=== PATIENT | female | born 1955 | race African-American/Black ===

== ENCOUNTER 2017-09-24 08:31 | Inpatient (IN) ==
[2017-09-24 10:11] LABS: Basophils % 0.3 % (0.0-0.8); Eosinophils # 0.2 10*3/uL (0.0-0.87); Eosinophils % 2.4 % (0.00-10.9); Hematocrit 31.1 VOL% (35.7-47.0); Hemoglobin 9.6 GM/DL (12.0-16.0); Immature Granulocytes % 0.3 %; Immature Granulocytes Absolute 0.02 #; Lymphocytes # 1.4 10*3/uL (1.4-4.0); Lymphocytes % 19.6 % (21.3-54.2); Mean Corpuscular HGB Conc 30.9 GM/DL (32-36); Mean Corpuscular Hemoglobin 29 PG (27-34); Mean Corpuscular Volume 93.1 FL (87-102); Mean Platelet Volume 11.9 FL (9.6-12.0); Monocytes # 0.6 10*3/uL (0.11-0.8); Monocytes % 8.2 % (1.7-12.7); Neutrophils % 69.2 % (38.7-73.9); Platelet Count 126 T/CUMM (130-400); Red Blood Count 3.34 MC/CUMM (3.8-5.5); Red Cell Distribution Width 12.7 % (9.3-17.3); White Blood Count 7.2 T/CUMM (4-12)
[2017-09-24 10:31] LABS: INR 0.9; Partial Thromboplastin Time 27.1 SECS (0-40)
[2017-09-24 10:38] LABS: Alanine Aminotransferase 19 U/L (13-56); Albumin 2.9 G/DL (3.4-5.0); Alkaline Phosphatase 63 U/L (45-117); Aspartate Amino Transferase 10 U/L (0-37); Bilirubin,Total < 0.39 MG/DL (0.2-1.0); Blood Urea Nitrogen 32 MG/DL (7-18); Calcium 8.1 MG/DL (8.5-10.1); Glucose 168 MG/DL (74-106); Osmolality,Calculated 300.6 MOS/KG (273-304); Potassium 4.2 MMOL/L (3.5-5.1); Sodium 146 MMOL/L (136-145); Total Protein 6.2 G/DL (6.4-8.3)
[2017-09-24] MEDS ORDERED: ONDANSETRON 4 MG/2 ML VIAL IV PRN (11:48)
[2017-09-24] MEDS ORDERED: KETOROLAC 30 MG/1 ML VIAL IV PRN (11:48)
[2017-09-24] MEDS ORDERED: ACETAMINOPHEN 325 MG TABLET PO PRN (11:48)
[2017-09-24] MEDS ORDERED: FUROSEMIDE 40 MG TABLET PO PRN (11:53)
[2017-09-24] MEDS ORDERED: NON-FORMULARY MEDICATION (Albuterol Inhaler 2 PUFF) INH PRN (11:53)
[2017-09-24] MEDS ORDERED: ENOXAPARIN 30 MG/0.3 ML SYRINGE SUBCUT SCH ×2 (12:00→21:00)
[2017-09-24] MEDS ORDERED: KETOROLAC 30 MG/1 ML VIAL IM PRN (16:11)
[2017-09-24] MEDS ORDERED: INSULIN DETEMIR 100 UNIT/ML SUBCUT SCH ×2 (16:30→17:00)
[2017-09-24] MEDS ORDERED: GLUCAGON 1 MG VIAL IM PRN (16:38)
[2017-09-24] MEDS ORDERED: KETOROLAC 0.4% LEFT EYE SCH (17:00)
[2017-09-24] MEDS: INSULIN LISPRO 100 UNIT/ML SUBCUT SCH (17:50)
[2017-09-24] MEDS ORDERED: ISOSORBIDE MONONITRATE 30 MG TABLET PO SCH (21:00)
[2017-09-24] MEDS ORDERED: PREGABALIN 100 MG CAPSULE PO SCH (21:00)
[2017-09-24] MEDS ORDERED: levETIRAcetam 500 MG TABLET PO SCH (21:00)
[2017-09-24] MEDS ORDERED: INSULIN ASPART 20 UNIT SUBCUT SCH (21:00)
[2017-09-24] MEDS ORDERED: DOCUSATE SODIUM 100 MG CAPSULE PO SCH (21:00)
[2017-09-24] MEDS: levETIRAcetam 250 MG TABLET PO SCH (21:22)
[2017-09-24] MEDS: PREGABALIN 75 MG CAPSULE PO SCH (21:24)
[2017-09-24] MEDS: ISOSORBIDE MONONITRATE 30 MG TABLET PO SCH (21:24)
[2017-09-24] MEDS: INSULIN REGULAR 100 UNIT/ML SUBCUT SCH (21:24)
[2017-09-24] MEDS: ENOXAPARIN 30 MG/0.3 ML SYRINGE SUBCUT SCH (21:25)
[2017-09-24] MEDS: INSULIN GLARGINE 100 UNIT/ML SUBCUT SCH (21:25)
[2017-09-25 07:09] LABS: Basophils % 0.2 % (0.0-0.8); Eosinophils # 0.2 10*3/uL (0.0-0.87); Eosinophils % 3.2 % (0.00-10.9); Hematocrit 29.3 VOL% (35.7-47.0); Hemoglobin 8.8 GM/DL (12.0-16.0); Immature Granulocytes % 0.6 %; Immature Granulocytes Absolute 0.04 #; Lymphocytes # 1.4 10*3/uL (1.4-4.0); Lymphocytes % 22.5 % (21.3-54.2); Mean Corpuscular Hemoglobin 28 PG (27-34); Mean Corpuscular Volume 94.5 FL (87-102); Mean Platelet Volume 12.2 FL (9.6-12.0); Monocytes # 0.6 10*3/uL (0.11-0.8); Monocytes % 9.4 % (1.7-12.7); Neutrophils % 64.1 % (38.7-73.9); Platelet Count 127 T/CUMM (130-400); Red Cell Distribution Width 12.7 % (9.3-17.3); White Blood Count 6.2 T/CUMM (4-12)
[2017-09-25] MEDS ORDERED: INSULIN DETEMIR 100 UNIT/ML SUBCUT SCH (07:30)
[2017-09-25] MEDS ORDERED: GLIMEPIRIDE 2 MG TABLET PO SCH (08:00)
[2017-09-25] MEDS: OLMESARTAN 20 MG TABLET PO SCH (08:28)
[2017-09-25] MEDS: CHOLECALCIFEROL 1,000 UNIT TABLET PO SCH (08:28)
[2017-09-25] MEDS: ISOSORBIDE MONONITRATE 30 MG TABLET PO SCH ×2 (08:28→20:51)
[2017-09-25] MEDS: PREGABALIN 75 MG CAPSULE PO SCH ×2 (08:28→20:51)
[2017-09-25] MEDS: EZETIMIBE 10 MG TABLET PO SCH (08:28)
[2017-09-25] MEDS: INSULIN LISPRO 100 UNIT/ML SUBCUT SCH ×2 (08:29→16:46)
[2017-09-25] MEDS: sitaGLIPtin 100 MG TABLET PO SCH (08:29)
[2017-09-25] MEDS: INSULIN REGULAR 100 UNIT/ML SUBCUT SCH ×4 (08:29→20:50)
[2017-09-25] MEDS: levETIRAcetam 250 MG TABLET PO SCH ×2 (08:29→20:51)
[2017-09-25] MEDS: DOXAZOSIN 1 MG TABLET PO SCH (08:29)
[2017-09-25] MEDS: GLIMEPIRIDE 2 MG TABLET PO SCH (08:29)
[2017-09-25] MEDS: INSULIN GLARGINE 100 UNIT/ML SUBCUT SCH ×2 (08:29→20:51)
[2017-09-25] MEDS ORDERED: DOXAZOSIN 1 MG TABLET PO SCH (09:00)
[2017-09-25] MEDS ORDERED: OLMESARTAN 20 MG TABLET PO SCH (09:00)
[2017-09-25] MEDS ORDERED: NON-FORMULARY MEDICATION (Fluticasone/Vilanterol [Breo Ellipta 100-25 Mcg Inh] 1 PUFF) PO SCH (09:00)
[2017-09-25] MEDS ORDERED: NON-FORMULARY MEDICATION (Cholecalciferol (Vitamin D3) [Vitamin D3] 1,000 UNIT) PO SCH (09:00)
[2017-09-25] MEDS ORDERED: PANTOPRAZOLE 40 MG TABLET PO SCH (09:00)
[2017-09-25] MEDS: cefTRIAXone 1,000 MG in SYRINGE 1 EACH IV SCH (15:51)
[2017-09-25] MEDS: ENOXAPARIN 30 MG/0.3 ML SYRINGE SUBCUT SCH (20:50)
[2017-09-26] MEDS: ISOSORBIDE MONONITRATE 30 MG TABLET PO SCH ×2 (09:14→21:02)
[2017-09-26] MEDS: levETIRAcetam 250 MG TABLET PO SCH ×2 (09:14→21:01)
[2017-09-26] MEDS: CHOLECALCIFEROL 1,000 UNIT TABLET PO SCH (09:14)
[2017-09-26] MEDS: DOXAZOSIN 1 MG TABLET PO SCH (09:14)
[2017-09-26] MEDS: sitaGLIPtin 100 MG TABLET PO SCH (09:14)
[2017-09-26] MEDS: OLMESARTAN 20 MG TABLET PO SCH (09:15)
[2017-09-26] MEDS: INSULIN GLARGINE 100 UNIT/ML SUBCUT SCH ×2 (09:15→21:06)
[2017-09-26] MEDS: INSULIN LISPRO 100 UNIT/ML SUBCUT SCH ×2 (09:15→16:59)
[2017-09-26] MEDS: GLIMEPIRIDE 2 MG TABLET PO SCH (09:15)
[2017-09-26] MEDS: EZETIMIBE 10 MG TABLET PO SCH (09:15)
[2017-09-26] MEDS: INSULIN REGULAR 100 UNIT/ML SUBCUT SCH ×4 (09:16→21:05)
[2017-09-26] MEDS: PREGABALIN 75 MG CAPSULE PO SCH ×2 (09:46→21:01)
[2017-09-26] MEDS: cefTRIAXone 1,000 MG in SYRINGE 1 EACH IV SCH (14:53)
[2017-09-26] MEDS ORDERED: CHLORHEXIDINE 4% SOLN 118 ML BOTTLE TOP ONE (17:25)
[2017-09-26] MEDS: SKIN HEALING OINT (AQUAPHOR) 50 GM TUBE TOP SCH (18:26)
[2017-09-26] MEDS: BACITRACIN OINT 0.9 GM PACK TOP SCH (18:26)
[2017-09-26] MEDS: ENOXAPARIN 30 MG/0.3 ML SYRINGE SUBCUT SCH (21:02)
[2017-09-27 07:20] LABS: Basophils % 0.1 % (0.0-0.8); Eosinophils # 0.1 10*3/uL (0.0-0.87); Immature Granulocytes % 0.4 %; Immature Granulocytes Absolute 0.03 #; Lymphocytes # 0.9 10*3/uL (1.4-4.0); Lymphocytes % 13.7 % (21.3-54.2); Mean Corpuscular Hemoglobin 29 PG (27-34); Mean Corpuscular Volume 92.1 FL (87-102); Mean Platelet Volume 12.4 FL (9.6-12.0); Monocytes # 0.7 10*3/uL (0.11-0.8); Monocytes % 10.2 % (1.7-12.7); Neutrophils # 5.1 10*3/uL (1.4-7.4); Neutrophils % 74.6 % (38.7-73.9); Platelet Count 133 T/CUMM (130-400); Red Blood Count 3.15 MC/CUMM (3.8-5.5); Red Cell Distribution Width 12.6 % (9.3-17.3); White Blood Count 6.9 T/CUMM (4-12)
[2017-09-27 07:43] LABS: Albumin 2.6 G/DL (3.4-5.0); Bilirubin,Total 0.9 MG/DL (0.2-1.0); Calcium 8.3 MG/DL (8.5-10.1); Osmolality,Calculated 291.7 MOS/KG (273-304); Potassium 4.9 MMOL/L (3.5-5.1); Total Protein 5.6 G/DL (6.4-8.3)
[2017-09-27] MEDS: DEXTROSE 50% 25 GM/50 ML VIAL IV PRN (08:05)
[2017-09-27] MEDS: INSULIN REGULAR 100 UNIT/ML SUBCUT SCH ×4 (08:27→20:38)
[2017-09-27] MEDS: GLIMEPIRIDE 2 MG TABLET PO SCH (08:27)
[2017-09-27] MEDS ORDERED: SKIN HEALING OINT (AQUAPHOR) 50 GM TUBE TOP SCH (09:00)
[2017-09-27] MEDS: PREGABALIN 75 MG CAPSULE PO SCH ×2 (09:21→20:08)
[2017-09-27] MEDS: EZETIMIBE 10 MG TABLET PO SCH (09:21)
[2017-09-27] MEDS: levETIRAcetam 250 MG TABLET PO SCH ×2 (09:21→20:07)
[2017-09-27] MEDS: BACITRACIN OINT 0.9 GM PACK TOP SCH (09:22)
[2017-09-27] MEDS: DOXAZOSIN 1 MG TABLET PO SCH (09:22)
[2017-09-27] MEDS: CHOLECALCIFEROL 1,000 UNIT TABLET PO SCH (09:22)
[2017-09-27] MEDS: OLMESARTAN 20 MG TABLET PO SCH (09:22)
[2017-09-27] MEDS: ISOSORBIDE MONONITRATE 30 MG TABLET PO SCH ×2 (09:22→20:08)
[2017-09-27] MEDS: FERROUS SULFATE 325 MG TABLET PO SCH (09:24)
[2017-09-27] MEDS: SKIN HEALING OINT (AQUAPHOR) 50 GM TUBE TOP SCH (09:24)
[2017-09-27] MEDS: sitaGLIPtin 100 MG TABLET PO SCH (10:05)
[2017-09-27] MEDS: INSULIN LISPRO 100 UNIT/ML SUBCUT SCH (10:05)
[2017-09-27] MEDS: ALBUTEROL/IPRATROPIUM 3 ML NEB RESP TX SCH ×4 (11:58→22:03)
[2017-09-27] MEDS: cefTRIAXone 1,000 MG in SYRINGE 1 EACH IV SCH (15:47)
[2017-09-27] MEDS: ENOXAPARIN 30 MG/0.3 ML SYRINGE SUBCUT SCH (20:08)
[2017-09-28] MEDS: ALBUTEROL/IPRATROPIUM 3 ML NEB RESP TX SCH ×6 (01:02→19:16)
[2017-09-28 05:41] LABS: Basophils % 0.2 % (0.0-0.8); Eosinophils # 0.2 10*3/uL (0.0-0.87); Eosinophils % 2.4 % (0.00-10.9); Hematocrit 27.4 VOL% (35.7-47.0); Hemoglobin 8.5 GM/DL (12.0-16.0); Immature Granulocytes % 0.5 %; Immature Granulocytes Absolute 0.03 #; Lymphocytes # 1.1 10*3/uL (1.4-4.0); Lymphocytes % 17.5 % (21.3-54.2); Mean Corpuscular Hemoglobin 29 PG (27-34); Mean Corpuscular Volume 91.9 FL (87-102); Mean Platelet Volume 11.9 FL (9.6-12.0); Monocytes # 0.6 10*3/uL (0.11-0.8); Monocytes % 10.1 % (1.7-12.7); Neutrophils # 4.4 10*3/uL (1.4-7.4); Neutrophils % 69.3 % (38.7-73.9); Platelet Count 124 T/CUMM (130-400); Red Blood Count 2.98 MC/CUMM (3.8-5.5); Red Cell Distribution Width 12.5 % (9.3-17.3); White Blood Count 6.3 T/CUMM (4-12)
[2017-09-28 06:24] LABS: Calcium 8.3 MG/DL (8.5-10.1); Osmolality,Calculated 301.7 MOS/KG (273-304)
[2017-09-28] MEDS: DOXAZOSIN 1 MG TABLET PO SCH (10:00)
[2017-09-28] MEDS: OLMESARTAN 20 MG TABLET PO SCH (10:00)
[2017-09-28] MEDS: sitaGLIPtin 100 MG TABLET PO SCH (10:00)
[2017-09-28] MEDS: SKIN HEALING OINT (AQUAPHOR) 50 GM TUBE TOP SCH (10:00)
[2017-09-28] MEDS: FERROUS SULFATE 325 MG TABLET PO SCH (10:00)
[2017-09-28] MEDS: PREGABALIN 75 MG CAPSULE PO SCH ×2 (10:00→22:05)
[2017-09-28] MEDS: BACITRACIN OINT 0.9 GM PACK TOP SCH (10:00)
[2017-09-28] MEDS: EZETIMIBE 10 MG TABLET PO SCH (10:00)
[2017-09-28] MEDS: levETIRAcetam 250 MG TABLET PO SCH ×2 (10:00→22:06)
[2017-09-28] MEDS: CHOLECALCIFEROL 1,000 UNIT TABLET PO SCH (10:00)
[2017-09-28] MEDS: ISOSORBIDE MONONITRATE 30 MG TABLET PO SCH ×2 (10:00→22:06)
[2017-09-28] MEDS: INSULIN REGULAR 100 UNIT/ML SUBCUT SCH ×4 (10:01→22:12)
[2017-09-28] MEDS: GLIMEPIRIDE 2 MG TABLET PO SCH (10:01)
[2017-09-28] MEDS ORDERED: SODIUM CHLORIDE 0.9% 1,000 ML IV PRN (16:19)
[2017-09-28] MEDS: cefTRIAXone 1,000 MG in SYRINGE 1 EACH IV SCH (17:20)
[2017-09-28] MEDS: predniSONE 20 MG TABLET PO SCH (18:42)
[2017-09-28] MEDS: FUROSEMIDE 40 MG/4 ML VIAL IV SCH (22:08)
[2017-09-28] MEDS: ENOXAPARIN 30 MG/0.3 ML SYRINGE SUBCUT SCH (22:12)
[2017-09-29] MEDS: ALBUTEROL/IPRATROPIUM 3 ML NEB RESP TX SCH ×3 (00:21→08:23)
[2017-09-29] MEDS: hydrALAZINE 25 MG TABLET PO SCH ×3 (01:08→09:52)
[2017-09-29] MEDS: INSULIN GLARGINE 100 UNIT/ML SUBCUT SCH ×3 (01:08→21:39)
[2017-09-29] MEDS: hydrALAZINE 20 MG/1 ML VIAL IV PRN (02:27)
[2017-09-29] MEDS ORDERED: METOPROLOL TARTRATE 5 MG/5 ML VIAL IV ONE (03:15)
[2017-09-29] MEDS ORDERED: FUROSEMIDE 40 MG/4 ML VIAL IV ONE (03:22)
[2017-09-29] MEDS ORDERED: FUROSEMIDE 20 MG/2 ML VIAL ONE (03:24)
[2017-09-29 04:55] LABS: Apearance,Urine CLEAR (Clear); Bilirubin,Urine Negative (Negative); Blood, Urine Negative (Negative); Glucose,Urine (UA) Negative (Negative); Hyaline Casts,Urine 2 /LPF (0-3); Ketones,Urine Negative (Negative); Mucus,Urine Occasional /LPF (Occasional); Nitrite,Urine Negative (Negative); Protein,Urine Negative; RBC,Urine <1 /HPF (0-4); Urine Color Straw (Yellow); Urine Specific Gravity 1.006 (1.001-1.035); Urine Urobilinogen < 2.0 EU/DL (0.2-1.0)
[2017-09-29 06:31] LABS: Basophils % 0.1 % (0.0-0.8); Eosinophils % 0.3 % (0.00-10.9); Hematocrit 30.5 VOL% (35.7-47.0); Hemoglobin 9.5 GM/DL (12.0-16.0); Immature Granulocytes % 0.8 %; Immature Granulocytes Absolute 0.06 #; Lymphocytes # 0.4 10*3/uL (1.4-4.0); Lymphocytes % 5.4 % (21.3-54.2); Mean Corpuscular HGB Conc 31.1 GM/DL (32-36); Mean Corpuscular Hemoglobin 28 PG (27-34); Mean Corpuscular Volume 91.3 FL (87-102); Mean Platelet Volume 12.4 FL (9.6-12.0); Monocytes # 0.2 10*3/uL (0.11-0.8); Neutrophils # 6.7 10*3/uL (1.4-7.4); Neutrophils % 90.4 % (38.7-73.9); Platelet Count 138 T/CUMM (130-400); Red Blood Count 3.34 MC/CUMM (3.8-5.5); Red Cell Distribution Width 12.4 % (9.3-17.3); White Blood Count 7.4 T/CUMM (4-12)
[2017-09-29 06:53] LABS: Albumin 2.8 G/DL (3.4-5.0); Bilirubin,Total 0.5 MG/DL (0.2-1.0); Calcium 8.4 MG/DL (8.5-10.1); Osmolality,Calculated 299.1 MOS/KG (273-304); Potassium 5.4 MMOL/L (3.5-5.1); Total Protein 6.3 G/DL (6.4-8.3)
[2017-09-29] MEDS ORDERED: INSULIN GLARGINE 100 UNIT/ML SUBCUT SCH (09:00)
[2017-09-29] MEDS: FUROSEMIDE 40 MG TABLET PO PRN (09:50)
[2017-09-29] MEDS: FERROUS SULFATE 325 MG TABLET PO SCH (09:50)
[2017-09-29] MEDS: predniSONE 20 MG TABLET PO SCH (09:51)
[2017-09-29] MEDS: ISOSORBIDE MONONITRATE 30 MG TABLET PO SCH ×2 (09:51→21:35)
[2017-09-29] MEDS: sitaGLIPtin 100 MG TABLET PO SCH (09:51)
[2017-09-29] MEDS: PREGABALIN 75 MG CAPSULE PO SCH ×2 (09:51→21:34)
[2017-09-29] MEDS: levETIRAcetam 250 MG TABLET PO SCH ×2 (09:51→21:34)
[2017-09-29] MEDS: EZETIMIBE 10 MG TABLET PO SCH (09:51)
[2017-09-29] MEDS: CHOLECALCIFEROL 1,000 UNIT TABLET PO SCH (09:51)
[2017-09-29] MEDS: OLMESARTAN 20 MG TABLET PO SCH (09:51)
[2017-09-29] MEDS: SKIN HEALING OINT (AQUAPHOR) 50 GM TUBE TOP SCH (09:52)
[2017-09-29] MEDS: BACITRACIN OINT 0.9 GM PACK TOP SCH (09:52)
[2017-09-29] MEDS: GLIMEPIRIDE 2 MG TABLET PO SCH ×3 (09:52→21:34)
[2017-09-29] MEDS: INSULIN REGULAR 100 UNIT/ML SUBCUT SCH ×4 (09:53→21:38)
[2017-09-29] MEDS: DOXAZOSIN 1 MG TABLET PO SCH (10:00)
[2017-09-29] MEDS: FUROSEMIDE 40 MG/4 ML VIAL IV SCH ×3 (10:14→11:20)
[2017-09-29] MEDS ORDERED: SODIUM POLYSTYRENE SULFATE 15 GM/60 ML BOTTLE PO STA (10:22)
[2017-09-29] MEDS: BUDESONIDE 0.25 MG/2 ML NEB RESP TX SCH ×2 (11:43→19:56)
[2017-09-29] MEDS: SODIUM CHLORIDE 0.45% 1,000 ML IV SCH (12:41)
[2017-09-29] MEDS: methylPREDNISolone SOD SUC 40 MG/1 ML VIAL IV SCH ×3 (12:43→17:37)
[2017-09-29] MEDS: cefTRIAXone 1,000 MG in SYRINGE 1 EACH IV SCH (15:31)
[2017-09-29] MEDS: ENOXAPARIN 30 MG/0.3 ML SYRINGE SUBCUT SCH (21:38)
[2017-09-30] MEDS: SODIUM CHLORIDE 0.45% 1,000 ML IV SCH ×2 (02:31→18:10)
[2017-09-30] MEDS: methylPREDNISolone SOD SUC 40 MG/1 ML VIAL IV SCH ×3 (02:32→18:09)
[2017-09-30] MEDS: BUDESONIDE 0.25 MG/2 ML NEB RESP TX SCH ×2 (07:10→19:36)
[2017-09-30 07:21] LABS: Basophils % 0.1 % (0.0-0.8); Hematocrit 30.2 VOL% (35.7-47.0); Hemoglobin 9.4 GM/DL (12.0-16.0); Immature Granulocytes % 0.6 %; Immature Granulocytes Absolute 0.04 #; Lymphocytes # 0.4 10*3/uL (1.4-4.0); Lymphocytes % 5.8 % (21.3-54.2); Mean Corpuscular HGB Conc 31.1 GM/DL (32-36); Mean Corpuscular Hemoglobin 28 PG (27-34); Mean Corpuscular Volume 91.2 FL (87-102); Monocytes # 0.2 10*3/uL (0.11-0.8); Neutrophils # 6.1 10*3/uL (1.4-7.4); Neutrophils % 90.5 % (38.7-73.9); Platelet Count 143 T/CUMM (130-400); Red Blood Count 3.31 MC/CUMM (3.8-5.5); Red Cell Distribution Width 12.3 % (9.3-17.3); White Blood Count 6.7 T/CUMM (4-12)
[2017-09-30 07:58] LABS: Bilirubin,Total 0.4 MG/DL (0.2-1.0); Calcium 8.6 MG/DL (8.5-10.1); Osmolality,Calculated 295.4 MOS/KG (273-304); Potassium 5.1 MMOL/L (3.5-5.1); Total Protein 6.3 G/DL (6.4-8.3)
[2017-09-30] MEDS ORDERED: ETOMIDATE 20 MG/10 ML VIAL IV ONE (10:04)
[2017-09-30] MEDS ORDERED: ROCURONIUM 100 MG/10 ML VIAL IV ONE (10:04)
[2017-09-30] MEDS ORDERED: PROPOFOL 1,000 MG/100 ML BOTTLE IV ONE (10:16)
[2017-09-30] MEDS: GLIMEPIRIDE 2 MG TABLET PO SCH ×2 (10:21→20:20)
[2017-09-30] MEDS: SKIN HEALING OINT (AQUAPHOR) 50 GM TUBE TOP SCH (10:21)
[2017-09-30] MEDS: INSULIN REGULAR 100 UNIT/ML SUBCUT SCH ×4 (10:21→20:54)
[2017-09-30] MEDS: levETIRAcetam 250 MG TABLET PO SCH ×2 (10:22→20:20)
[2017-09-30] MEDS: BACITRACIN OINT 0.9 GM PACK TOP SCH (10:22)
[2017-09-30] MEDS: PREGABALIN 75 MG CAPSULE PO SCH ×2 (10:22→20:20)
[2017-09-30] MEDS: DOXAZOSIN 1 MG TABLET PO SCH (10:22)
[2017-09-30] MEDS: predniSONE 20 MG TABLET PO SCH (10:22)
[2017-09-30] MEDS: FERROUS SULFATE 325 MG TABLET PO SCH (10:22)
[2017-09-30] MEDS: ISOSORBIDE MONONITRATE 30 MG TABLET PO SCH ×2 (10:22→21:14)
[2017-09-30] MEDS: sitaGLIPtin 100 MG TABLET PO SCH (10:22)
[2017-09-30] MEDS: OLMESARTAN 20 MG TABLET PO SCH (10:22)
[2017-09-30] MEDS: FUROSEMIDE 40 MG/4 ML VIAL IV SCH (10:22)
[2017-09-30] MEDS: CHOLECALCIFEROL 1,000 UNIT TABLET PO SCH (10:23)
[2017-09-30] MEDS: EZETIMIBE 10 MG TABLET PO SCH (10:23)
[2017-09-30] MEDS: PROPOFOL 1,000 MG/100 ML BOTTLE IV SCH ×5 (10:30→22:51)
[2017-09-30 12:33] LABS: ABG Base Excess 4.3 MMOL/L (-2.5-2.5); ABG HCO3 32.7 MMOL/L (20-26); ABG PH 7.262 (7.35-7.45); ABG TCO2 34.9 MMOL/L (23-27); Allen Test Positive; Pt O2 Delivery Device Ventilator
[2017-09-30 12:37] LABS: ABG PCO2 74.1 MM HG (35-48)
[2017-09-30] MEDS: cefTRIAXone 1,000 MG in SYRINGE 1 EACH IV SCH (16:11)
[2017-09-30] MEDS: hydrALAZINE 20 MG/1 ML VIAL IV PRN ×2 (18:09→23:09)
[2017-09-30] MEDS: ENOXAPARIN 30 MG/0.3 ML SYRINGE SUBCUT SCH (20:20)
[2017-09-30] MEDS: INSULIN GLARGINE 100 UNIT/ML SUBCUT SCH ×2 (20:54)
[2017-09-30] MEDS ORDERED: FUROSEMIDE 20 MG/2 ML VIAL IV ONE (22:21)
[2017-10-01] MEDS: PROPOFOL 1,000 MG/100 ML BOTTLE IV SCH ×13 (00:59→23:25)
[2017-10-01] MEDS: methylPREDNISolone SOD SUC 40 MG/1 ML VIAL IV SCH ×3 (02:37→18:20)
[2017-10-01] MEDS: SODIUM CHLORIDE 0.45% 1,000 ML IV SCH ×4 (02:40→21:37)
[2017-10-01 03:48] LABS: Basophils % 0.1 % (0.0-0.8); Eosinophils % 0.6 % (0.00-10.9); Hematocrit 29.7 VOL% (35.7-47.0); Hemoglobin 9.3 GM/DL (12.0-16.0); Immature Granulocytes % 0.6 %; Immature Granulocytes Absolute 0.04 #; Lymphocytes % 13.7 % (21.3-54.2); Mean Corpuscular HGB Conc 31.3 GM/DL (32-36); Mean Corpuscular Hemoglobin 28 PG (27-34); Mean Corpuscular Volume 88.9 FL (87-102); Mean Platelet Volume 12.4 FL (9.6-12.0); Monocytes # 0.5 10*3/uL (0.11-0.8); Neutrophils # 5.6 10*3/uL (1.4-7.4); Platelet Count 158 T/CUMM (130-400); Red Blood Count 3.34 MC/CUMM (3.8-5.5); Red Cell Distribution Width 12.2 % (9.3-17.3); White Blood Count 7.2 T/CUMM (4-12)
[2017-10-01 04:13] LABS: ABG Base Excess 7.3 MMOL/L (-2.5-2.5); ABG HCO3 31.2 MMOL/L (20-26); ABG Oxygen Saturation 99.3 % (95-100); ABG PCO2 32.3 MM HG (35-48); ABG PH 7.569 (7.35-7.45); ABG TCO2 26.8 MMOL/L (23-27); Allen Test Positive; Pt O2 Delivery Device Ventilator
[2017-10-01 04:25] LABS: Albumin 2.8 G/DL (3.4-5.0); Bilirubin,Total 0.5 MG/DL (0.2-1.0); Calcium 8.9 MG/DL (8.5-10.1); Osmolality,Calculated 295.3 MOS/KG (273-304); Potassium 4.2 MMOL/L (3.5-5.1); Total Protein 5.7 G/DL (6.4-8.3)
[2017-10-01] MEDS: hydrALAZINE 20 MG/1 ML VIAL IV PRN ×3 (05:34→18:23)
[2017-10-01] MEDS: INSULIN REGULAR 100 UNIT/ML SUBCUT SCH ×4 (08:17→20:10)
[2017-10-01] MEDS: predniSONE 20 MG TABLET PO SCH (08:19)
[2017-10-01] MEDS: DOXAZOSIN 1 MG TABLET PO SCH (08:19)
[2017-10-01] MEDS: FERROUS SULFATE 325 MG TABLET PO SCH (08:19)
[2017-10-01] MEDS: levETIRAcetam 250 MG TABLET PO SCH (08:19)
[2017-10-01] MEDS: CHOLECALCIFEROL 1,000 UNIT TABLET PO SCH (08:19)
[2017-10-01] MEDS: PREGABALIN 75 MG CAPSULE PO SCH ×2 (08:19→20:07)
[2017-10-01] MEDS: OLMESARTAN 20 MG TABLET PO SCH (08:20)
[2017-10-01] MEDS: EZETIMIBE 10 MG TABLET PO SCH (08:21)
[2017-10-01] MEDS: ISOSORBIDE MONONITRATE 30 MG TABLET PO SCH ×2 (08:21→20:08)
[2017-10-01] MEDS: GLIMEPIRIDE 2 MG TABLET PO SCH ×2 (08:21→20:08)
[2017-10-01] MEDS: SKIN HEALING OINT (AQUAPHOR) 50 GM TUBE TOP SCH (08:24)
[2017-10-01] MEDS: FUROSEMIDE 40 MG/4 ML VIAL IV SCH (08:24)
[2017-10-01] MEDS: sitaGLIPtin 100 MG TABLET PO SCH (08:26)
[2017-10-01] MEDS: BACITRACIN OINT 0.9 GM PACK TOP SCH (08:45)
[2017-10-01] MEDS: BUDESONIDE 0.25 MG/2 ML NEB RESP TX SCH ×2 (08:50→19:35)
[2017-10-01] MEDS: cefTRIAXone 500 MG in SYRINGE 1 EACH IV SCH (10:43)
[2017-10-01] MEDS: cefTRIAXone 1,000 MG in SYRINGE 1 EACH IV SCH (14:09)
[2017-10-01] MEDS: ENOXAPARIN 40 MG/0.4 ML SYRINGE SUBCUT SCH (20:07)
[2017-10-01] MEDS: INSULIN GLARGINE 100 UNIT/ML SUBCUT SCH ×2 (20:10)
[2017-10-02] MEDS: PROPOFOL 1,000 MG/100 ML BOTTLE IV SCH ×8 (01:06→16:50)
[2017-10-02] MEDS: methylPREDNISolone SOD SUC 40 MG/1 ML VIAL IV SCH ×3 (02:09→18:35)
[2017-10-02 04:08] LABS: ABG Base Excess 4.5 MMOL/L (-2.5-2.5); ABG HCO3 26.1 MMOL/L (20-26); ABG Oxygen Saturation 98.2 % (95-100); ABG PCO2 28.5 MM HG (35-48); ABG PH 7.579 (7.35-7.45); ABG PO2 164.1 MM HG (80-95); ABG TCO2 26.9 MMOL/L (23-27)
[2017-10-02 06:03] LABS: Basophils % 0.1 % (0.0-0.8); Eosinophils # 0.1 10*3/uL (0.0-0.87); Eosinophils % 0.9 % (0.00-10.9); Hematocrit 30.4 VOL% (35.7-47.0); Hemoglobin 10.2 GM/DL (12.0-16.0); Immature Granulocytes % 0.4 %; Immature Granulocytes Absolute 0.03 #; Lymphocytes # 0.9 10*3/uL (1.4-4.0); Lymphocytes % 13.6 % (21.3-54.2); Mean Corpuscular HGB Conc 33.6 GM/DL (32-36); Mean Corpuscular Hemoglobin 30 PG (27-34); Mean Corpuscular Volume 88.6 FL (87-102); Monocytes # 0.5 10*3/uL (0.11-0.8); Monocytes % 7.8 % (1.7-12.7); Neutrophils # 5.2 10*3/uL (1.4-7.4); Neutrophils % 77.2 % (38.7-73.9); Platelet Count 167 T/CUMM (130-400); Red Blood Count 3.43 MC/CUMM (3.8-5.5); Red Cell Distribution Width 12.6 % (9.3-17.3); White Blood Count 6.8 T/CUMM (4-12)
[2017-10-02] MEDS: BUDESONIDE 0.25 MG/2 ML NEB RESP TX SCH ×2 (07:30→19:27)
[2017-10-02] MEDS: CHOLECALCIFEROL 1,000 UNIT TABLET PO SCH (08:16)
[2017-10-02] MEDS: FERROUS SULFATE 325 MG TABLET PO SCH (08:16)
[2017-10-02] MEDS: DOXAZOSIN 1 MG TABLET PO SCH (08:16)
[2017-10-02] MEDS: EZETIMIBE 10 MG TABLET PO SCH (08:16)
[2017-10-02] MEDS: predniSONE 20 MG TABLET PO SCH (08:16)
[2017-10-02] MEDS: PREGABALIN 75 MG CAPSULE PO SCH ×2 (08:16→21:14)
[2017-10-02] MEDS: OLMESARTAN 20 MG TABLET PO SCH (08:16)
[2017-10-02] MEDS: ISOSORBIDE MONONITRATE 30 MG TABLET PO SCH ×2 (08:17→21:15)
[2017-10-02] MEDS: SKIN HEALING OINT (AQUAPHOR) 50 GM TUBE TOP SCH (08:17)
[2017-10-02] MEDS: INSULIN REGULAR 100 UNIT/ML SUBCUT SCH ×4 (08:17→21:15)
[2017-10-02] MEDS: GLIMEPIRIDE 2 MG TABLET PO SCH ×2 (08:17→21:14)
[2017-10-02] MEDS: FUROSEMIDE 40 MG/4 ML VIAL IV SCH (08:18)
[2017-10-02] MEDS: sitaGLIPtin 100 MG TABLET PO SCH (08:18)
[2017-10-02] MEDS: BACITRACIN OINT 0.9 GM PACK TOP SCH (08:18)
[2017-10-02] MEDS: cefTRIAXone 500 MG in SYRINGE 1 EACH IV SCH (09:33)
[2017-10-02] MEDS: MIDAZOLAM 100 MG in SODIUM CHLORIDE 0.9% 80 ML IV SCH (09:37)
[2017-10-02] MEDS: SODIUM CHLORIDE 0.45% 1,000 ML IV SCH (11:05)
[2017-10-02] MEDS: cefTRIAXone 1,000 MG in SYRINGE 1 EACH IV SCH (16:00)
[2017-10-02] MEDS: INSULIN GLARGINE 100 UNIT/ML SUBCUT SCH ×2 (21:16)
[2017-10-02] MEDS: ENOXAPARIN 40 MG/0.4 ML SYRINGE SUBCUT SCH (21:24)
[2017-10-03] MEDS: SODIUM CHLORIDE 0.45% 1,000 ML IV SCH ×3 (01:00→21:00)
[2017-10-03] MEDS: MIDAZOLAM 100 MG in SODIUM CHLORIDE 0.9% 80 ML IV SCH ×2 (02:04→14:05)
[2017-10-03] MEDS: methylPREDNISolone SOD SUC 40 MG/1 ML VIAL IV SCH ×3 (03:45→18:35)
[2017-10-03 03:54] LABS: ABG Base Excess 5.1 MMOL/L (-2.5-2.5); ABG Oxygen Saturation 99.1 % (95-100); ABG PCO2 39.2 MM HG (35-48); ABG PH 7.477 (7.35-7.45); ABG TCO2 26.2 MMOL/L (23-27); Allen Test Positive; Pt O2 Delivery Device Ventilator
[2017-10-03 05:08] LABS: Basophils % 0.2 % (0.0-0.8); Eosinophils # 0.1 10*3/uL (0.0-0.87); Eosinophils % 1.2 % (0.00-10.9); Hematocrit 30.7 VOL% (35.7-47.0); Hemoglobin 9.6 GM/DL (12.0-16.0); Immature Granulocytes % 0.2 %; Immature Granulocytes Absolute 0.01 #; Lymphocytes % 16.5 % (21.3-54.2); Mean Corpuscular HGB Conc 31.3 GM/DL (32-36); Mean Corpuscular Hemoglobin 28 PG (27-34); Mean Corpuscular Volume 88.2 FL (87-102); Mean Platelet Volume 12.1 FL (9.6-12.0); Monocytes # 0.4 10*3/uL (0.11-0.8); Monocytes % 7.7 % (1.7-12.7); Neutrophils # 4.3 10*3/uL (1.4-7.4); Neutrophils % 74.2 % (38.7-73.9); Platelet Count 157 T/CUMM (130-400); Red Blood Count 3.48 MC/CUMM (3.8-5.5); Red Cell Distribution Width 12.8 % (9.3-17.3); White Blood Count 5.8 T/CUMM (4-12)
[2017-10-03 05:39] LABS: Calcium 8.1 MG/DL (8.5-10.1); Osmolality,Calculated 296.1 MOS/KG (273-304); Potassium 4.2 MMOL/L (3.5-5.1)
[2017-10-03] MEDS: hydrALAZINE 20 MG/1 ML VIAL IV PRN (06:38)
[2017-10-03] MEDS: BUDESONIDE 0.25 MG/2 ML NEB RESP TX SCH ×2 (07:29→18:30)
[2017-10-03] MEDS: GLIMEPIRIDE 2 MG TABLET PO SCH ×2 (08:55→20:58)
[2017-10-03] MEDS: INSULIN REGULAR 100 UNIT/ML SUBCUT SCH ×3 (08:55→17:25)
[2017-10-03] MEDS: sitaGLIPtin 100 MG TABLET PO SCH (08:56)
[2017-10-03] MEDS: ISOSORBIDE MONONITRATE 30 MG TABLET PO SCH (09:12)
[2017-10-03] MEDS: PREGABALIN 75 MG CAPSULE PO SCH ×2 (09:15→20:57)
[2017-10-03] MEDS: FERROUS SULFATE 325 MG TABLET PO SCH (09:16)
[2017-10-03] MEDS: OLMESARTAN 20 MG TABLET PO SCH (09:17)
[2017-10-03] MEDS: CHOLECALCIFEROL 1,000 UNIT TABLET PO SCH (09:17)
[2017-10-03] MEDS: predniSONE 20 MG TABLET PO SCH (09:19)
[2017-10-03] MEDS: DOXAZOSIN 1 MG TABLET PO SCH (09:21)
[2017-10-03] MEDS: EZETIMIBE 10 MG TABLET PO SCH (09:22)
[2017-10-03] MEDS: FUROSEMIDE 40 MG/4 ML VIAL IV SCH (09:32)
[2017-10-03] MEDS: cefTRIAXone 500 MG in SYRINGE 1 EACH IV SCH (09:40)
[2017-10-03] MEDS: BACITRACIN OINT 0.9 GM PACK TOP SCH (11:38)
[2017-10-03] MEDS: SKIN HEALING OINT (AQUAPHOR) 50 GM TUBE TOP SCH (15:13)
[2017-10-03] MEDS: GENTAMICIN 0.1% CREAM 15 GM TUBE TOP SCH (15:14)
[2017-10-03] MEDS: PROPOFOL 1,000 MG/100 ML BOTTLE IV SCH ×2 (15:22→22:00)
[2017-10-03] MEDS: cefTRIAXone 1,000 MG in SYRINGE 1 EACH IV SCH (16:02)
[2017-10-03] MEDS: ENOXAPARIN 40 MG/0.4 ML SYRINGE SUBCUT SCH (20:57)
[2017-10-03] MEDS: ISOSORBIDE DINITRATE 20 MG TABLET PO SCH (20:58)
[2017-10-03] MEDS: INSULIN GLARGINE 100 UNIT/ML SUBCUT SCH ×2 (20:58→20:59)
[2017-10-04] MEDS: INSULIN REGULAR 100 UNIT/ML SUBCUT SCH ×4 (00:04→17:40)
[2017-10-04] MEDS: methylPREDNISolone SOD SUC 40 MG/1 ML VIAL IV SCH ×3 (02:23→17:40)
[2017-10-04] MEDS: MIDAZOLAM 100 MG in SODIUM CHLORIDE 0.9% 80 ML IV SCH ×3 (02:53→20:06)
[2017-10-04 03:07] LABS: ABG Base Excess 3.5 MMOL/L (-2.5-2.5); ABG HCO3 27.6 MMOL/L (20-26); ABG Oxygen Saturation 98.5 % (95-100); ABG PH 7.474 (7.35-7.45); ABG TCO2 24.7 MMOL/L (23-27); Pt O2 Delivery Device Ventilator
[2017-10-04] MEDS: SODIUM CHLORIDE 0.45% 1,000 ML IV SCH ×3 (05:27→19:07)
[2017-10-04] MEDS: PROPOFOL 1,000 MG/100 ML BOTTLE IV SCH ×3 (05:28→17:41)
[2017-10-04 05:48] LABS: Prealbumin 23.2 MG/DL (20-40)
[2017-10-04] MEDS: BUDESONIDE 0.25 MG/2 ML NEB RESP TX SCH ×2 (07:30→19:47)
[2017-10-04] MEDS: hydrALAZINE 20 MG/1 ML VIAL IV PRN (09:00)
[2017-10-04] MEDS: ZINC OXIDE PASTE 113 GM TUBE TOP SCH (10:25)
[2017-10-04] MEDS: BACITRACIN OINT 0.9 GM PACK TOP SCH (10:25)
[2017-10-04] MEDS: DOXAZOSIN 1 MG TABLET PO SCH (10:25)
[2017-10-04] MEDS: SKIN HEALING OINT (AQUAPHOR) 50 GM TUBE TOP SCH (10:25)
[2017-10-04] MEDS: FERROUS SULFATE 325 MG TABLET PO SCH (10:25)
[2017-10-04] MEDS: OLMESARTAN 20 MG TABLET PO SCH (10:25)
[2017-10-04] MEDS: GLIMEPIRIDE 2 MG TABLET PO SCH ×2 (10:25→20:06)
[2017-10-04] MEDS: GENTAMICIN 0.1% CREAM 15 GM TUBE TOP SCH (10:26)
[2017-10-04] MEDS: FUROSEMIDE 40 MG/4 ML VIAL IV SCH (10:26)
[2017-10-04] MEDS: PREGABALIN 75 MG CAPSULE PO SCH ×2 (10:26→20:06)
[2017-10-04] MEDS: predniSONE 20 MG TABLET PO SCH (10:26)
[2017-10-04] MEDS: sitaGLIPtin 100 MG TABLET PO SCH (10:26)
[2017-10-04] MEDS: ISOSORBIDE DINITRATE 20 MG TABLET PO SCH ×3 (10:26→20:06)
[2017-10-04] MEDS: EZETIMIBE 10 MG TABLET PO SCH (10:27)
[2017-10-04] MEDS: CHOLECALCIFEROL 1,000 UNIT TABLET PO SCH (10:27)
[2017-10-04] MEDS: FUROSEMIDE 40 MG TABLET PO PRN (10:28)
[2017-10-04 10:30] LABS: Basophils % 0.1 % (0.0-0.8); Eosinophils % 0.5 % (0.00-10.9); Hematocrit 30.4 VOL% (35.7-47.0); Hemoglobin 9.5 GM/DL (12.0-16.0); Immature Granulocytes % 0.5 %; Immature Granulocytes Absolute 0.04 #; Lymphocytes # 0.5 10*3/uL (1.4-4.0); Mean Corpuscular HGB Conc 31.3 GM/DL (32-36); Mean Corpuscular Hemoglobin 28 PG (27-34); Mean Corpuscular Volume 89.4 FL (87-102); Mean Platelet Volume 11.5 FL (9.6-12.0); Monocytes # 0.6 10*3/uL (0.11-0.8); Monocytes % 7.6 % (1.7-12.7); Neutrophils # 6.5 10*3/uL (1.4-7.4); Neutrophils % 84.3 % (38.7-73.9); Platelet Count 151 T/CUMM (130-400); Red Cell Distribution Width 12.9 % (9.3-17.3); White Blood Count 7.7 T/CUMM (4-12)
[2017-10-04 11:25] LABS: Alanine Aminotransferase 37 U/L (13-56); Albumin 2.3 G/DL (3.4-5.0); Alkaline Phosphatase 53 U/L (45-117); Aspartate Amino Transferase 31 U/L (0-37); Bilirubin,Total < 0.39 MG/DL (0.2-1.0); Blood Urea Nitrogen 55 MG/DL (7-18); Calcium 7.8 MG/DL (8.5-10.1); Glucose 219 MG/DL (74-106); Osmolality,Calculated 296.7 MOS/KG (273-304); Sodium 138 MMOL/L (136-145); Total Protein 4.9 G/DL (6.4-8.3)
[2017-10-04] MEDS: cefTRIAXone 1,000 MG in SYRINGE 1 EACH IV SCH (16:10)
[2017-10-04] MEDS: ENOXAPARIN 40 MG/0.4 ML SYRINGE SUBCUT SCH (20:05)
[2017-10-04] MEDS: INSULIN GLARGINE 100 UNIT/ML SUBCUT SCH ×2 (22:03)
[2017-10-05] MEDS: INSULIN REGULAR 100 UNIT/ML SUBCUT SCH ×4 (00:10→17:40)
[2017-10-05] MEDS: PROPOFOL 1,000 MG/100 ML BOTTLE IV SCH ×4 (00:11→21:24)
[2017-10-05] MEDS: SODIUM CHLORIDE 0.45% 1,000 ML IV SCH ×4 (02:07→20:25)
[2017-10-05] MEDS: methylPREDNISolone SOD SUC 40 MG/1 ML VIAL IV SCH ×3 (02:08→17:46)
[2017-10-05 03:45] LABS: Allen Test Positive; Pt O2 Delivery Device Ventilator
[2017-10-05 03:52] LABS: ABG Base Excess 3.1 MMOL/L (-2.5-2.5); ABG HCO3 26.6 MMOL/L (20-26); ABG Oxygen Saturation 97.8 % (95-100); ABG PCO2 36.5 MM HG (35-48); ABG PH 7.481 (7.35-7.45); ABG TCO2 27.8 MMOL/L (23-27)
[2017-10-05 04:49] LABS: Eosinophils # 0.1 10*3/uL (0.0-0.87); Eosinophils % 0.7 % (0.00-10.9); Hematocrit 31.2 VOL% (35.7-47.0); Hemoglobin 10.1 GM/DL (12.0-16.0); Immature Granulocytes % 0.3 %; Immature Granulocytes Absolute 0.02 #; Lymphocytes # 0.7 10*3/uL (1.4-4.0); Lymphocytes % 10.4 % (21.3-54.2); Mean Corpuscular HGB Conc 32.4 GM/DL (32-36); Mean Corpuscular Hemoglobin 28 PG (27-34); Mean Corpuscular Volume 86.7 FL (87-102); Mean Platelet Volume 12.4 FL (9.6-12.0); Monocytes # 0.6 10*3/uL (0.11-0.8); Monocytes % 8.2 % (1.7-12.7); Neutrophils # 5.7 10*3/uL (1.4-7.4); Neutrophils % 80.4 % (38.7-73.9); Platelet Count 150 T/CUMM (130-400); Red Cell Distribution Width 12.8 % (9.3-17.3); White Blood Count 7.1 T/CUMM (4-12)
[2017-10-05 05:16] LABS: Albumin 2.5 G/DL (3.4-5.0); Bilirubin,Total 0.4 MG/DL (0.2-1.0); Osmolality,Calculated 300.1 MOS/KG (273-304); Total Protein 5.2 G/DL (6.4-8.3)
[2017-10-05] MEDS: BUDESONIDE 0.25 MG/2 ML NEB RESP TX SCH ×2 (07:32→20:40)
[2017-10-05] MEDS: FERROUS SULFATE 325 MG TABLET PO SCH (08:08)
[2017-10-05] MEDS: ISOSORBIDE DINITRATE 20 MG TABLET PO SCH ×2 (08:08→14:36)
[2017-10-05] MEDS: CHOLECALCIFEROL 1,000 UNIT TABLET PO SCH (08:08)
[2017-10-05] MEDS: DOXAZOSIN 1 MG TABLET PO SCH (08:08)
[2017-10-05] MEDS: OLMESARTAN 20 MG TABLET PO SCH (08:08)
[2017-10-05] MEDS: EZETIMIBE 10 MG TABLET PO SCH (08:09)
[2017-10-05] MEDS: FUROSEMIDE 40 MG/4 ML VIAL IV SCH (08:09)
[2017-10-05] MEDS: GLIMEPIRIDE 2 MG TABLET PO SCH ×2 (08:09→20:24)
[2017-10-05] MEDS: sitaGLIPtin 100 MG TABLET PO SCH (08:09)
[2017-10-05] MEDS: PREGABALIN 75 MG CAPSULE PO SCH ×2 (08:09→20:24)
[2017-10-05] MEDS: NAPROXEN 250 MG TABLET PO PRN ×2 (08:09→21:50)
[2017-10-05] MEDS: predniSONE 20 MG TABLET PO SCH (08:14)
[2017-10-05] MEDS: ZINC OXIDE PASTE 113 GM TUBE TOP SCH (11:35)
[2017-10-05] MEDS: MIDAZOLAM 100 MG in SODIUM CHLORIDE 0.9% 80 ML IV SCH (13:29)
[2017-10-05] MEDS: BACITRACIN OINT 0.9 GM PACK TOP SCH (14:35)
[2017-10-05] MEDS: SKIN HEALING OINT (AQUAPHOR) 50 GM TUBE TOP SCH (14:35)
[2017-10-05] MEDS: GENTAMICIN 0.1% CREAM 15 GM TUBE TOP SCH (14:35)
[2017-10-05] MEDS: cefTRIAXone 1,000 MG in SYRINGE 1 EACH IV SCH (15:50)
[2017-10-05] MEDS: ENOXAPARIN 40 MG/0.4 ML SYRINGE SUBCUT SCH (20:24)
[2017-10-05] MEDS ORDERED: SODIUM CHLORIDE 0.9% 500 ML IV ONE (21:18)
[2017-10-06] MEDS: PROPOFOL 1,000 MG/100 ML BOTTLE IV SCH ×7 (00:03→21:47)
[2017-10-06 00:10] LABS: ABG Base Excess -2.2 MMOL/L (-2.5-2.5); ABG HCO3 25.4 MMOL/L (20-26); ABG PCO2 58.4 MM HG (35-48); ABG PH 7.257 (7.35-7.45); ABG PO2 141.5 MM HG (80-95); ABG TCO2 27.2 MMOL/L (23-27)
[2017-10-06] MEDS ORDERED: fentaNYL 100 MCG/2 ML VIAL ONE (00:17)
[2017-10-06] MEDS: fentaNYL INJ 1,250 MCG in SODIUM CHLORIDE 0.9% 225 ML IV SCH ×3 (00:25→15:00)
[2017-10-06] MEDS ORDERED: LIDOCAINE 1% 20 ML VIAL MISC INJ ONE (00:30)
[2017-10-06] MEDS ORDERED: LIDOCAINE 2% 20 ML VIAL RESP TX ONE (00:30)
[2017-10-06] MEDS ORDERED: SODIUM CHLORIDE 0.9% 500 ML IV ONE (00:45)
[2017-10-06] MEDS ORDERED: ALBUTEROL/IPRATROPIUM 3 ML NEB RESP TX ONE (01:00)
[2017-10-06] MEDS ORDERED: fentaNYL 100 MCG/2 ML VIAL IV ONE (01:30)
[2017-10-06] MEDS: ISOSORBIDE DINITRATE 20 MG TABLET PO SCH ×4 (01:42→20:36)
[2017-10-06] MEDS: methylPREDNISolone SOD SUC 40 MG/1 ML VIAL IV SCH ×3 (02:00→15:39)
[2017-10-06] MEDS: INSULIN REGULAR 100 UNIT/ML SUBCUT SCH ×4 (02:06→18:11)
[2017-10-06 03:50] LABS: ABG Base Excess -1.9 MMOL/L (-2.5-2.5); ABG HCO3 22.8 MMOL/L (20-26); ABG Oxygen Saturation 99.4 % (95-100); ABG PCO2 56.8 MM HG (35-48); ABG PH 7.264 (7.35-7.45)
[2017-10-06] MEDS: ALBUTEROL/IPRATROPIUM 3 ML NEB RESP TX SCH ×4 (04:59→20:11)
[2017-10-06] MEDS: SODIUM CHLORIDE 0.45% 1,000 ML IV SCH ×3 (05:53→20:41)
[2017-10-06] MEDS: DORNASE ALFA 2.5 MG/2.5 ML VIAL RESP TX SCH ×4 (05:53→20:11)
[2017-10-06] MEDS: ALBUMIN 25% 25 GM in PREMIX 1 EACH IV SCH ×3 (06:59→21:41)
[2017-10-06 07:27] LABS: Basophils % 0.1 % (0.0-0.8); Eosinophils % 0.1 % (0.00-10.9); Hematocrit 31.3 VOL% (35.7-47.0); Hemoglobin 9.3 GM/DL (12.0-16.0); Immature Granulocytes % 0.5 %; Immature Granulocytes Absolute 0.05 #; Lymphocytes # 0.3 10*3/uL (1.4-4.0); Lymphocytes % 2.5 % (21.3-54.2); Mean Corpuscular HGB Conc 29.7 GM/DL (32-36); Mean Corpuscular Hemoglobin 28 PG (27-34); Mean Corpuscular Volume 95.1 FL (87-102); Mean Platelet Volume 12.7 FL (9.6-12.0); Monocytes # 0.5 10*3/uL (0.11-0.8); Monocytes % 4.9 % (1.7-12.7); Neutrophils # 9.6 10*3/uL (1.4-7.4); Neutrophils % 91.9 % (38.7-73.9); Platelet Count 135 T/CUMM (130-400); Red Blood Count 3.29 MC/CUMM (3.8-5.5); Red Cell Distribution Width 13.1 % (9.3-17.3); White Blood Count 10.4 T/CUMM (4-12)
[2017-10-06] MEDS: BUDESONIDE 0.25 MG/2 ML NEB RESP TX SCH ×2 (07:35→20:11)
[2017-10-06 07:49] LABS: Burr Cells Slight; Giant Platelets Few; Hypochromasia 1+; Lymphocytes 2 % (20-55); Ovalocytes Slight; Platelet Estimate Normal; Segmented Neutrophils 95 % (50-85); Total Cells Counted 100
[2017-10-06 07:55] LABS: Albumin 2.4 G/DL (3.4-5.0); Bilirubin,Total 0.4 MG/DL (0.2-1.0); Calcium 7.5 MG/DL (8.5-10.1); Osmolality,Calculated 298.8 MOS/KG (273-304); Total Protein 5.1 G/DL (6.4-8.3)
[2017-10-06] MEDS: PREGABALIN 75 MG CAPSULE PO SCH ×2 (08:50→20:36)
[2017-10-06] MEDS: sitaGLIPtin 100 MG TABLET PO SCH (08:50)
[2017-10-06] MEDS: GLIMEPIRIDE 2 MG TABLET PO SCH ×2 (08:50→20:36)
[2017-10-06] MEDS: FUROSEMIDE 40 MG/4 ML VIAL IV SCH (08:56)
[2017-10-06] MEDS: hydrALAZINE 20 MG/1 ML VIAL IV PRN ×2 (11:38→18:13)
[2017-10-06] MEDS: GENTAMICIN 0.1% CREAM 15 GM TUBE TOP SCH (13:47)
[2017-10-06] MEDS: ZINC OXIDE PASTE 113 GM TUBE TOP SCH (13:47)
[2017-10-06] MEDS: SKIN HEALING OINT (AQUAPHOR) 50 GM TUBE TOP SCH (13:47)
[2017-10-06] MEDS: BACITRACIN OINT 0.9 GM PACK TOP SCH (13:48)
[2017-10-06] MEDS: MIDAZOLAM 100 MG in SODIUM CHLORIDE 0.9% 80 ML IV SCH (13:49)
[2017-10-06] MEDS: cefTRIAXone 1,000 MG in SYRINGE 1 EACH IV SCH (16:15)
[2017-10-06] MEDS: fentaNYL INJ 2,500 MCG in SODIUM CHLORIDE 0.9% 450 ML IV SCH (19:26)
[2017-10-06] MEDS: ENOXAPARIN 40 MG/0.4 ML SYRINGE SUBCUT SCH (20:47)
[2017-10-07] MEDS: hydrALAZINE 20 MG/1 ML VIAL IV PRN ×4 (00:12→17:58)
[2017-10-07] MEDS: methylPREDNISolone SOD SUC 40 MG/1 ML VIAL IV SCH ×3 (00:15→17:50)
[2017-10-07] MEDS: PROPOFOL 1,000 MG/100 ML BOTTLE IV SCH ×8 (00:17→20:39)
[2017-10-07] MEDS: INSULIN REGULAR 100 UNIT/ML SUBCUT SCH ×4 (00:19→17:54)
[2017-10-07] MEDS: ALBUTEROL/IPRATROPIUM 3 ML NEB RESP TX SCH ×3 (00:25→12:24)
[2017-10-07] MEDS: fentaNYL INJ 2,500 MCG in SODIUM CHLORIDE 0.9% 450 ML IV SCH ×4 (01:37→17:59)
[2017-10-07] MEDS ORDERED: cloNIDine 0.1 MG TABLET PO ONE ×3 (03:00→12:54)
[2017-10-07 05:36] LABS: Hematocrit 24.8 VOL% (35.7-47.0); Hemoglobin 8.7 GM/DL (12.0-16.0); Immature Granulocytes % 1.1 %; Immature Granulocytes Absolute 0.07 #; Lymphocytes # 0.2 10*3/uL (1.4-4.0); Lymphocytes % 3.1 % (21.3-54.2); Mean Corpuscular HGB Conc 35.1 GM/DL (32-36); Mean Corpuscular Hemoglobin 31 PG (27-34); Mean Corpuscular Volume 87.6 FL (87-102); Mean Platelet Volume 13.7 FL (9.6-12.0); Monocytes # 0.4 10*3/uL (0.11-0.8); Neutrophils # 5.7 10*3/uL (1.4-7.4); Neutrophils % 89.8 % (38.7-73.9); Platelet Count 118 T/CUMM (130-400); Red Blood Count 2.83 MC/CUMM (3.8-5.5); White Blood Count 6.4 T/CUMM (4-12)
[2017-10-07 05:55] LABS: Calcium 7.2 MG/DL (8.5-10.1); Osmolality,Calculated 300.4 MOS/KG (273-304); Potassium 4.4 MMOL/L (3.5-5.1)
[2017-10-07 06:15] LABS: Burr Cells Slight; Hypochromasia 1+; Lymphocytes 1 % (20-55); Ovalocytes Slight; Platelet Estimate Decreased; Segmented Neutrophils 94 % (50-85); Total Cells Counted 100
[2017-10-07] MEDS: SODIUM CHLORIDE 0.45% 1,000 ML IV SCH ×5 (07:10→23:18)
[2017-10-07] MEDS: BUDESONIDE 0.25 MG/2 ML NEB RESP TX SCH ×2 (07:39→19:55)
[2017-10-07] MEDS: DORNASE ALFA 2.5 MG/2.5 ML VIAL RESP TX SCH ×2 (07:46→19:57)
[2017-10-07] MEDS: ARFORMOTEROL 15 MCG/2 ML NEB RESP TX SCH ×2 (10:19→19:55)
[2017-10-07] MEDS: GLIMEPIRIDE 2 MG TABLET PO SCH ×2 (10:38→20:37)
[2017-10-07] MEDS: BACITRACIN OINT 0.9 GM PACK TOP SCH (10:38)
[2017-10-07] MEDS: SKIN HEALING OINT (AQUAPHOR) 50 GM TUBE TOP SCH (10:38)
[2017-10-07] MEDS: ISOSORBIDE DINITRATE 20 MG TABLET PO SCH ×3 (10:39→20:34)
[2017-10-07] MEDS: GENTAMICIN 0.1% CREAM 15 GM TUBE TOP SCH (10:39)
[2017-10-07] MEDS: ZINC OXIDE PASTE 113 GM TUBE TOP SCH (10:39)
[2017-10-07] MEDS: sitaGLIPtin 100 MG TABLET PO SCH (10:39)
[2017-10-07] MEDS: FUROSEMIDE 40 MG/4 ML VIAL IV SCH (10:39)
[2017-10-07] MEDS: PREGABALIN 75 MG CAPSULE PO SCH ×2 (10:40→20:34)
[2017-10-07] MEDS: MIDAZOLAM 100 MG in SODIUM CHLORIDE 0.9% 80 ML IV SCH (10:41)
[2017-10-07] MEDS: FUROSEMIDE 40 MG TABLET PO PRN (10:42)
[2017-10-07] MEDS: cefTRIAXone 1,000 MG in SYRINGE 1 EACH IV SCH (14:06)
[2017-10-07] MEDS: hydrALAZINE 25 MG TABLET PO SCH ×2 (14:30→20:38)
[2017-10-07] MEDS: INSULIN GLARGINE 100 UNIT/ML SUBCUT SCH (14:30)
[2017-10-07] MEDS: INSULIN LISPRO 100 UNIT/ML SUBCUT SCH ×2 (17:50→20:38)
[2017-10-07] MEDS: ENOXAPARIN 40 MG/0.4 ML SYRINGE SUBCUT SCH (20:34)
[2017-10-08] MEDS: INSULIN REGULAR 100 UNIT/ML SUBCUT SCH ×5 (00:01→23:50)
[2017-10-08] MEDS: methylPREDNISolone SOD SUC 40 MG/1 ML VIAL IV SCH ×4 (00:01→23:50)
[2017-10-08] MEDS: MIDAZOLAM 100 MG in SODIUM CHLORIDE 0.9% 80 ML IV SCH ×2 (00:02→15:40)
[2017-10-08] MEDS: ALBUTEROL/IPRATROPIUM 3 ML NEB RESP TX PRN ×3 (00:33→13:13)
[2017-10-08] MEDS: PROPOFOL 1,000 MG/100 ML BOTTLE IV SCH ×5 (01:10→23:52)
[2017-10-08 03:00] LABS: ABG Base Excess -0.3 MMOL/L (-2.5-2.5); ABG HCO3 22.3 MMOL/L (20-26); ABG Oxygen Saturation 98.4 % (95-100); ABG PCO2 29.5 MM HG (35-48); ABG PH 7.497 (7.35-7.45); ABG PO2 165.2 MM HG (80-95); ABG TCO2 23.2 MMOL/L (23-27); Allen Test Positive; Pt O2 Delivery Device Ventilator
[2017-10-08] MEDS: fentaNYL INJ 2,500 MCG in SODIUM CHLORIDE 0.9% 450 ML IV SCH ×2 (04:42→18:01)
[2017-10-08 05:45] LABS: Eosinophils % 0.8 % (0.00-10.9); Hematocrit 26.4 VOL% (35.7-47.0); Hemoglobin 8.7 GM/DL (12.0-16.0); Immature Granulocytes % 1.8 %; Immature Granulocytes Absolute 0.09 #; Lymphocytes # 0.7 10*3/uL (1.4-4.0); Lymphocytes % 14.1 % (21.3-54.2); Mean Corpuscular Hemoglobin 29 PG (27-34); Mean Corpuscular Volume 88.6 FL (87-102); Mean Platelet Volume 13.1 FL (9.6-12.0); Monocytes # 0.6 10*3/uL (0.11-0.8); Monocytes % 11.2 % (1.7-12.7); Neutrophils # 3.6 10*3/uL (1.4-7.4); Neutrophils % 72.1 % (38.7-73.9); Platelet Count 131 T/CUMM (130-400); Red Blood Count 2.98 MC/CUMM (3.8-5.5); Red Cell Distribution Width 13.1 % (9.3-17.3)
[2017-10-08 06:27] LABS: Albumin 2.5 G/DL (3.4-5.0); Bilirubin,Total 0.4 MG/DL (0.2-1.0); Calcium 7.7 MG/DL (8.5-10.1); Osmolality,Calculated 306.4 MOS/KG (273-304); Potassium 4.3 MMOL/L (3.5-5.1)
[2017-10-08] MEDS: BUDESONIDE 0.25 MG/2 ML NEB RESP TX SCH ×2 (07:40→20:19)
[2017-10-08] MEDS: ARFORMOTEROL 15 MCG/2 ML NEB RESP TX SCH ×2 (07:49→20:18)
[2017-10-08] MEDS: DORNASE ALFA 2.5 MG/2.5 ML VIAL RESP TX SCH ×2 (07:55→20:19)
[2017-10-08] MEDS: PREGABALIN 75 MG CAPSULE PO SCH ×2 (09:30→20:25)
[2017-10-08] MEDS: INSULIN GLARGINE 100 UNIT/ML SUBCUT SCH (09:30)
[2017-10-08] MEDS: GLIMEPIRIDE 2 MG TABLET PO SCH ×2 (09:30→20:26)
[2017-10-08] MEDS: sitaGLIPtin 100 MG TABLET PO SCH (09:30)
[2017-10-08] MEDS: FUROSEMIDE 40 MG/4 ML VIAL IV SCH (09:30)
[2017-10-08] MEDS: hydrALAZINE 25 MG TABLET PO SCH ×3 (09:30→20:25)
[2017-10-08] MEDS: ISOSORBIDE DINITRATE 20 MG TABLET PO SCH ×3 (09:30→20:26)
[2017-10-08] MEDS: INSULIN LISPRO 100 UNIT/ML SUBCUT SCH ×4 (12:00→20:24)
[2017-10-08] MEDS: SODIUM CHLORIDE 0.45% 1,000 ML IV SCH ×3 (15:35→23:51)
[2017-10-08] MEDS: SKIN HEALING OINT (AQUAPHOR) 50 GM TUBE TOP SCH (15:37)
[2017-10-08] MEDS: ZINC OXIDE PASTE 113 GM TUBE TOP SCH (15:38)
[2017-10-08] MEDS: GENTAMICIN 0.1% CREAM 15 GM TUBE TOP SCH (15:38)
[2017-10-08] MEDS: BACITRACIN OINT 0.9 GM PACK TOP SCH (15:38)
[2017-10-08] MEDS: cefTRIAXone 1,000 MG in SYRINGE 1 EACH IV SCH (15:42)
[2017-10-08] MEDS: FUROSEMIDE 40 MG TABLET PO PRN (18:02)
[2017-10-08] MEDS: ENOXAPARIN 40 MG/0.4 ML SYRINGE SUBCUT SCH (20:25)
[2017-10-09 03:24] LABS: ABG Base Excess -1.8 MMOL/L (-2.5-2.5); ABG HCO3 24.5 MMOL/L (20-26); ABG PCO2 49.3 MM HG (35-48); ABG PH 7.314 (7.35-7.45); ABG PO2 133.5 MM HG (80-95); Allen Test Positive; Pt O2 Delivery Device Ventilator
[2017-10-09 04:52] LABS: Hematocrit 29.4 VOL% (35.7-47.0); Hemoglobin 8.9 GM/DL (12.0-16.0); Immature Granulocytes % 1.4 %; Immature Granulocytes Absolute 0.11 #; Lymphocytes # 0.3 10*3/uL (1.4-4.0); Lymphocytes % 4.1 % (21.3-54.2); Mean Corpuscular HGB Conc 30.3 GM/DL (32-36); Mean Corpuscular Hemoglobin 28 PG (27-34); Mean Corpuscular Volume 92.5 FL (87-102); Mean Platelet Volume 12.8 FL (9.6-12.0); Monocytes # 0.4 10*3/uL (0.11-0.8); Neutrophils # 6.8 10*3/uL (1.4-7.4); Neutrophils % 89.5 % (38.7-73.9); Platelet Count 143 T/CUMM (130-400); Red Blood Count 3.18 MC/CUMM (3.8-5.5); Red Cell Distribution Width 13.3 % (9.3-17.3); White Blood Count 7.6 T/CUMM (4-12)
[2017-10-09 05:20] LABS: Hypochromasia 1+; Lymphocytes 2 % (20-55); Microcytosis Slight; Ovalocytes Slight; Segmented Neutrophils 95 % (50-85); Total Cells Counted 100
[2017-10-09] MEDS: SODIUM CHLORIDE 0.45% 1,000 ML IV SCH ×3 (05:28→13:14)
[2017-10-09 05:30] LABS: Calcium 7.8 MG/DL (8.5-10.1)
[2017-10-09] MEDS: MIDAZOLAM 100 MG in SODIUM CHLORIDE 0.9% 80 ML IV SCH ×2 (05:42→10:25)
[2017-10-09] MEDS: INSULIN REGULAR 100 UNIT/ML SUBCUT SCH ×3 (05:42→17:10)
[2017-10-09] MEDS: PROPOFOL 1,000 MG/100 ML BOTTLE IV SCH ×4 (06:12→21:41)
[2017-10-09] MEDS: DORNASE ALFA 2.5 MG/2.5 ML VIAL RESP TX SCH ×2 (07:39→20:17)
[2017-10-09] MEDS: BUDESONIDE 0.25 MG/2 ML NEB RESP TX SCH ×2 (07:39→20:07)
[2017-10-09] MEDS: ARFORMOTEROL 15 MCG/2 ML NEB RESP TX SCH ×2 (07:39→20:07)
[2017-10-09] MEDS: INSULIN LISPRO 100 UNIT/ML SUBCUT SCH ×4 (08:10→20:53)
[2017-10-09] MEDS: methylPREDNISolone SOD SUC 40 MG/1 ML VIAL IV SCH ×2 (10:23→15:41)
[2017-10-09] MEDS: SKIN HEALING OINT (AQUAPHOR) 50 GM TUBE TOP SCH (10:23)
[2017-10-09] MEDS: hydrALAZINE 25 MG TABLET PO SCH ×4 (10:23→21:31)
[2017-10-09] MEDS: BACITRACIN OINT 0.9 GM PACK TOP SCH (10:23)
[2017-10-09] MEDS: GLIMEPIRIDE 2 MG TABLET PO SCH ×2 (10:23→20:52)
[2017-10-09] MEDS: ZINC OXIDE PASTE 113 GM TUBE TOP SCH (10:24)
[2017-10-09] MEDS: GENTAMICIN 0.1% CREAM 15 GM TUBE TOP SCH (10:24)
[2017-10-09] MEDS: sitaGLIPtin 100 MG TABLET PO SCH (10:24)
[2017-10-09] MEDS: ISOSORBIDE DINITRATE 20 MG TABLET PO SCH ×3 (10:24→20:53)
[2017-10-09] MEDS: INSULIN GLARGINE 100 UNIT/ML SUBCUT SCH (10:25)
[2017-10-09] MEDS: FUROSEMIDE 40 MG/4 ML VIAL IV SCH (10:25)
[2017-10-09] MEDS: PREGABALIN 75 MG CAPSULE PO SCH ×2 (10:25→20:54)
[2017-10-09] MEDS: FUROSEMIDE 40 MG TABLET PO PRN (10:26)
[2017-10-09] MEDS: fentaNYL INJ 2,500 MCG in SODIUM CHLORIDE 0.9% 450 ML IV SCH ×2 (13:10→18:32)
[2017-10-09] MEDS: cefTRIAXone 1,000 MG in SYRINGE 1 EACH IV SCH (15:40)
[2017-10-09] MEDS: ENOXAPARIN 40 MG/0.4 ML SYRINGE SUBCUT SCH (21:26)
[2017-10-10] MEDS: INSULIN REGULAR 100 UNIT/ML SUBCUT SCH ×4 (00:11→17:24)
[2017-10-10] MEDS: SODIUM CHLORIDE 0.45% 1,000 ML IV SCH (00:14)
[2017-10-10] MEDS: DEXTROSE 50% 25 GM/50 ML VIAL IV PRN ×3 (00:24→09:17)
[2017-10-10] MEDS: methylPREDNISolone SOD SUC 40 MG/1 ML VIAL IV SCH ×3 (00:25→17:36)
[2017-10-10 04:10] LABS: ABG Base Excess -1.4 MMOL/L (-2.5-2.5); ABG HCO3 23.2 MMOL/L (20-26); ABG Oxygen Saturation 98.4 % (95-100); ABG PCO2 64.3 MM HG (35-48); ABG PH 7.242 (7.35-7.45); Allen Test Positive; Pt O2 Delivery Device Ventilator
[2017-10-10] MEDS: PROPOFOL 1,000 MG/100 ML BOTTLE IV SCH ×4 (05:21→19:44)
[2017-10-10 06:02] LABS: Calcium 8.6 MG/DL (8.5-10.1); Osmolality,Calculated 295.3 MOS/KG (273-304); Potassium 5.2 MMOL/L (3.5-5.1)
[2017-10-10] MEDS: DEXTROSE 5% NACL 0.45% 1,000 ML IV SCH ×2 (06:30→17:36)
[2017-10-10] MEDS: BUDESONIDE 0.25 MG/2 ML NEB RESP TX SCH ×2 (08:05→19:56)
[2017-10-10] MEDS: ARFORMOTEROL 15 MCG/2 ML NEB RESP TX SCH ×2 (08:05→19:56)
[2017-10-10] MEDS: DORNASE ALFA 2.5 MG/2.5 ML VIAL RESP TX SCH ×2 (08:15→19:56)
[2017-10-10] MEDS: INSULIN LISPRO 100 UNIT/ML SUBCUT SCH ×4 (08:52→20:27)
[2017-10-10] MEDS: GLIMEPIRIDE 2 MG TABLET PO SCH ×2 (08:59→20:27)
[2017-10-10] MEDS: sitaGLIPtin 100 MG TABLET PO SCH (09:00)
[2017-10-10] MEDS: INSULIN GLARGINE 100 UNIT/ML SUBCUT SCH (09:00)
[2017-10-10] MEDS: FUROSEMIDE 40 MG/4 ML VIAL IV SCH (09:23)
[2017-10-10] MEDS: ISOSORBIDE DINITRATE 20 MG TABLET PO SCH ×3 (09:24→20:28)
[2017-10-10] MEDS: hydrALAZINE 25 MG TABLET PO SCH ×3 (09:24→20:27)
[2017-10-10] MEDS: BACITRACIN OINT 0.9 GM PACK TOP SCH (10:49)
[2017-10-10] MEDS: FLUCONAZOLE 40 MG/ML 35 ML/BOTTLE PO SCH (10:55)
[2017-10-10] MEDS: SKIN HEALING OINT (AQUAPHOR) 50 GM TUBE TOP SCH (10:55)
[2017-10-10] MEDS: GENTAMICIN 0.1% CREAM 15 GM TUBE TOP SCH (10:55)
[2017-10-10] MEDS: ZINC OXIDE PASTE 113 GM TUBE TOP SCH (10:55)
[2017-10-10 18:46] LABS: Apearance,Urine CLOUDY (Clear); Bacteria,Urine Moderate /HPF (Few); Bilirubin,Urine Negative (Negative); Blood, Urine Moderate mg/dL (Negative); Glucose,Urine (UA) Negative (Negative); Ketones,Urine Negative (Negative); Nitrite,Urine Negative (Negative); Protein,Urine 100 MG/DL; RBC,Urine 409 /HPF (0-4); Squamous Epithelial Cell,Urine Occasional /HPF (0-10); Urine Specific Gravity 1.018 (1.001-1.035); Urine Urobilinogen < 2.0 EU/DL (0.2-1.0); WBC,Urine 261 /HPF (0-6)
[2017-10-10 18:51] LABS: Urine Color Yellow (Yellow)
[2017-10-10] MEDS: fentaNYL INJ 2,500 MCG in SODIUM CHLORIDE 0.9% 450 ML IV SCH (20:24)
[2017-10-10] MEDS: ENOXAPARIN 40 MG/0.4 ML SYRINGE SUBCUT SCH (20:28)
[2017-10-10] MEDS: cefTRIAXone 1,000 MG in SYRINGE 1 EACH IV SCH (21:56)
[2017-10-10] MEDS: ALBUMIN 25% 25 GM in PREMIX 1 EACH IV SCH (21:56)
[2017-10-10 22:03] LABS: ABG Base Excess -3.9 MMOL/L (-2.5-2.5); ABG HCO3 21.2 MMOL/L (20-26); ABG Oxygen Saturation 95.5 % (95-100); ABG PCO2 59.9 MM HG (35-48); ABG PH 7.221 (7.35-7.45); ABG PO2 92.5 MM HG (80-95); Allen Test Positive; Pt O2 Delivery Device Ventilator
[2017-10-10 22:06] LABS: Albumin 2.4 G/DL (3.4-5.0); Bilirubin,Total 0.4 MG/DL (0.2-1.0); Calcium 7.8 MG/DL (8.5-10.1); Osmolality,Calculated 294.8 MOS/KG (273-304); Potassium 5.3 MMOL/L (3.5-5.1)
[2017-10-10] MEDS ORDERED: SODIUM POLYSTYRENE SULFATE 15 GM/60 ML BOTTLE PO STA (23:42)
[2017-10-11] MEDS: INSULIN REGULAR 100 UNIT/ML SUBCUT SCH ×5 (00:16→23:22)
[2017-10-11] MEDS: methylPREDNISolone SOD SUC 40 MG/1 ML VIAL IV SCH ×3 (00:16→17:38)
[2017-10-11 03:42] LABS: ABG Base Excess -4.1 MMOL/L (-2.5-2.5); ABG Oxygen Saturation 96.6 % (95-100); ABG PCO2 53.8 MM HG (35-48); ABG PH 7.252 (7.35-7.45); ABG PO2 99.2 MM HG (80-95); ABG TCO2 21.8 MMOL/L (23-27); Pt O2 Delivery Device Ventilator
[2017-10-11] MEDS: DEXTROSE 5% NACL 0.45% 1,000 ML IV SCH ×2 (04:44→15:08)
[2017-10-11] MEDS: PROPOFOL 1,000 MG/100 ML BOTTLE IV SCH ×6 (04:44→20:00)
[2017-10-11 05:18] LABS: Albumin 2.4 G/DL (3.4-5.0); Bilirubin,Total 0.4 MG/DL (0.2-1.0); Calcium 7.2 MG/DL (8.5-10.1); Osmolality,Calculated 301.4 MOS/KG (273-304); Potassium 5.2 MMOL/L (3.5-5.1); Total Protein 4.7 G/DL (6.4-8.3)
[2017-10-11] MEDS: ALBUMIN 25% 25 GM in PREMIX 1 EACH IV SCH ×3 (05:56→21:18)
[2017-10-11] MEDS: BUDESONIDE 0.25 MG/2 ML NEB RESP TX SCH ×2 (07:50→20:30)
[2017-10-11] MEDS: ARFORMOTEROL 15 MCG/2 ML NEB RESP TX SCH ×2 (07:50→20:30)
[2017-10-11] MEDS: INSULIN LISPRO 100 UNIT/ML SUBCUT SCH ×4 (07:57→20:13)
[2017-10-11] MEDS: DORNASE ALFA 2.5 MG/2.5 ML VIAL RESP TX SCH ×2 (08:00→20:30)
[2017-10-11] MEDS: FLUCONAZOLE 40 MG/ML 35 ML/BOTTLE PO SCH (08:16)
[2017-10-11] MEDS: GLIMEPIRIDE 2 MG TABLET PO SCH ×2 (08:17→20:13)
[2017-10-11] MEDS: ISOSORBIDE DINITRATE 20 MG TABLET PO SCH ×3 (08:17→20:13)
[2017-10-11] MEDS: sitaGLIPtin 100 MG TABLET PO SCH (08:17)
[2017-10-11] MEDS: hydrALAZINE 25 MG TABLET PO SCH ×4 (09:32→21:19)
[2017-10-11] MEDS: INSULIN GLARGINE 100 UNIT/ML SUBCUT SCH (09:33)
[2017-10-11] MEDS: GENTAMICIN 0.1% CREAM 15 GM TUBE TOP SCH (13:47)
[2017-10-11] MEDS: ZINC OXIDE PASTE 113 GM TUBE TOP SCH (13:47)
[2017-10-11] MEDS: SKIN HEALING OINT (AQUAPHOR) 50 GM TUBE TOP SCH (13:48)
[2017-10-11] MEDS: fentaNYL INJ 2,500 MCG in SODIUM CHLORIDE 0.9% 450 ML IV SCH ×2 (14:32→20:12)
[2017-10-11] MEDS: POLYVINYL ALCOHOL 1.4% OPH SOLN 15 ML BOTTLE BOTH EYES SCH ×5 (19:45→23:13)
[2017-10-11] MEDS: ENOXAPARIN 40 MG/0.4 ML SYRINGE SUBCUT SCH (20:14)
[2017-10-11] MEDS: MINERAL OIL/PETROLATUM OPH OINT 3.5 GM TUBE BOTH EYES SCH (20:15)
[2017-10-11] MEDS: cefTRIAXone 1,000 MG in SYRINGE 1 EACH IV SCH (21:19)
[2017-10-12] MEDS: methylPREDNISolone SOD SUC 40 MG/1 ML VIAL IV SCH ×3 (00:01→17:16)
[2017-10-12] MEDS: PROPOFOL 1,000 MG/100 ML BOTTLE IV SCH ×6 (00:02→20:40)
[2017-10-12] MEDS: POLYVINYL ALCOHOL 1.4% OPH SOLN 15 ML BOTTLE BOTH EYES SCH ×16 (00:02→23:11)
[2017-10-12] MEDS: fentaNYL INJ 2,500 MCG in SODIUM CHLORIDE 0.9% 450 ML IV SCH ×3 (01:33→18:10)
[2017-10-12] MEDS: DEXTROSE 5% NACL 0.45% 1,000 ML IV SCH ×5 (03:40→23:08)
[2017-10-12 04:10] LABS: ABG Base Excess -3.1 MMOL/L (-2.5-2.5); ABG HCO3 21.7 MMOL/L (20-26); ABG Oxygen Saturation 92.3 % (95-100); ABG PCO2 53.9 MM HG (35-48); ABG PH 7.256 (7.35-7.45); ABG PO2 72.6 MM HG (80-95); ABG TCO2 23.3 MMOL/L (23-27)
[2017-10-12] MEDS: INSULIN REGULAR 100 UNIT/ML SUBCUT SCH ×3 (05:31→17:23)
[2017-10-12 06:11] LABS: Basophils % 0.1 % (0.0-0.8); Eosinophils % 0.1 % (0.00-10.9); Hematocrit 24.6 VOL% (35.7-47.0); Immature Granulocytes % 0.7 %; Immature Granulocytes Absolute 0.09 #; Lymphocytes # 0.6 10*3/uL (1.4-4.0); Lymphocytes % 4.8 % (21.3-54.2); Mean Corpuscular HGB Conc 32.5 GM/DL (32-36); Mean Corpuscular Hemoglobin 29 PG (27-34); Mean Corpuscular Volume 90.4 FL (87-102); Mean Platelet Volume 13.7 FL (9.6-12.0); Monocytes # 0.9 10*3/uL (0.11-0.8); Neutrophils % 87.3 % (38.7-73.9); Platelet Count 101 T/CUMM (130-400); Red Blood Count 2.72 MC/CUMM (3.8-5.5); Red Cell Distribution Width 13.7 % (9.3-17.3); White Blood Count 12.6 T/CUMM (4-12)
[2017-10-12] MEDS: ALBUMIN 25% 25 GM in PREMIX 1 EACH IV SCH ×3 (06:32→23:09)
[2017-10-12 06:34] LABS: Calcium 7.2 MG/DL (8.5-10.1); Osmolality,Calculated 296.7 MOS/KG (273-304); Potassium 4.6 MMOL/L (3.5-5.1)
[2017-10-12 06:44] LABS: Band Neutrophils 4 % (0-10); Lymphocytes 8 % (20-55); Macrocytosis 1+; Ovalocytes Slight; Platelet Estimate Decreased; Poikilocytosis Slight; Segmented Neutrophils 86 % (50-85); Total Cells Counted 100
[2017-10-12] MEDS: ARFORMOTEROL 15 MCG/2 ML NEB RESP TX SCH ×2 (07:50→20:03)
[2017-10-12] MEDS: BUDESONIDE 0.25 MG/2 ML NEB RESP TX SCH ×2 (07:50→20:03)
[2017-10-12] MEDS: DORNASE ALFA 2.5 MG/2.5 ML VIAL RESP TX SCH ×2 (08:03→20:03)
[2017-10-12] MEDS: INSULIN LISPRO 100 UNIT/ML SUBCUT SCH ×4 (08:52→21:53)
[2017-10-12] MEDS: GLIMEPIRIDE 2 MG TABLET PO SCH ×2 (10:33→21:48)
[2017-10-12] MEDS: ZINC OXIDE PASTE 113 GM TUBE TOP SCH (10:34)
[2017-10-12] MEDS: FLUCONAZOLE 40 MG/ML 35 ML/BOTTLE PO SCH (10:34)
[2017-10-12] MEDS: hydrALAZINE 25 MG TABLET PO SCH ×3 (10:34→21:48)
[2017-10-12] MEDS: SKIN HEALING OINT (AQUAPHOR) 50 GM TUBE TOP SCH (10:34)
[2017-10-12] MEDS: sitaGLIPtin 100 MG TABLET PO SCH (10:35)
[2017-10-12] MEDS: GENTAMICIN 0.1% CREAM 15 GM TUBE TOP SCH (10:35)
[2017-10-12] MEDS: ISOSORBIDE DINITRATE 20 MG TABLET PO SCH ×3 (10:35→21:47)
[2017-10-12] MEDS: MINERAL OIL/PETROLATUM OPH OINT 3.5 GM TUBE BOTH EYES SCH ×3 (10:37→21:52)
[2017-10-12] MEDS: INSULIN GLARGINE 100 UNIT/ML SUBCUT SCH (10:37)
[2017-10-12] MEDS: hydrALAZINE 20 MG/1 ML VIAL IV PRN (17:18)
[2017-10-12] MEDS ORDERED: FUROSEMIDE 20 MG/2 ML VIAL IV ONE (19:01)
[2017-10-12] MEDS ORDERED: SODIUM CHLORIDE 0.9% 1,000 ML IV PRN (19:04)
[2017-10-12] MEDS ORDERED: VANCOMYCIN INJ 2,000 MG in SODIUM CHLORIDE 0.9% 500 ML IV PRN (19:30)
[2017-10-12] MEDS: CLINDAMYCIN INJ 600 MG in PREMIX 1 EACH IV SCH (20:29)
[2017-10-12] MEDS: FLUCONAZOLE INJ 100 MG in IV BAG 1 EACH IV SCH (21:37)
[2017-10-12] MEDS: cefTRIAXone 1,000 MG in SYRINGE 1 EACH IV SCH (21:46)
[2017-10-12] MEDS: ENOXAPARIN 40 MG/0.4 ML SYRINGE SUBCUT SCH (21:47)
[2017-10-12] MEDS ORDERED: VANCOMYCIN INJ 2,000 MG in SODIUM CHLORIDE 0.9% 500 ML IV ONE (22:00)
[2017-10-13] MEDS: POLYVINYL ALCOHOL 1.4% OPH SOLN 15 ML BOTTLE BOTH EYES SCH ×16 (00:29→23:15)
[2017-10-13] MEDS: methylPREDNISolone SOD SUC 40 MG/1 ML VIAL IV SCH ×3 (01:01→18:40)
[2017-10-13] MEDS: hydrALAZINE 20 MG/1 ML VIAL IV PRN ×2 (01:20→10:12)
[2017-10-13] MEDS: INSULIN REGULAR 100 UNIT/ML SUBCUT SCH ×4 (01:28→18:40)
[2017-10-13] MEDS: PROPOFOL 1,000 MG/100 ML BOTTLE IV SCH ×5 (01:40→23:51)
[2017-10-13] MEDS: fentaNYL INJ 2,500 MCG in SODIUM CHLORIDE 0.9% 450 ML IV SCH ×3 (03:05→23:30)
[2017-10-13 04:10] LABS: ABG Base Excess -2.5 MMOL/L (-2.5-2.5); ABG HCO3 22.3 MMOL/L (20-26); ABG Oxygen Saturation 98.5 % (95-100); ABG PCO2 36.5 MM HG (35-48); ABG PH 7.389 (7.35-7.45); Allen Test Positive; Pt O2 Delivery Device Ventilator
[2017-10-13] MEDS: CLINDAMYCIN INJ 600 MG in PREMIX 1 EACH IV SCH ×3 (04:55→21:26)
[2017-10-13 06:36] LABS: Basophils % 0.1 % (0.0-0.8); Hematocrit 26.7 VOL% (35.7-47.0); Hemoglobin 8.9 GM/DL (12.0-16.0); Immature Granulocytes % 1.2 %; Immature Granulocytes Absolute 0.14 #; Lymphocytes # 0.3 10*3/uL (1.4-4.0); Lymphocytes % 2.7 % (21.3-54.2); Mean Corpuscular HGB Conc 33.3 GM/DL (32-36); Mean Corpuscular Hemoglobin 30 PG (27-34); Mean Corpuscular Volume 88.7 FL (87-102); Mean Platelet Volume 14.6 FL (9.6-12.0); Monocytes # 0.4 10*3/uL (0.11-0.8); Monocytes % 3.6 % (1.7-12.7); Neutrophils % 92.4 % (38.7-73.9); Platelet Count 100 T/CUMM (130-400); Red Blood Count 3.01 MC/CUMM (3.8-5.5); White Blood Count 11.9 T/CUMM (4-12)
[2017-10-13] MEDS: ALBUMIN 25% 25 GM in PREMIX 1 EACH IV SCH ×3 (06:45→21:30)
[2017-10-13 07:05] LABS: Albumin 3.5 G/DL (3.4-5.0); Calcium 8.2 MG/DL (8.5-10.1); Osmolality,Calculated 303.8 MOS/KG (273-304); Potassium 5.2 MMOL/L (3.5-5.1); Total Protein 5.9 G/DL (6.4-8.3)
[2017-10-13 07:07] LABS: Band Neutrophils 1 % (0-10); Lymphocytes 4 % (20-55); Segmented Neutrophils 91 % (50-85); Total Cells Counted 100
[2017-10-13 07:08] LABS: Hypochromasia 1+; Platelet Estimate Decreased
[2017-10-13 07:09] LABS: Ovalocytes Slight
[2017-10-13 07:17] LABS: Burr Cells Slight; Elliptocytes Few
[2017-10-13 07:18] LABS: Microcytosis Slight
[2017-10-13] MEDS: BUDESONIDE 0.25 MG/2 ML NEB RESP TX SCH ×2 (07:46→19:59)
[2017-10-13] MEDS: ARFORMOTEROL 15 MCG/2 ML NEB RESP TX SCH ×2 (07:46→19:59)
[2017-10-13] MEDS: DORNASE ALFA 2.5 MG/2.5 ML VIAL RESP TX SCH ×2 (07:55→19:59)
[2017-10-13] MEDS ORDERED: METOCLOPRAMIDE 10 MG/2 ML VIAL IV ONE (08:28)
[2017-10-13] MEDS ORDERED: FUROSEMIDE 20 MG/2 ML VIAL IV SCH (09:00)
[2017-10-13] MEDS: INSULIN LISPRO 100 UNIT/ML SUBCUT SCH ×3 (10:09→18:40)
[2017-10-13] MEDS: DEXTROSE 5% NACL 0.45% 1,000 ML IV SCH ×2 (10:10→14:59)
[2017-10-13] MEDS: ZINC OXIDE PASTE 113 GM TUBE TOP SCH (10:10)
[2017-10-13] MEDS: SKIN HEALING OINT (AQUAPHOR) 50 GM TUBE TOP SCH (10:10)
[2017-10-13] MEDS: GLIMEPIRIDE 2 MG TABLET PO SCH ×2 (10:10→22:04)
[2017-10-13] MEDS: hydrALAZINE 25 MG TABLET PO SCH ×3 (10:10→22:04)
[2017-10-13] MEDS: sitaGLIPtin 100 MG TABLET PO SCH (10:11)
[2017-10-13] MEDS: ISOSORBIDE DINITRATE 20 MG TABLET PO SCH ×3 (10:11→22:04)
[2017-10-13] MEDS: GENTAMICIN 0.1% CREAM 15 GM TUBE TOP SCH (10:11)
[2017-10-13] MEDS: MINERAL OIL/PETROLATUM OPH OINT 3.5 GM TUBE BOTH EYES SCH ×3 (10:11→22:29)
[2017-10-13] MEDS: INSULIN GLARGINE 100 UNIT/ML SUBCUT SCH (10:11)
[2017-10-13] MEDS ORDERED: MULTIVITAMIN INJ 10 ML, TRACE ELEMENTS (5) 1 ML in AMINO ACIDS/DEXT/LYTES 5-15% 2,000 ML IV SCH (17:00)
[2017-10-13] MEDS ORDERED: DEXTROSE 10% 1,000 ML IV PRN (17:00)
[2017-10-13] MEDS: cefTRIAXone 1,000 MG in SYRINGE 1 EACH IV SCH (22:03)
[2017-10-14] MEDS: DEXTROSE 5% NACL 0.45% 1,000 ML IV SCH (01:51)
[2017-10-14] MEDS: INSULIN REGULAR 100 UNIT/ML SUBCUT SCH ×4 (02:16→18:23)
[2017-10-14] MEDS: methylPREDNISolone SOD SUC 40 MG/1 ML VIAL IV SCH ×4 (02:16→21:04)
[2017-10-14] MEDS: POLYVINYL ALCOHOL 1.4% OPH SOLN 15 ML BOTTLE BOTH EYES SCH ×23 (02:17→23:10)
[2017-10-14] MEDS ORDERED: FUROSEMIDE 40 MG/4 ML VIAL IM ONE (03:16)
[2017-10-14] MEDS ORDERED: FUROSEMIDE 40 MG/4 ML VIAL IV ONE (03:30)
[2017-10-14 04:34] LABS: Allen Test Positive; Pt O2 Delivery Device Ventilator
[2017-10-14 04:35] LABS: ABG Base Excess -8.3 MMOL/L (-2.5-2.5); ABG HCO3 22.1 MMOL/L (20-26); ABG Oxygen Saturation 98.8 % (95-100); ABG PCO2 74.9 MM HG (35-48); ABG PO2 396.7 MM HG (80-95); ABG TCO2 24.4 MMOL/L (23-27)
[2017-10-14 04:40] LABS: ABG PH 7.087 (7.35-7.45)
[2017-10-14] MEDS ORDERED: SODIUM BICARBONATE 50 MEQ/50 ML SYRINGE IV ONE (05:17)
[2017-10-14 05:33] LABS: Basophils % 0.1 % (0.0-0.8); Eosinophils % 0.1 % (0.00-10.9); Hematocrit 30.3 VOL% (35.7-47.0); Immature Granulocytes % 1.6 %; Immature Granulocytes Absolute 0.22 #; Lymphocytes # 0.4 10*3/uL (1.4-4.0); Lymphocytes % 2.6 % (21.3-54.2); Mean Corpuscular HGB Conc 29.7 GM/DL (32-36); Mean Corpuscular Hemoglobin 29 PG (27-34); Mean Corpuscular Volume 96.2 FL (87-102); Mean Platelet Volume 13.3 FL (9.6-12.0); Monocytes # 0.9 10*3/uL (0.11-0.8); Monocytes % 6.6 % (1.7-12.7); Neutrophils # 12.5 10*3/uL (1.4-7.4); Platelet Count 137 T/CUMM (130-400); Red Blood Count 3.15 MC/CUMM (3.8-5.5); Red Cell Distribution Width 14.4 % (9.3-17.3)
[2017-10-14] MEDS: ALBUMIN 25% 25 GM in PREMIX 1 EACH IV SCH (05:40)
[2017-10-14] MEDS: CLINDAMYCIN INJ 600 MG in PREMIX 1 EACH IV SCH (05:40)
[2017-10-14] MEDS ORDERED: FUROSEMIDE 20 MG/2 ML VIAL IV SCH (05:46)
[2017-10-14 05:54] LABS: INR 0.9; PT Patient Result 9.8 SECS; Partial Thromboplastin Time 26.8 SECS (0-40)
[2017-10-14 05:56] LABS: Calcium 8.6 MG/DL (8.5-10.1); Osmolality,Calculated 310.1 MOS/KG (273-304); Potassium 5.5 MMOL/L (3.5-5.1)
[2017-10-14 05:58] LABS: Burr Cells Slight; Elliptocytes Few; Giant Platelets Few; Hypochromasia 1+; Lymphocytes 4 % (20-55); Microcytosis Slight; Platelet Estimate Normal; Segmented Neutrophils 85 % (50-85); Total Cells Counted 100
[2017-10-14] MEDS: INSULIN LISPRO 100 UNIT/ML SUBCUT SCH ×4 (06:29→18:23)
[2017-10-14] MEDS ORDERED: SODIUM CHLORIDE 0.45% 1,000 ML IV SCH (06:30)
[2017-10-14] MEDS ORDERED: INSULIN GLARGINE 100 UNIT/ML SUBCUT SCH (06:30)
[2017-10-14] MEDS ORDERED: LIDOCAINE 2%/EPI 20 ML VIAL ONE (06:32)
[2017-10-14 06:33] LABS: ABG Base Excess -6.1 MMOL/L (-2.5-2.5); ABG HCO3 19.4 MMOL/L (20-26); ABG Oxygen Saturation 97.2 % (95-100); ABG PCO2 65.3 MM HG (35-48); ABG TCO2 22.3 MMOL/L (23-27); Allen Test Positive; Pt O2 Delivery Device Ventilator
[2017-10-14] MEDS: PROPOFOL 1,000 MG/100 ML BOTTLE IV SCH ×5 (06:38→22:31)
[2017-10-14 06:39] LABS: ABG PH 7.161 (7.35-7.45)
[2017-10-14 08:27] LABS: Bilirubin,Direct 0.23 MG/DL (0.0-0.20); Bilirubin,Total 1.4 MG/DL (0.2-1.0)
[2017-10-14 08:28] LABS: Albumin 4.3 G/DL (3.4-5.0); Bilirubin,Indirect 1.2 MG/DL (0.0-1.0); Total Protein 6.7 G/DL (6.4-8.3)
[2017-10-14] MEDS: INSULIN GLARGINE 100 UNIT/ML SUBCUT SCH ×2 (08:54→21:27)
[2017-10-14] MEDS: SKIN HEALING OINT (AQUAPHOR) 50 GM TUBE TOP SCH (08:55)
[2017-10-14] MEDS: GENTAMICIN 0.1% CREAM 15 GM TUBE TOP SCH (08:55)
[2017-10-14] MEDS: sitaGLIPtin 100 MG TABLET PO SCH (08:55)
[2017-10-14] MEDS: GLIMEPIRIDE 2 MG TABLET PO SCH ×2 (08:55→21:04)
[2017-10-14] MEDS: MINERAL OIL/PETROLATUM OPH OINT 3.5 GM TUBE BOTH EYES SCH ×3 (08:55→20:15)
[2017-10-14] MEDS: ISOSORBIDE DINITRATE 20 MG TABLET PO SCH ×3 (08:55→21:03)
[2017-10-14] MEDS: ZINC OXIDE PASTE 113 GM TUBE TOP SCH (08:55)
[2017-10-14 09:10] LABS: Pt O2 Delivery Device Ventilator
[2017-10-14 09:11] LABS: ABG Base Excess -6.9 MMOL/L (-2.5-2.5); ABG HCO3 18.8 MMOL/L (20-26); ABG PCO2 54.1 MM HG (35-48); ABG TCO2 20.1 MMOL/L (23-27)
[2017-10-14] MEDS: ARFORMOTEROL 15 MCG/2 ML NEB RESP TX SCH ×2 (09:11→21:55)
[2017-10-14] MEDS: BUDESONIDE 0.25 MG/2 ML NEB RESP TX SCH ×2 (09:11→21:55)
[2017-10-14 09:15] LABS: ABG PH 7.205 (7.35-7.45)
[2017-10-14] MEDS: DORNASE ALFA 2.5 MG/2.5 ML VIAL RESP TX SCH ×2 (09:21→21:55)
[2017-10-14] MEDS ORDERED: SODIUM POLYSTYRENE SULFATE 15 GM/60 ML BOTTLE PO STA (10:57)
[2017-10-14] MEDS: hydrALAZINE 25 MG TABLET PO SCH ×3 (11:01→21:04)
[2017-10-14] MEDS ORDERED: SODIUM CHLORIDE 23.4% CONC INJ 38.5 MEQ, SODIUM BICARB INJ 100 MEQ in STERILE WATER INJ... IV SCH (12:00)
[2017-10-14] MEDS: SODIUM BICARB INJ 50 MEQ in SODIUM CHLORIDE 0.45% 1,000 ML IV SCH (13:41)
[2017-10-14] MEDS: TOBRAMYCIN 0.3% OPH SOLN 5 ML BOTTLE BOTH EYES SCH (15:33)
[2017-10-14] MEDS ORDERED: DEXTROSE IV SCH (17:00)
[2017-10-14] MEDS ORDERED: MULTIVITAMIN IV SCH (17:00)
[2017-10-14] MEDS ORDERED: TRACE ELEMENTS IV SCH (17:00)
[2017-10-14] MEDS ORDERED: MULTIVITAMIN INJ 10 ML, TRACE ELEMENTS (5) 1 ML in AMINO ACIDS/DEXT/LYTES 5-15% 2,000 ML IV SCH (17:00)
[2017-10-14] MEDS ORDERED: [UNRECOGNIZED DRUG - OTHER] IV SCH (17:00)
[2017-10-14 17:32] LABS: Calcium 8.2 MG/DL (8.5-10.1); Potassium 5.6 MMOL/L (3.5-5.1)
[2017-10-14] MEDS: DEXTROSE 70% IV SCH (18:10)
[2017-10-14] MEDS: [UNRECOGNIZED DRUG - OTHER] IV SCH (18:10)
[2017-10-14] MEDS: AMINO ACIDS 10% IV SCH (18:10)
[2017-10-14] MEDS ORDERED: SODIUM POLYSTYRENE SULFATE 15 GM/60 ML BOTTLE RECTAL ONE (18:25)
[2017-10-14] MEDS: fentaNYL INJ 2,500 MCG in SODIUM CHLORIDE 0.9% 450 ML IV SCH (20:45)
[2017-10-14] MEDS: FLUCONAZOLE INJ 100 MG in IV BAG 1 EACH IV SCH (21:10)
[2017-10-14] MEDS: ENOXAPARIN 40 MG/0.4 ML SYRINGE SUBCUT SCH (21:27)
[2017-10-14] MEDS: ALBUTEROL/IPRATROPIUM 3 ML NEB RESP TX PRN (21:55)
[2017-10-14] MEDS: hydrALAZINE 20 MG/1 ML VIAL IV PRN (23:18)
[2017-10-15] MEDS: POLYVINYL ALCOHOL 1.4% OPH SOLN 15 ML BOTTLE BOTH EYES SCH ×23 (00:36→23:00)
[2017-10-15] MEDS: INSULIN LISPRO 100 UNIT/ML SUBCUT SCH ×4 (01:14→18:15)
[2017-10-15] MEDS: INSULIN REGULAR 100 UNIT/ML SUBCUT SCH ×4 (01:14→18:15)
[2017-10-15] MEDS: TOBRAMYCIN 0.3% OPH SOLN 5 ML BOTTLE BOTH EYES SCH ×2 (01:15→14:14)
[2017-10-15] MEDS: PROPOFOL 1,000 MG/100 ML BOTTLE IV SCH ×5 (01:46→14:14)
[2017-10-15 03:15] LABS: ABG Base Excess -2.2 MMOL/L (-2.5-2.5); ABG HCO3 20.1 MMOL/L (20-26); ABG Oxygen Saturation 99.3 % (95-100); ABG PCO2 25.9 MM HG (35-48); ABG PH 7.508 (7.35-7.45); ABG PO2 455.5 MM HG (80-95); ABG TCO2 20.9 MMOL/L (23-27); Allen Test Positive; Pt O2 Delivery Device Ventilator
[2017-10-15] MEDS: methylPREDNISolone SOD SUC 40 MG/1 ML VIAL IV SCH ×3 (05:30→21:21)
[2017-10-15] MEDS: SODIUM BICARB INJ 50 MEQ in SODIUM CHLORIDE 0.45% 1,000 ML IV SCH (05:40)
[2017-10-15 05:45] LABS: Basophils % 0.1 % (0.0-0.8); Eosinophils % 0.1 % (0.00-10.9); Hematocrit 24.2 VOL% (35.7-47.0); Hemoglobin 8.1 GM/DL (12.0-16.0); Immature Granulocytes % 1.3 %; Immature Granulocytes Absolute 0.11 #; Lymphocytes # 0.3 10*3/uL (1.4-4.0); Mean Corpuscular HGB Conc 33.5 GM/DL (32-36); Mean Corpuscular Hemoglobin 29 PG (27-34); Mean Corpuscular Volume 86.4 FL (87-102); Mean Platelet Volume 13.2 FL (9.6-12.0); Monocytes # 0.7 10*3/uL (0.11-0.8); Monocytes % 7.6 % (1.7-12.7); Neutrophils # 7.5 10*3/uL (1.4-7.4); Neutrophils % 86.9 % (38.7-73.9); Platelet Count 106 T/CUMM (130-400); Red Cell Distribution Width 13.7 % (9.3-17.3); White Blood Count 8.6 T/CUMM (4-12)
[2017-10-15] MEDS: hydrALAZINE 20 MG/1 ML VIAL IV PRN (06:30)
[2017-10-15 06:35] LABS: Albumin 3.5 G/DL (3.4-5.0); Bilirubin,Total 0.7 MG/DL (0.2-1.0); Osmolality,Calculated 314.7 MOS/KG (273-304); Potassium 4.8 MMOL/L (3.5-5.1); Total Protein 5.6 G/DL (6.4-8.3)
[2017-10-15] MEDS: BUDESONIDE 0.25 MG/2 ML NEB RESP TX SCH ×2 (07:14→19:39)
[2017-10-15] MEDS: ARFORMOTEROL 15 MCG/2 ML NEB RESP TX SCH ×2 (07:14→19:36)
[2017-10-15] MEDS: DORNASE ALFA 2.5 MG/2.5 ML VIAL RESP TX SCH (07:15)
[2017-10-15 08:25] LABS: Hematocrit 24.4 VOL% (35.7-47.0); Hemoglobin 8.1 GM/DL (12.0-16.0)
[2017-10-15] MEDS: MINERAL OIL/PETROLATUM OPH OINT 3.5 GM TUBE BOTH EYES SCH ×3 (08:50→21:23)
[2017-10-15] MEDS: ISOSORBIDE DINITRATE 20 MG TABLET PO SCH ×3 (08:53→21:22)
[2017-10-15] MEDS: INSULIN GLARGINE 100 UNIT/ML SUBCUT SCH ×2 (08:53→21:20)
[2017-10-15] MEDS: hydrALAZINE 25 MG TABLET PO SCH ×3 (08:53→21:22)
[2017-10-15] MEDS: GLIMEPIRIDE 2 MG TABLET PO SCH ×2 (08:54→21:22)
[2017-10-15] MEDS: sitaGLIPtin 100 MG TABLET PO SCH (09:03)
[2017-10-15] MEDS: DEXTROSE 70% IV SCH ×2 (09:12→22:48)
[2017-10-15] MEDS: AMINO ACIDS 10% IV SCH ×2 (09:12→22:48)
[2017-10-15] MEDS: [UNRECOGNIZED DRUG - OTHER] IV SCH ×2 (09:12→22:48)
[2017-10-15 09:29] LABS: ABG Base Excess -4.5 MMOL/L (-2.5-2.5); ABG Oxygen Saturation 97.6 % (95-100); ABG PCO2 40.7 MM HG (35-48); ABG PH 7.331 (7.35-7.45); ABG PO2 128.3 MM HG (80-95); ABG TCO2 22.3 MMOL/L (23-27); Pt O2 Delivery Device Ventilator
[2017-10-15 09:56] LABS: Lymphocytes 5 % (20-55); Ovalocytes Slight; Platelet Estimate Adequate; Segmented Neutrophils 90 % (50-85); Total Cells Counted 100
[2017-10-15] MEDS: METOCLOPRAMIDE 10 MG/2 ML VIAL IV SCH ×2 (13:18→18:15)
[2017-10-15] MEDS ORDERED: SODIUM CHLORIDE 0.9% 1,000 ML IV PRN ×2 (13:27→14:02)
[2017-10-15] MEDS: GENTAMICIN 0.1% CREAM 15 GM TUBE TOP SCH (14:14)
[2017-10-15] MEDS: SKIN HEALING OINT (AQUAPHOR) 50 GM TUBE TOP SCH (14:15)
[2017-10-15] MEDS: ZINC OXIDE PASTE 113 GM TUBE TOP SCH (14:15)
[2017-10-15] MEDS: ENOXAPARIN 40 MG/0.4 ML SYRINGE SUBCUT SCH (21:20)
[2017-10-15] MEDS: ALUMINUM/MAGNES/SIMETH MAX STR 30 ML UDCUP PO SCH (21:22)
[2017-10-16] MEDS: POLYVINYL ALCOHOL 1.4% OPH SOLN 15 ML BOTTLE BOTH EYES SCH ×24 (00:30→23:16)
[2017-10-16] MEDS: METOCLOPRAMIDE 10 MG/2 ML VIAL IV SCH ×5 (00:36→23:28)
[2017-10-16] MEDS: INSULIN LISPRO 100 UNIT/ML SUBCUT SCH ×5 (00:44→23:09)
[2017-10-16] MEDS: INSULIN REGULAR 100 UNIT/ML SUBCUT SCH ×5 (00:45→23:10)
[2017-10-16] MEDS: SODIUM BICARB INJ 50 MEQ in SODIUM CHLORIDE 0.45% 1,000 ML IV SCH ×3 (00:46→22:30)
[2017-10-16] MEDS: hydrALAZINE 20 MG/1 ML VIAL IV PRN ×2 (00:47→18:10)
[2017-10-16] MEDS ORDERED: FUROSEMIDE 40 MG/4 ML VIAL IV ONE ×2 (01:10→09:23)
[2017-10-16] MEDS: fentaNYL INJ 2,500 MCG in SODIUM CHLORIDE 0.9% 450 ML IV SCH ×2 (01:21→21:13)
[2017-10-16] MEDS: TOBRAMYCIN 0.3% OPH SOLN 5 ML BOTTLE BOTH EYES SCH ×2 (01:41→13:38)
[2017-10-16 01:49] LABS: ABG Base Excess -8.8 MMOL/L (-2.5-2.5); ABG HCO3 19.7 MMOL/L (20-26); ABG Oxygen Saturation 90.9 % (95-100); ABG PCO2 52.3 MM HG (35-48); ABG PO2 73.1 MM HG (80-95); ABG TCO2 21.3 MMOL/L (23-27)
[2017-10-16 01:53] LABS: ABG PH 7.193 (7.35-7.45)
[2017-10-16 02:00] LABS: Basophils % 0.1 % (0.0-0.8); Hematocrit 31.9 VOL% (35.7-47.0); Immature Granulocytes % 0.9 %; Immature Granulocytes Absolute 0.13 #; Lymphocytes # 0.3 10*3/uL (1.4-4.0); Mean Corpuscular HGB Conc 31.3 GM/DL (32-36); Mean Corpuscular Hemoglobin 29 PG (27-34); Mean Corpuscular Volume 92.2 FL (87-102); Mean Platelet Volume 13.2 FL (9.6-12.0); Monocytes % 6.8 % (1.7-12.7); Neutrophils # 13.2 10*3/uL (1.4-7.4); Neutrophils % 90.2 % (38.7-73.9); Platelet Count 123 T/CUMM (130-400); Red Blood Count 3.46 MC/CUMM (3.8-5.5); Red Cell Distribution Width 14.4 % (9.3-17.3); White Blood Count 14.6 T/CUMM (4-12)
[2017-10-16 02:23] LABS: Calcium 7.9 MG/DL (8.5-10.1)
[2017-10-16 04:08] LABS: Band Neutrophils 8 % (0-10); Lymphocytes 3 % (20-55); Segmented Neutrophils 85 % (50-85); Total Cells Counted 100
[2017-10-16 04:09] LABS: Anisocytosis 1+; Poikilocytosis 1+
[2017-10-16 06:09] LABS: ABG Base Excess -6.4 MMOL/L (-2.5-2.5); ABG HCO3 20.6 MMOL/L (20-26); ABG Oxygen Saturation 96.7 % (95-100); ABG PCO2 47.4 MM HG (35-48); ABG PH 7.255 (7.35-7.45); ABG PO2 101.2 MM HG (80-95)
[2017-10-16] MEDS: methylPREDNISolone SOD SUC 40 MG/1 ML VIAL IV SCH ×3 (06:30→22:45)
[2017-10-16] MEDS: DORNASE ALFA 2.5 MG/2.5 ML VIAL RESP TX SCH ×2 (07:23→20:40)
[2017-10-16] MEDS: ARFORMOTEROL 15 MCG/2 ML NEB RESP TX SCH ×2 (07:23→20:39)
[2017-10-16] MEDS: BUDESONIDE 0.25 MG/2 ML NEB RESP TX SCH ×2 (07:23→20:39)
[2017-10-16] MEDS: PANTOPRAZOLE 40 MG VIAL IV SCH (08:31)
[2017-10-16] MEDS: INSULIN GLARGINE 100 UNIT/ML SUBCUT SCH ×2 (08:31→23:05)
[2017-10-16] MEDS: ISOSORBIDE DINITRATE 20 MG TABLET PO SCH ×3 (08:33→22:53)
[2017-10-16] MEDS: hydrALAZINE 25 MG TABLET PO SCH ×3 (08:39→22:53)
[2017-10-16] MEDS: PROPOFOL 1,000 MG/100 ML BOTTLE IV SCH ×2 (08:40→16:30)
[2017-10-16] MEDS: sitaGLIPtin 100 MG TABLET PO SCH (08:41)
[2017-10-16] MEDS: ALUMINUM/MAGNES/SIMETH MAX STR 30 ML UDCUP PO SCH ×2 (08:41→22:52)
[2017-10-16] MEDS: GLIMEPIRIDE 2 MG TABLET PO SCH ×2 (08:42→22:53)
[2017-10-16] MEDS: MINERAL OIL/PETROLATUM OPH OINT 3.5 GM TUBE BOTH EYES SCH ×3 (08:43→21:00)
[2017-10-16] MEDS: DEXTROSE 70% IV SCH ×2 (08:56→23:39)
[2017-10-16] MEDS: AMINO ACIDS 10% IV SCH ×2 (08:56→23:39)
[2017-10-16] MEDS: [UNRECOGNIZED DRUG - OTHER] IV SCH ×2 (08:56→23:39)
[2017-10-16] MEDS ORDERED: SODIUM CHLORIDE 0.45% 500 ML IV ONE (09:01)
[2017-10-16] MEDS: GENTAMICIN 0.1% CREAM 15 GM TUBE TOP SCH (12:32)
[2017-10-16] MEDS: ZINC OXIDE PASTE 113 GM TUBE TOP SCH (12:32)
[2017-10-16] MEDS: SKIN HEALING OINT (AQUAPHOR) 50 GM TUBE TOP SCH (12:32)
[2017-10-16] MEDS: cefTRIAXone 1,000 MG in SYRINGE 1 EACH IV SCH (12:34)
[2017-10-16] MEDS: ENOXAPARIN 30 MG/0.3 ML SYRINGE SUBCUT SCH (22:46)
[2017-10-16] MEDS: FLUCONAZOLE INJ 100 MG in IV BAG 1 EACH IV SCH (23:36)
[2017-10-17] MEDS: POLYVINYL ALCOHOL 1.4% OPH SOLN 15 ML BOTTLE BOTH EYES SCH ×22 (00:15→22:40)
[2017-10-17] MEDS: TOBRAMYCIN 0.3% OPH SOLN 5 ML BOTTLE BOTH EYES SCH ×2 (01:30→13:46)
[2017-10-17 04:28] LABS: ABG HCO3 18.7 MMOL/L (20-26); ABG Oxygen Saturation 97.1 % (95-100); ABG PCO2 46.3 MM HG (35-48); ABG PH 7.247 (7.35-7.45); ABG TCO2 18.8 MMOL/L (23-27); Allen Test Positive; Pt O2 Delivery Device Ventilator
[2017-10-17 05:54] LABS: Calcium 8.2 MG/DL (8.5-10.1); Osmolality,Calculated 317.1 MOS/KG (273-304); Potassium 4.7 MMOL/L (3.5-5.1); Prealbumin 26.8 MG/DL (20-40)
[2017-10-17 06:20] LABS: Basophils % 0.1 % (0.0-0.8); Eosinophils % 0.2 % (0.00-10.9); Hematocrit 30.2 VOL% (35.7-47.0); Hemoglobin 9.9 GM/DL (12.0-16.0); Immature Granulocytes % 1.1 %; Immature Granulocytes Absolute 0.15 #; Lymphocytes # 0.4 10*3/uL (1.4-4.0); Lymphocytes % 2.8 % (21.3-54.2); Mean Corpuscular HGB Conc 32.8 GM/DL (32-36); Mean Corpuscular Hemoglobin 30 PG (27-34); Mean Corpuscular Volume 90.1 FL (87-102); Mean Platelet Volume 13.5 FL (9.6-12.0); Neutrophils % 88.8 % (38.7-73.9); Platelet Count 101 T/CUMM (130-400); Red Blood Count 3.35 MC/CUMM (3.8-5.5); Red Cell Distribution Width 14.1 % (9.3-17.3); White Blood Count 13.6 T/CUMM (4-12)
[2017-10-17] MEDS: INSULIN LISPRO 100 UNIT/ML SUBCUT SCH ×3 (06:32→18:25)
[2017-10-17] MEDS: methylPREDNISolone SOD SUC 40 MG/1 ML VIAL IV SCH ×3 (06:32→21:15)
[2017-10-17] MEDS: METOCLOPRAMIDE 10 MG/2 ML VIAL IV SCH ×3 (06:32→18:25)
[2017-10-17] MEDS: INSULIN REGULAR 100 UNIT/ML SUBCUT SCH ×3 (06:33→18:26)
[2017-10-17 06:57] LABS: Hypochromasia 1+; Lymphocytes 3 % (20-55); Ovalocytes Slight; Platelet Estimate Decreased; Segmented Neutrophils 89 % (50-85); Total Cells Counted 100
[2017-10-17 06:58] LABS: Giant Platelets Few; Microcytosis Slight
[2017-10-17] MEDS: BUDESONIDE 0.25 MG/2 ML NEB RESP TX SCH ×2 (07:18→20:09)
[2017-10-17] MEDS: ARFORMOTEROL 15 MCG/2 ML NEB RESP TX SCH ×2 (07:18→20:09)
[2017-10-17] MEDS: DORNASE ALFA 2.5 MG/2.5 ML VIAL RESP TX SCH ×3 (07:24→20:18)
[2017-10-17] MEDS: SODIUM BICARB INJ 50 MEQ in SODIUM CHLORIDE 0.45% 1,000 ML IV SCH ×2 (09:25→22:40)
[2017-10-17] MEDS: hydrALAZINE 25 MG TABLET PO SCH ×3 (09:25→21:15)
[2017-10-17] MEDS: GLIMEPIRIDE 2 MG TABLET PO SCH ×2 (09:25→21:14)
[2017-10-17] MEDS: GENTAMICIN 0.1% CREAM 15 GM TUBE TOP SCH (09:26)
[2017-10-17] MEDS: SKIN HEALING OINT (AQUAPHOR) 50 GM TUBE TOP SCH (09:26)
[2017-10-17] MEDS: sitaGLIPtin 100 MG TABLET PO SCH (09:26)
[2017-10-17] MEDS: ZINC OXIDE PASTE 113 GM TUBE TOP SCH (09:26)
[2017-10-17] MEDS: ISOSORBIDE DINITRATE 20 MG TABLET PO SCH ×3 (09:26→21:14)
[2017-10-17] MEDS: ALUMINUM/MAGNES/SIMETH MAX STR 30 ML UDCUP PO SCH ×2 (09:27→21:14)
[2017-10-17] MEDS: INSULIN GLARGINE 100 UNIT/ML SUBCUT SCH ×2 (09:27→21:15)
[2017-10-17] MEDS: PANTOPRAZOLE 40 MG VIAL IV SCH (09:27)
[2017-10-17] MEDS: MINERAL OIL/PETROLATUM OPH OINT 3.5 GM TUBE BOTH EYES SCH ×3 (09:27→21:16)
[2017-10-17] MEDS: PROPOFOL 1,000 MG/100 ML BOTTLE IV SCH ×2 (11:31→23:55)
[2017-10-17] MEDS: AMINO ACIDS 10% IV SCH (11:50)
[2017-10-17] MEDS: [UNRECOGNIZED DRUG - OTHER] IV SCH (11:50)
[2017-10-17] MEDS: DEXTROSE 70% IV SCH (11:50)
[2017-10-17] MEDS: cefTRIAXone 1,000 MG in SYRINGE 1 EACH IV SCH (12:00)
[2017-10-17] MEDS ORDERED: DEXTROSE 10% 1,000 ML IV PRN (17:00)
[2017-10-17] MEDS: AMINO ACIDS IV SCH (17:59)
[2017-10-17] MEDS: [UNRECOGNIZED DRUG - OTHER] IV SCH (17:59)
[2017-10-17] MEDS: MULTIVITAMIN IV SCH (17:59)
[2017-10-17] MEDS: TRACE ELEMENTS IV SCH (17:59)
[2017-10-17] MEDS: fentaNYL INJ 2,500 MCG in SODIUM CHLORIDE 0.9% 450 ML IV SCH (20:09)
[2017-10-18] MEDS: INSULIN LISPRO 100 UNIT/ML SUBCUT SCH ×4 (00:08→19:07)
[2017-10-18] MEDS: INSULIN REGULAR 100 UNIT/ML SUBCUT SCH ×4 (00:08→19:08)
[2017-10-18] MEDS: POLYVINYL ALCOHOL 1.4% OPH SOLN 15 ML BOTTLE BOTH EYES SCH ×18 (00:09→23:50)
[2017-10-18] MEDS: METOCLOPRAMIDE 10 MG/2 ML VIAL IV SCH ×4 (00:36→19:08)
[2017-10-18] MEDS: TOBRAMYCIN 0.3% OPH SOLN 5 ML BOTTLE BOTH EYES SCH ×2 (00:36→15:52)
[2017-10-18 05:07] LABS: ABG Base Excess -8.1 MMOL/L (-2.5-2.5); ABG HCO3 17.8 MMOL/L (20-26); ABG Oxygen Saturation 98.6 % (95-100); ABG PCO2 50.2 MM HG (35-48); ABG TCO2 18.7 MMOL/L (23-27)
[2017-10-18 05:12] LABS: ABG PH 7.205 (7.35-7.45)
[2017-10-18] MEDS: SODIUM BICARB INJ 50 MEQ in SODIUM CHLORIDE 0.45% 1,000 ML IV SCH ×2 (05:27→15:53)
[2017-10-18 05:32] LABS: Albumin 2.9 G/DL (3.4-5.0); Bilirubin,Total 1.5 MG/DL (0.2-1.0); Calcium 7.9 MG/DL (8.5-10.1); Osmolality,Calculated 337.8 MOS/KG (273-304); Potassium 4.6 MMOL/L (3.5-5.1); Total Protein 5.5 G/DL (6.4-8.3)
[2017-10-18] MEDS ORDERED: MORPHINE 2 MG/1 ML SYRINGE ONE (05:58)
[2017-10-18] MEDS ORDERED: MIDAZOLAM 2 MG/2 ML VIAL ONE (05:58)
[2017-10-18] MEDS: methylPREDNISolone SOD SUC 40 MG/1 ML VIAL IV SCH ×3 (05:59→21:22)
[2017-10-18 06:24] LABS: Calcium 8.2 MG/DL (8.5-10.1); Osmolality,Calculated 316.2 MOS/KG (273-304); Potassium 4.7 MMOL/L (3.5-5.1)
[2017-10-18] MEDS ORDERED: MIDAZOLAM 10 MG/2 ML VIAL ONE (06:40)
[2017-10-18] MEDS ORDERED: MIDAZOLAM 2 MG/2 ML VIAL IV ONE (07:21)
[2017-10-18] MEDS: ARFORMOTEROL 15 MCG/2 ML NEB RESP TX SCH ×2 (07:47→19:49)
[2017-10-18] MEDS: DORNASE ALFA 2.5 MG/2.5 ML VIAL RESP TX SCH ×2 (08:02→20:06)
[2017-10-18] MEDS: SKIN HEALING OINT (AQUAPHOR) 50 GM TUBE TOP SCH (10:52)
[2017-10-18] MEDS: GLIMEPIRIDE 2 MG TABLET PO SCH ×2 (10:52→20:57)
[2017-10-18] MEDS: hydrALAZINE 25 MG TABLET PO SCH ×3 (10:52→21:04)
[2017-10-18] MEDS: ZINC OXIDE PASTE 113 GM TUBE TOP SCH (10:53)
[2017-10-18] MEDS: sitaGLIPtin 100 MG TABLET PO SCH (10:53)
[2017-10-18] MEDS: GENTAMICIN 0.1% CREAM 15 GM TUBE TOP SCH (10:53)
[2017-10-18] MEDS: INSULIN GLARGINE 100 UNIT/ML SUBCUT SCH ×2 (10:53→20:57)
[2017-10-18] MEDS: ALUMINUM/MAGNES/SIMETH MAX STR 30 ML UDCUP PO SCH ×2 (10:53→21:22)
[2017-10-18] MEDS: PANTOPRAZOLE 40 MG VIAL IV SCH (10:53)
[2017-10-18] MEDS: ISOSORBIDE DINITRATE 20 MG TABLET PO SCH ×3 (10:53→21:22)
[2017-10-18] MEDS: MINERAL OIL/PETROLATUM OPH OINT 3.5 GM TUBE BOTH EYES SCH ×3 (10:54→21:23)
[2017-10-18] MEDS: PROPOFOL 1,000 MG/100 ML BOTTLE IV SCH ×3 (10:54→15:43)
[2017-10-18] MEDS: hydrALAZINE 20 MG/1 ML VIAL IV PRN (13:45)
[2017-10-18] MEDS: SODIUM BICARB INJ 100 MEQ in DEXTROSE 5% 900 ML IV SCH (15:52)
[2017-10-18] MEDS: cefTRIAXone 1,000 MG in SYRINGE 1 EACH IV SCH (15:52)
[2017-10-18] MEDS: ALBUMIN 25% 25 GM in PREMIX 1 EACH IV SCH (17:30)
[2017-10-18] MEDS: TRACE ELEMENTS IV SCH (19:07)
[2017-10-18] MEDS: [UNRECOGNIZED DRUG - OTHER] IV SCH (19:07)
[2017-10-18] MEDS: AMINO ACIDS IV SCH (19:07)
[2017-10-18] MEDS: MULTIVITAMIN IV SCH (19:07)
[2017-10-18] MEDS: fentaNYL INJ 2,500 MCG in SODIUM CHLORIDE 0.9% 450 ML IV SCH (19:32)
[2017-10-18] MEDS: ALBUTEROL/IPRATROPIUM 3 ML NEB RESP TX PRN (20:23)
[2017-10-18] MEDS: ENOXAPARIN 30 MG/0.3 ML SYRINGE SUBCUT SCH (21:23)
[2017-10-18] MEDS: FLUCONAZOLE INJ 100 MG in IV BAG 1 EACH IV SCH (21:31)
[2017-10-19] MEDS: INSULIN LISPRO 100 UNIT/ML SUBCUT SCH ×4 (00:04→17:48)
[2017-10-19] MEDS: INSULIN REGULAR 100 UNIT/ML SUBCUT SCH ×4 (00:04→18:34)
[2017-10-19] MEDS: ALBUMIN 25% 25 GM in PREMIX 1 EACH IV SCH ×2 (00:37→12:55)
[2017-10-19] MEDS: METOCLOPRAMIDE 10 MG/2 ML VIAL IV SCH ×4 (00:37→17:48)
[2017-10-19] MEDS: TOBRAMYCIN 0.3% OPH SOLN 5 ML BOTTLE BOTH EYES SCH ×2 (00:38→13:56)
[2017-10-19] MEDS: POLYVINYL ALCOHOL 1.4% OPH SOLN 15 ML BOTTLE BOTH EYES SCH ×22 (00:38→23:45)
[2017-10-19 04:37] LABS: ABG HCO3 17.9 MMOL/L (20-26); ABG Oxygen Saturation 98.6 % (95-100); ABG PCO2 44.7 MM HG (35-48); ABG PH 7.239 (7.35-7.45); ABG TCO2 18.1 MMOL/L (23-27)
[2017-10-19] MEDS: PROPOFOL 1,000 MG/100 ML BOTTLE IV SCH ×2 (04:59→12:28)
[2017-10-19] MEDS: methylPREDNISolone SOD SUC 40 MG/1 ML VIAL IV SCH ×3 (05:45→21:34)
[2017-10-19] MEDS: ARFORMOTEROL 15 MCG/2 ML NEB RESP TX SCH ×2 (07:14→20:40)
[2017-10-19] MEDS: DORNASE ALFA 2.5 MG/2.5 ML VIAL RESP TX SCH ×2 (07:14→20:45)
[2017-10-19 07:39] LABS: Bilirubin,Total 3.1 MG/DL (0.2-1.0); Calcium 8.5 MG/DL (8.5-10.1); Osmolality,Calculated 322.4 MOS/KG (273-304); Potassium 4.6 MMOL/L (3.5-5.1); Total Protein 5.6 G/DL (6.4-8.3)
[2017-10-19] MEDS: PANTOPRAZOLE 40 MG VIAL IV SCH (08:15)
[2017-10-19] MEDS: INSULIN GLARGINE 100 UNIT/ML SUBCUT SCH ×2 (08:15→21:40)
[2017-10-19] MEDS: MINERAL OIL/PETROLATUM OPH OINT 3.5 GM TUBE BOTH EYES SCH ×3 (08:15→21:40)
[2017-10-19] MEDS: GLIMEPIRIDE 2 MG TABLET PO SCH ×2 (08:16→21:16)
[2017-10-19] MEDS: sitaGLIPtin 100 MG TABLET PO SCH (08:16)
[2017-10-19] MEDS: ISOSORBIDE DINITRATE 20 MG TABLET PO SCH ×3 (08:16→21:16)
[2017-10-19] MEDS: hydrALAZINE 25 MG TABLET PO SCH ×3 (08:16→21:16)
[2017-10-19] MEDS: ALUMINUM/MAGNES/SIMETH MAX STR 30 ML UDCUP PO SCH ×2 (08:30→21:17)
[2017-10-19] MEDS: cefTRIAXone 1,000 MG in SYRINGE 1 EACH IV SCH (12:48)
[2017-10-19] MEDS: ZINC OXIDE PASTE 113 GM TUBE TOP SCH (13:56)
[2017-10-19] MEDS: SKIN HEALING OINT (AQUAPHOR) 50 GM TUBE TOP SCH (13:56)
[2017-10-19] MEDS: GENTAMICIN 0.1% CREAM 15 GM TUBE TOP SCH (13:57)
[2017-10-19] MEDS: SODIUM BICARB INJ 100 MEQ in DEXTROSE 5% 900 ML IV SCH (17:48)
[2017-10-19] MEDS: MULTIVITAMIN INJ 10 ML in AMINO ACIDS/DEXT/LYTES 5-25% 2,000 ML IV SCH (17:52)
[2017-10-19] MEDS: hydrALAZINE 20 MG/1 ML VIAL IV PRN (17:56)
[2017-10-19] MEDS: ENOXAPARIN 30 MG/0.3 ML SYRINGE SUBCUT SCH (21:15)
[2017-10-20] MEDS: hydrALAZINE 20 MG/1 ML VIAL IV PRN ×3 (00:33→14:55)
[2017-10-20] MEDS: METOCLOPRAMIDE 10 MG/2 ML VIAL IV SCH ×4 (00:36→17:55)
[2017-10-20] MEDS: ALBUMIN 25% 25 GM in PREMIX 1 EACH IV SCH ×2 (00:41→15:09)
[2017-10-20] MEDS: POLYVINYL ALCOHOL 1.4% OPH SOLN 15 ML BOTTLE BOTH EYES SCH ×22 (00:43→23:25)
[2017-10-20] MEDS: INSULIN REGULAR 100 UNIT/ML SUBCUT SCH ×4 (01:09→17:36)
[2017-10-20] MEDS: INSULIN LISPRO 100 UNIT/ML SUBCUT SCH ×4 (01:09→17:35)
[2017-10-20] MEDS: TOBRAMYCIN 0.3% OPH SOLN 5 ML BOTTLE BOTH EYES SCH ×2 (02:39→14:52)
[2017-10-20] MEDS: ALBUTEROL/IPRATROPIUM 3 ML NEB RESP TX PRN (03:05)
[2017-10-20 03:23] LABS: ABG Base Excess -7.6 MMOL/L (-2.5-2.5); ABG HCO3 18.9 MMOL/L (20-26); ABG PCO2 42.8 MM HG (35-48); ABG PH 7.263 (7.35-7.45); ABG PO2 134.6 MM HG (80-95); ABG TCO2 20.2 MMOL/L (23-27); Allen Test Positive; Pt O2 Delivery Device Ventilator
[2017-10-20 04:37] LABS: Basophils % 0.1 % (0.0-0.8); Eosinophils % 0.1 % (0.00-10.9); Hematocrit 23.5 VOL% (35.7-47.0); Hemoglobin 7.7 GM/DL (12.0-16.0); Immature Granulocytes Absolute 0.12 #; Lymphocytes # 0.2 10*3/uL (1.4-4.0); Lymphocytes % 1.3 % (21.3-54.2); Mean Corpuscular HGB Conc 32.8 GM/DL (32-36); Mean Corpuscular Hemoglobin 29 PG (27-34); Mean Corpuscular Volume 89.4 FL (87-102); Mean Platelet Volume 12.8 FL (9.6-12.0); Monocytes # 0.5 10*3/uL (0.11-0.8); Neutrophils # 11.6 10*3/uL (1.4-7.4); Neutrophils % 93.5 % (38.7-73.9); Platelet Count 98 T/CUMM (130-400); Red Blood Count 2.63 MC/CUMM (3.8-5.5); Red Cell Distribution Width 14.3 % (9.3-17.3); White Blood Count 12.4 T/CUMM (4-12)
[2017-10-20 05:11] LABS: Burr Cells Slight; Hypochromasia 1+; Lymphocytes 2 % (20-55); Ovalocytes Slight; Platelet Estimate Decreased; Segmented Neutrophils 96 % (50-85); Total Cells Counted 100
[2017-10-20 05:12] LABS: Microcytosis Slight
[2017-10-20 05:25] LABS: Prealbumin 18.5 MG/DL (20-40)
[2017-10-20 05:26] LABS: Calcium 8.3 MG/DL (8.5-10.1); Osmolality,Calculated 325.7 MOS/KG (273-304); Potassium 4.7 MMOL/L (3.5-5.1)
[2017-10-20] MEDS: SODIUM BICARB INJ 100 MEQ in DEXTROSE 5% 900 ML IV SCH (05:40)
[2017-10-20] MEDS: methylPREDNISolone SOD SUC 40 MG/1 ML VIAL IV SCH ×3 (06:03→21:40)
[2017-10-20] MEDS: fentaNYL INJ 2,500 MCG in SODIUM CHLORIDE 0.9% 450 ML IV SCH (08:18)
[2017-10-20] MEDS: ISOSORBIDE DINITRATE 20 MG TABLET PO SCH ×3 (08:19→20:28)
[2017-10-20] MEDS: hydrALAZINE 25 MG TABLET PO SCH ×2 (08:19→14:54)
[2017-10-20] MEDS: GLIMEPIRIDE 2 MG TABLET PO SCH ×2 (08:19→20:29)
[2017-10-20] MEDS: MINERAL OIL/PETROLATUM OPH OINT 3.5 GM TUBE BOTH EYES SCH ×3 (08:20→20:38)
[2017-10-20] MEDS: ALUMINUM/MAGNES/SIMETH MAX STR 30 ML UDCUP PO SCH ×2 (08:26→20:29)
[2017-10-20] MEDS: PANTOPRAZOLE 40 MG VIAL IV SCH (08:26)
[2017-10-20] MEDS: DORNASE ALFA 2.5 MG/2.5 ML VIAL RESP TX SCH ×2 (08:39→20:18)
[2017-10-20] MEDS: ARFORMOTEROL 15 MCG/2 ML NEB RESP TX SCH ×2 (08:39→20:18)
[2017-10-20] MEDS: INSULIN GLARGINE 100 UNIT/ML SUBCUT SCH ×2 (09:08→20:36)
[2017-10-20] MEDS: PROPOFOL 1,000 MG/100 ML BOTTLE IV SCH ×2 (11:25→23:31)
[2017-10-20] MEDS ORDERED: HEPARIN 5,000 UNIT/1 ML VIAL ONE (12:39)
[2017-10-20] MEDS: sitaGLIPtin 100 MG TABLET PO SCH (13:00)
[2017-10-20 14:04] LABS: Hepatitis A Ab IgM Quant 0.09 Index; Hepatitis A Ab IgM Result Negative (Negative); Hepatitis B Core IgM Quant 0.16 Index; Hepatitis B Core IgM Result Negative (Negative); Hepatitis B Surface Ag Quant < 0.10 Index; Hepatitis B Surface Ag Result Negative (Negative); Hepatitis C Virus Ab Quant 0.04 Index; Hepatitis C Virus Ab Result Negative (Negative)
[2017-10-20] MEDS ORDERED: VECURONIUM 10 MG VIAL IV ONE (14:51)
[2017-10-20] MEDS ORDERED: SEVOFLURANE 1 UNIT/15 MINUTE INH ONE (14:51)
[2017-10-20] MEDS ORDERED: fentaNYL 100 MCG/2 ML VIAL ONE (14:51)
[2017-10-20] MEDS: cefTRIAXone 1,000 MG in SYRINGE 1 EACH IV SCH (15:03)
[2017-10-20] MEDS: ZINC OXIDE PASTE 113 GM TUBE TOP SCH (15:09)
[2017-10-20] MEDS: SKIN HEALING OINT (AQUAPHOR) 50 GM TUBE TOP SCH (15:10)
[2017-10-20] MEDS: GENTAMICIN 0.1% CREAM 15 GM TUBE TOP SCH (15:10)
[2017-10-20] MEDS: MULTIVITAMIN INJ 10 ML in AMINO ACIDS/DEXT/LYTES 5-25% 2,000 ML IV SCH (18:13)
[2017-10-20] MEDS ORDERED: HEPARIN 10,000 UNIT/10 ML VIAL IV PRN (18:17)
[2017-10-20] MEDS: ENOXAPARIN 30 MG/0.3 ML SYRINGE SUBCUT SCH (20:29)
[2017-10-20] MEDS: FLUCONAZOLE INJ 100 MG in IV BAG 1 EACH IV SCH (23:43)
[2017-10-21] MEDS: POLYVINYL ALCOHOL 1.4% OPH SOLN 15 ML BOTTLE BOTH EYES SCH ×12 (00:12→23:20)
[2017-10-21] MEDS: INSULIN REGULAR 100 UNIT/ML SUBCUT SCH ×3 (00:57→19:34)
[2017-10-21] MEDS: INSULIN LISPRO 100 UNIT/ML SUBCUT SCH ×4 (00:58→19:34)
[2017-10-21] MEDS: ALBUMIN 25% 25 GM in PREMIX 1 EACH IV SCH ×2 (00:59→12:30)
[2017-10-21] MEDS: TOBRAMYCIN 0.3% OPH SOLN 5 ML BOTTLE BOTH EYES SCH ×2 (01:06→19:36)
[2017-10-21] MEDS: METOCLOPRAMIDE 10 MG/2 ML VIAL IV SCH ×4 (02:29→19:35)
[2017-10-21] MEDS: SODIUM BICARB INJ 100 MEQ in DEXTROSE 5% 900 ML IV SCH ×3 (03:31→21:00)
[2017-10-21 03:50] LABS: ABG Base Excess -6.1 MMOL/L (-2.5-2.5); ABG HCO3 20.5 MMOL/L (20-26); ABG Oxygen Saturation 91.5 % (95-100); ABG PCO2 45.3 MM HG (35-48); ABG PH 7.274 (7.35-7.45); ABG PO2 71.9 MM HG (80-95); ABG TCO2 21.9 MMOL/L (23-27)
[2017-10-21 04:59] LABS: Basophils % 0.1 % (0.0-0.8); Eosinophils % 0.1 % (0.00-10.9); Hematocrit 27.3 VOL% (35.7-47.0); Hemoglobin 9.1 GM/DL (12.0-16.0); Lymphocytes # 0.1 10*3/uL (1.4-4.0); Lymphocytes % 1.3 % (21.3-54.2); Mean Corpuscular HGB Conc 33.3 GM/DL (32-36); Mean Corpuscular Hemoglobin 30 PG (27-34); Mean Corpuscular Volume 88.6 FL (87-102); Mean Platelet Volume 13.2 FL (9.6-12.0); Monocytes # 0.6 10*3/uL (0.11-0.8); Monocytes % 5.5 % (1.7-12.7); Neutrophils # 9.5 10*3/uL (1.4-7.4); Platelet Count 102 T/CUMM (130-400); Red Blood Count 3.08 MC/CUMM (3.8-5.5); Red Cell Distribution Width 14.5 % (9.3-17.3); White Blood Count 10.3 T/CUMM (4-12)
[2017-10-21 05:29] LABS: Albumin 3.4 G/DL (3.4-5.0); Bilirubin,Total 3.1 MG/DL (0.2-1.0); Calcium 8.9 MG/DL (8.5-10.1); Osmolality,Calculated 318.5 MOS/KG (273-304); Potassium 4.4 MMOL/L (3.5-5.1); Total Protein 5.9 G/DL (6.4-8.3)
[2017-10-21 05:42] LABS: Lymphocytes 1 % (20-55); Segmented Neutrophils 97 % (50-85); Total Cells Counted 100
[2017-10-21] MEDS: methylPREDNISolone SOD SUC 40 MG/1 ML VIAL IV SCH ×3 (05:42→20:52)
[2017-10-21 05:43] LABS: Hypochromasia Slight; Microcytosis Slight; Ovalocytes Slight
[2017-10-21] MEDS: ARFORMOTEROL 15 MCG/2 ML NEB RESP TX SCH ×2 (07:27→20:11)
[2017-10-21] MEDS: DORNASE ALFA 2.5 MG/2.5 ML VIAL RESP TX SCH ×2 (07:36→20:11)
[2017-10-21] MEDS: fentaNYL INJ 2,500 MCG in SODIUM CHLORIDE 0.9% 450 ML IV SCH ×2 (07:39→20:42)
[2017-10-21] MEDS ORDERED: METOCLOPRAMIDE 10 MG/2 ML VIAL ONE (08:26)
[2017-10-21] MEDS: GLIMEPIRIDE 2 MG TABLET PO SCH ×2 (10:30→20:20)
[2017-10-21] MEDS: ISOSORBIDE DINITRATE 20 MG TABLET PO SCH ×3 (10:30→20:20)
[2017-10-21] MEDS: MINERAL OIL/PETROLATUM OPH OINT 3.5 GM TUBE BOTH EYES SCH ×3 (10:30→20:52)
[2017-10-21] MEDS: SKIN HEALING OINT (AQUAPHOR) 50 GM TUBE TOP SCH (19:29)
[2017-10-21] MEDS: sitaGLIPtin 100 MG TABLET PO SCH (19:30)
[2017-10-21] MEDS: ZINC OXIDE PASTE 113 GM TUBE TOP SCH (19:30)
[2017-10-21] MEDS: GENTAMICIN 0.1% CREAM 15 GM TUBE TOP SCH (19:30)
[2017-10-21] MEDS: INSULIN GLARGINE 100 UNIT/ML SUBCUT SCH ×2 (19:31→20:23)
[2017-10-21] MEDS: ALUMINUM/MAGNES/SIMETH MAX STR 30 ML UDCUP PO SCH ×2 (19:31→20:11)
[2017-10-21] MEDS: PANTOPRAZOLE 40 MG VIAL IV SCH (19:31)
[2017-10-21] MEDS: PROPOFOL 1,000 MG/100 ML BOTTLE IV SCH ×3 (19:32→22:50)
[2017-10-21] MEDS: cefTRIAXone 1,000 MG in SYRINGE 1 EACH IV SCH (19:35)
[2017-10-21] MEDS: MULTIVITAMIN INJ 10 ML in AMINO ACIDS/DEXT/LYTES 5-25% 2,000 ML IV SCH (19:36)
[2017-10-21] MEDS: ENOXAPARIN 30 MG/0.3 ML SYRINGE SUBCUT SCH (20:23)
[2017-10-22] MEDS: POLYVINYL ALCOHOL 1.4% OPH SOLN 15 ML BOTTLE BOTH EYES SCH ×24 (00:39→22:52)
[2017-10-22] MEDS: INSULIN REGULAR 100 UNIT/ML SUBCUT SCH ×5 (00:39→23:35)
[2017-10-22] MEDS: INSULIN LISPRO 100 UNIT/ML SUBCUT SCH ×5 (00:39→23:34)
[2017-10-22] MEDS: ALBUMIN 25% 25 GM in PREMIX 1 EACH IV SCH ×3 (00:40→23:35)
[2017-10-22] MEDS: TOBRAMYCIN 0.3% OPH SOLN 5 ML BOTTLE BOTH EYES SCH ×2 (00:40→13:56)
[2017-10-22] MEDS: METOCLOPRAMIDE 10 MG/2 ML VIAL IV SCH ×3 (01:16→18:38)
[2017-10-22] MEDS: hydrALAZINE 20 MG/1 ML VIAL IV PRN (03:27)
[2017-10-22] MEDS: PROPOFOL 1,000 MG/100 ML BOTTLE IV SCH ×8 (04:01→23:28)
[2017-10-22] MEDS: methylPREDNISolone SOD SUC 40 MG/1 ML VIAL IV SCH ×3 (05:58→21:21)
[2017-10-22] MEDS: ARFORMOTEROL 15 MCG/2 ML NEB RESP TX SCH ×2 (07:21→20:51)
[2017-10-22] MEDS: DORNASE ALFA 2.5 MG/2.5 ML VIAL RESP TX SCH ×2 (07:27→20:51)
[2017-10-22] MEDS: SODIUM BICARB INJ 100 MEQ in DEXTROSE 5% 900 ML IV SCH ×2 (08:01→18:58)
[2017-10-22] MEDS: PANTOPRAZOLE 40 MG VIAL IV SCH (09:40)
[2017-10-22] MEDS: SKIN HEALING OINT (AQUAPHOR) 50 GM TUBE TOP SCH (09:42)
[2017-10-22] MEDS: GLIMEPIRIDE 2 MG TABLET PO SCH ×2 (09:42→21:19)
[2017-10-22] MEDS: sitaGLIPtin 100 MG TABLET PO SCH (09:44)
[2017-10-22] MEDS: GENTAMICIN 0.1% CREAM 15 GM TUBE TOP SCH (09:45)
[2017-10-22] MEDS: ZINC OXIDE PASTE 113 GM TUBE TOP SCH (09:45)
[2017-10-22] MEDS: ALUMINUM/MAGNES/SIMETH MAX STR 30 ML UDCUP PO SCH ×2 (09:46→21:21)
[2017-10-22] MEDS: INSULIN GLARGINE 100 UNIT/ML SUBCUT SCH ×2 (09:46→21:21)
[2017-10-22] MEDS: MINERAL OIL/PETROLATUM OPH OINT 3.5 GM TUBE BOTH EYES SCH ×3 (09:48→21:22)
[2017-10-22] MEDS: ISOSORBIDE DINITRATE 20 MG TABLET PO SCH ×3 (10:19→21:19)
[2017-10-22] MEDS: cefTRIAXone 1,000 MG in SYRINGE 1 EACH IV SCH (13:00)
[2017-10-22] MEDS: METOCLOPRAMIDE 10 MG/10 ML UDCUP PO SCH ×3 (14:10→23:42)
[2017-10-22] MEDS: MULTIVITAMIN INJ 10 ML in AMINO ACIDS/DEXT/LYTES 5-25% 2,000 ML IV SCH (16:46)
[2017-10-22] MEDS: fentaNYL INJ 1,250 MCG in SODIUM CHLORIDE 0.9% 225 ML IV SCH ×2 (20:38→22:18)
[2017-10-22] MEDS: ENOXAPARIN 30 MG/0.3 ML SYRINGE SUBCUT SCH (21:20)
[2017-10-22] MEDS: FLUCONAZOLE INJ 100 MG in IV BAG 1 EACH IV SCH (21:22)
[2017-10-23] MEDS: POLYVINYL ALCOHOL 1.4% OPH SOLN 15 ML BOTTLE BOTH EYES SCH ×14 (00:16→23:35)
[2017-10-23] MEDS: TOBRAMYCIN 0.3% OPH SOLN 5 ML BOTTLE BOTH EYES SCH ×2 (01:51→18:58)
[2017-10-23] MEDS: fentaNYL INJ 1,250 MCG in SODIUM CHLORIDE 0.9% 225 ML IV SCH ×3 (03:57→23:17)
[2017-10-23 05:03] LABS: Basophils % 0.2 % (0.0-0.8); Eosinophils % 0.3 % (0.00-10.9); Hematocrit 22.1 VOL% (35.7-47.0); Hemoglobin 7.7 GM/DL (12.0-16.0); Immature Granulocytes % 0.8 %; Immature Granulocytes Absolute 0.05 #; Lymphocytes # 0.1 10*3/uL (1.4-4.0); Lymphocytes % 1.7 % (21.3-54.2); Mean Corpuscular HGB Conc 34.8 GM/DL (32-36); Mean Corpuscular Hemoglobin 31 PG (27-34); Mean Platelet Volume 13.7 FL (9.6-12.0); Monocytes # 0.4 10*3/uL (0.11-0.8); Monocytes % 6.4 % (1.7-12.7); NRBC # 0.02 10*3/uL; Neutrophils # 5.3 10*3/uL (1.4-7.4); Neutrophils % 90.6 % (38.7-73.9); Platelet Count 80 T/CUMM (130-400); Red Blood Count 2.51 MC/CUMM (3.8-5.5); Red Cell Distribution Width 14.9 % (9.3-17.3); White Blood Count 5.9 T/CUMM (4-12)
[2017-10-23 05:59] LABS: Band Neutrophils 4 % (0-10); Giant Platelets Few; Hypochromasia 1+; Lymphocytes 1 % (20-55); Platelet Estimate Decreased; Segmented Neutrophils 93 % (50-85); Total Cells Counted 100
[2017-10-23 06:00] LABS: Microcytosis Slight
[2017-10-23] MEDS: methylPREDNISolone SOD SUC 40 MG/1 ML VIAL IV SCH ×3 (06:07→20:58)
[2017-10-23] MEDS: INSULIN REGULAR 100 UNIT/ML SUBCUT SCH ×3 (06:08→23:35)
[2017-10-23] MEDS: INSULIN LISPRO 100 UNIT/ML SUBCUT SCH ×2 (06:08→18:56)
[2017-10-23] MEDS: METOCLOPRAMIDE 10 MG/10 ML UDCUP PO SCH ×3 (06:08→18:57)
[2017-10-23 06:09] LABS: Calcium 7.5 MG/DL (8.5-10.1); Osmolality,Calculated 295.8 MOS/KG (273-304); Potassium 3.6 MMOL/L (3.5-5.1)
[2017-10-23] MEDS: ARFORMOTEROL 15 MCG/2 ML NEB RESP TX SCH ×2 (07:14→19:07)
[2017-10-23] MEDS: DORNASE ALFA 2.5 MG/2.5 ML VIAL RESP TX SCH ×2 (07:14→19:07)
[2017-10-23 09:01] LABS: ABG Base Excess -2.4 MMOL/L (-2.5-2.5); ABG Oxygen Saturation 95.3 % (95-100); ABG PCO2 56.1 MM HG (35-48); ABG PH 7.266 (7.35-7.45); ABG PO2 88.9 MM HG (80-95); ABG TCO2 26.7 MMOL/L (23-27); Allen Test Positive; Pt O2 Delivery Device Ventilator
[2017-10-23] MEDS: GLIMEPIRIDE 2 MG TABLET PO SCH ×2 (09:30→20:25)
[2017-10-23] MEDS: INSULIN GLARGINE 100 UNIT/ML SUBCUT SCH ×2 (10:30→20:27)
[2017-10-23] MEDS: sitaGLIPtin 100 MG TABLET PO SCH (10:30)
[2017-10-23] MEDS: ISOSORBIDE DINITRATE 20 MG TABLET PO SCH ×3 (10:30→20:25)
[2017-10-23] MEDS: PROPOFOL 1,000 MG/100 ML BOTTLE IV SCH ×3 (10:30→23:35)
[2017-10-23] MEDS: MINERAL OIL/PETROLATUM OPH OINT 3.5 GM TUBE BOTH EYES SCH ×3 (10:30→20:40)
[2017-10-23] MEDS ORDERED: SODIUM CHLORIDE 0.9% 1,000 ML IV PRN ×2 (11:00→15:10)
[2017-10-23] MEDS: SKIN HEALING OINT (AQUAPHOR) 50 GM TUBE TOP SCH (18:51)
[2017-10-23] MEDS: ZINC OXIDE PASTE 113 GM TUBE TOP SCH (18:52)
[2017-10-23] MEDS: GENTAMICIN 0.1% CREAM 15 GM TUBE TOP SCH (18:52)
[2017-10-23] MEDS: ALUMINUM/MAGNES/SIMETH MAX STR 30 ML UDCUP PO SCH ×2 (18:53→20:27)
[2017-10-23] MEDS: PANTOPRAZOLE 40 MG VIAL IV SCH (18:53)
[2017-10-23] MEDS: ALBUMIN 25% 25 GM in PREMIX 1 EACH IV SCH ×2 (18:56→23:35)
[2017-10-23] MEDS: cefTRIAXone 1,000 MG in SYRINGE 1 EACH IV SCH (18:57)
[2017-10-23] MEDS: SODIUM BICARB INJ 100 MEQ in DEXTROSE 5% 900 ML IV SCH ×2 (18:57→20:34)
[2017-10-23] MEDS: MULTIVITAMIN INJ 10 ML in AMINO ACIDS/DEXT/LYTES 5-25% 2,000 ML IV SCH (19:38)
[2017-10-23] MEDS: ENOXAPARIN 30 MG/0.3 ML SYRINGE SUBCUT SCH (20:27)
[2017-10-24] MEDS: INSULIN LISPRO 100 UNIT/ML SUBCUT SCH ×4 (00:07→17:27)
[2017-10-24] MEDS: POLYVINYL ALCOHOL 1.4% OPH SOLN 15 ML BOTTLE BOTH EYES SCH ×21 (00:35→23:13)
[2017-10-24] MEDS: TOBRAMYCIN 0.3% OPH SOLN 5 ML BOTTLE BOTH EYES SCH ×2 (00:35→13:25)
[2017-10-24] MEDS: fentaNYL INJ 1,250 MCG in SODIUM CHLORIDE 0.9% 225 ML IV SCH ×3 (03:49→20:05)
[2017-10-24 04:41] LABS: ABG Base Excess 0.2 MMOL/L (-2.5-2.5); ABG HCO3 24.3 MMOL/L (20-26); ABG Oxygen Saturation 85.4 % (95-100); ABG PCO2 60.4 MM HG (35-48); ABG PH 7.283 (7.35-7.45); ABG PO2 56.6 MM HG (80-95); ABG TCO2 25.4 MMOL/L (23-27); Allen Test Positive; Pt O2 Delivery Device Ventilator
[2017-10-24] MEDS: INSULIN REGULAR 100 UNIT/ML SUBCUT SCH ×3 (05:36→17:27)
[2017-10-24] MEDS: METOCLOPRAMIDE 10 MG/10 ML UDCUP PO SCH ×4 (05:36→17:29)
[2017-10-24] MEDS: methylPREDNISolone SOD SUC 40 MG/1 ML VIAL IV SCH ×3 (05:36→21:58)
[2017-10-24] MEDS: PROPOFOL 1,000 MG/100 ML BOTTLE IV SCH ×4 (06:41→21:10)
[2017-10-24] MEDS: ARFORMOTEROL 15 MCG/2 ML NEB RESP TX SCH ×2 (07:54→20:22)
[2017-10-24] MEDS: DORNASE ALFA 2.5 MG/2.5 ML VIAL RESP TX SCH ×2 (08:00→20:25)
[2017-10-24] MEDS: ISOSORBIDE DINITRATE 20 MG TABLET PO SCH ×3 (08:08→21:57)
[2017-10-24] MEDS: sitaGLIPtin 100 MG TABLET PO SCH (08:11)
[2017-10-24] MEDS: GLIMEPIRIDE 2 MG TABLET PO SCH ×2 (08:11→21:57)
[2017-10-24] MEDS: ALUMINUM/MAGNES/SIMETH MAX STR 30 ML UDCUP PO SCH ×2 (08:11→21:58)
[2017-10-24] MEDS: GENTAMICIN 0.1% CREAM 15 GM TUBE TOP SCH (08:12)
[2017-10-24] MEDS: MINERAL OIL/PETROLATUM OPH OINT 3.5 GM TUBE BOTH EYES SCH ×3 (08:12→21:58)
[2017-10-24] MEDS: SKIN HEALING OINT (AQUAPHOR) 50 GM TUBE TOP SCH (08:12)
[2017-10-24] MEDS: ZINC OXIDE PASTE 113 GM TUBE TOP SCH (08:13)
[2017-10-24] MEDS: PANTOPRAZOLE 40 MG VIAL IV SCH (08:13)
[2017-10-24] MEDS: INSULIN GLARGINE 100 UNIT/ML SUBCUT SCH ×3 (10:12→21:58)
[2017-10-24] MEDS: SODIUM BICARB INJ 100 MEQ in DEXTROSE 5% 900 ML IV SCH ×2 (11:13→17:14)
[2017-10-24 11:22] LABS: Basophils % 0.3 % (0.0-0.8); Eosinophils # 0.1 10*3/uL (0.0-0.87); Eosinophils % 1.9 % (0.00-10.9); Hematocrit 27.6 VOL% (35.7-47.0); Hemoglobin 8.9 GM/DL (12.0-16.0); Immature Granulocytes % 0.9 %; Immature Granulocytes Absolute 0.06 #; Lymphocytes # 0.2 10*3/uL (1.4-4.0); Lymphocytes % 2.7 % (21.3-54.2); Mean Corpuscular HGB Conc 32.2 GM/DL (32-36); Mean Corpuscular Hemoglobin 30 PG (27-34); Mean Corpuscular Volume 92.3 FL (87-102); Mean Platelet Volume 13.4 FL (9.6-12.0); Monocytes # 0.2 10*3/uL (0.11-0.8); Monocytes % 3.5 % (1.7-12.7); NRBC # 0.02 10*3/uL; Neutrophils # 5.8 10*3/uL (1.4-7.4); Neutrophils % 90.7 % (38.7-73.9); Platelet Count 58 T/CUMM (130-400); Red Blood Count 2.99 MC/CUMM (3.8-5.5); Red Cell Distribution Width 15.7 % (9.3-17.3); White Blood Count 6.4 T/CUMM (4-12)
[2017-10-24] MEDS: ALBUMIN 25% 25 GM in PREMIX 1 EACH IV SCH (11:50)
[2017-10-24 11:57] LABS: Bilirubin,Total 2.5 MG/DL (0.2-1.0); Calcium 8.6 MG/DL (8.5-10.1); Osmolality,Calculated 324.5 MOS/KG (273-304); Total Protein 5.3 G/DL (6.4-8.3)
[2017-10-24] MEDS: cefTRIAXone 1,000 MG in SYRINGE 1 EACH IV SCH (12:05)
[2017-10-24 12:13] LABS: Elliptocytes Few; Hypochromasia 2+; Platelet Estimate Decreased
[2017-10-24] MEDS: MULTIVITAMIN INJ 10 ML in AMINO ACIDS/DEXT/LYTES 5-15% 2,000 ML IV SCH (17:13)
[2017-10-24] MEDS: ALBUTEROL/IPRATROPIUM 3 ML NEB RESP TX PRN (20:22)
[2017-10-24] MEDS: MUPIROCIN 2% OINT 22 GM TUBE TOP SCH (21:57)
[2017-10-24] MEDS: ENOXAPARIN 30 MG/0.3 ML SYRINGE SUBCUT SCH (21:58)
[2017-10-24] MEDS: FLUCONAZOLE INJ 100 MG in IV BAG 1 EACH IV SCH (22:15)
[2017-10-25] MEDS: POLYVINYL ALCOHOL 1.4% OPH SOLN 15 ML BOTTLE BOTH EYES SCH ×22 (00:10→23:55)
[2017-10-25] MEDS: TOBRAMYCIN 0.3% OPH SOLN 5 ML BOTTLE BOTH EYES SCH ×2 (00:55→15:40)
[2017-10-25] MEDS: METOCLOPRAMIDE 10 MG/10 ML UDCUP PO SCH ×4 (00:58→18:27)
[2017-10-25] MEDS: ALBUMIN 25% 25 GM in PREMIX 1 EACH IV SCH ×2 (01:00→15:49)
[2017-10-25] MEDS: INSULIN LISPRO 100 UNIT/ML SUBCUT SCH ×4 (01:10→17:35)
[2017-10-25] MEDS: INSULIN REGULAR 100 UNIT/ML SUBCUT SCH ×4 (01:10→17:34)
[2017-10-25] MEDS: fentaNYL INJ 1,250 MCG in SODIUM CHLORIDE 0.9% 225 ML IV SCH ×3 (01:36→23:00)
[2017-10-25 03:37] LABS: ABG Base Excess 0.7 MMOL/L (-2.5-2.5); ABG PCO2 43.2 MM HG (35-48); ABG PH 7.385 (7.35-7.45); ABG TCO2 23.6 MMOL/L (23-27)
[2017-10-25 04:14] LABS: Basophils # 0.1 10*3/uL (0.0-0.2); Basophils % 0.8 % (0.0-0.8); Eosinophils # 0.1 10*3/uL (0.0-0.87); Eosinophils % 1.9 % (0.00-10.9); Hematocrit 26.1 VOL% (35.7-47.0); Immature Granulocytes % 1.1 %; Immature Granulocytes Absolute 0.08 #; Lymphocytes # 0.2 10*3/uL (1.4-4.0); Lymphocytes % 2.1 % (21.3-54.2); Mean Corpuscular HGB Conc 34.5 GM/DL (32-36); Mean Corpuscular Hemoglobin 30 PG (27-34); Mean Corpuscular Volume 87.3 FL (87-102); Mean Platelet Volume 13.4 FL (9.6-12.0); Monocytes # 0.2 10*3/uL (0.11-0.8); NRBC # 0.02 10*3/uL; Neutrophils # 6.6 10*3/uL (1.4-7.4); Neutrophils % 91.1 % (38.7-73.9); Platelet Count 162 T/CUMM (130-400); Red Blood Count 2.99 MC/CUMM (3.8-5.5); Red Cell Distribution Width 15.6 % (9.3-17.3); White Blood Count 7.3 T/CUMM (4-12)
[2017-10-25] MEDS: PROPOFOL 1,000 MG/100 ML BOTTLE IV SCH ×3 (04:42→17:40)
[2017-10-25 04:46] LABS: Band Neutrophils 9 % (0-10); Lymphocytes 2 % (20-55); Platelet Estimate Adequate; Segmented Neutrophils 87 % (50-85); Total Cells Counted 100
[2017-10-25 04:47] LABS: Albumin 3.4 G/DL (3.4-5.0); Bilirubin,Total 4.1 MG/DL (0.2-1.0); Calcium 8.8 MG/DL (8.5-10.1); Osmolality,Calculated 299.5 MOS/KG (273-304); Potassium 4.9 MMOL/L (3.5-5.1); Target Cells Few; Total Protein 5.4 G/DL (6.4-8.3)
[2017-10-25 04:48] LABS: Hypochromasia Slight; Microcytosis Slight; Ovalocytes Slight
[2017-10-25] MEDS: SODIUM BICARB INJ 100 MEQ in DEXTROSE 5% 900 ML IV SCH ×2 (05:30→17:40)
[2017-10-25] MEDS: methylPREDNISolone SOD SUC 40 MG/1 ML VIAL IV SCH ×3 (05:30→21:26)
[2017-10-25] MEDS: DORNASE ALFA 2.5 MG/2.5 ML VIAL RESP TX SCH ×2 (08:13→21:04)
[2017-10-25] MEDS: ARFORMOTEROL 15 MCG/2 ML NEB RESP TX SCH ×2 (08:13→21:04)
[2017-10-25] MEDS: MINERAL OIL/PETROLATUM OPH OINT 3.5 GM TUBE BOTH EYES SCH ×3 (09:46→21:41)
[2017-10-25] MEDS: FAMOTIDINE 20 MG/2 ML VIAL IV SCH (09:47)
[2017-10-25] MEDS: ISOSORBIDE DINITRATE 20 MG TABLET PO SCH ×3 (09:48→21:39)
[2017-10-25] MEDS: INSULIN GLARGINE 100 UNIT/ML SUBCUT SCH ×2 (09:48→21:41)
[2017-10-25] MEDS: ALUMINUM/MAGNES/SIMETH MAX STR 30 ML UDCUP PO SCH ×2 (09:48→21:39)
[2017-10-25] MEDS: GLIMEPIRIDE 2 MG TABLET PO SCH ×2 (09:48→21:39)
[2017-10-25] MEDS: MUPIROCIN 2% OINT 22 GM TUBE TOP SCH ×2 (09:49→21:40)
[2017-10-25] MEDS: ZINC OXIDE PASTE 113 GM TUBE TOP SCH (09:49)
[2017-10-25] MEDS: sitaGLIPtin 100 MG TABLET PO SCH (09:49)
[2017-10-25] MEDS: SKIN HEALING OINT (AQUAPHOR) 50 GM TUBE TOP SCH (09:49)
[2017-10-25] MEDS: GENTAMICIN 0.1% CREAM 15 GM TUBE TOP SCH (09:50)
[2017-10-25] MEDS: cefTRIAXone 1,000 MG in SYRINGE 1 EACH IV SCH (15:46)
[2017-10-25] MEDS: MULTIVITAMIN INJ 10 ML in AMINO ACIDS/DEXT/LYTES 5-15% 2,000 ML IV SCH (17:49)
[2017-10-25] MEDS: ENOXAPARIN 30 MG/0.3 ML SYRINGE SUBCUT SCH (21:30)
[2017-10-26] MEDS: PROPOFOL 1,000 MG/100 ML BOTTLE IV SCH ×5 (00:15→22:42)
[2017-10-26] MEDS: POLYVINYL ALCOHOL 1.4% OPH SOLN 15 ML BOTTLE BOTH EYES SCH ×14 (00:29→22:51)
[2017-10-26] MEDS: INSULIN LISPRO 100 UNIT/ML SUBCUT SCH ×4 (00:29→18:40)
[2017-10-26] MEDS: METOCLOPRAMIDE 10 MG/10 ML UDCUP PO SCH ×4 (00:29→18:40)
[2017-10-26] MEDS: INSULIN REGULAR 100 UNIT/ML SUBCUT SCH ×4 (00:29→18:40)
[2017-10-26] MEDS: TOBRAMYCIN 0.3% OPH SOLN 5 ML BOTTLE BOTH EYES SCH ×2 (00:30→15:39)
[2017-10-26] MEDS: hydrALAZINE 20 MG/1 ML VIAL IV PRN ×2 (00:38→09:21)
[2017-10-26] MEDS: ALBUMIN 25% 25 GM in PREMIX 1 EACH IV SCH ×2 (00:40→15:39)
[2017-10-26] MEDS: SODIUM BICARB INJ 100 MEQ in DEXTROSE 5% 900 ML IV SCH (01:30)
[2017-10-26 04:17] LABS: ABG Base Excess -0.8 MMOL/L (-2.5-2.5); ABG HCO3 24.6 MMOL/L (20-26); ABG Oxygen Saturation 97.8 % (95-100); ABG PCO2 44.1 MM HG (35-48); ABG PH 7.365 (7.35-7.45); ABG PO2 116.8 MM HG (80-95); Allen Test Positive; Pt O2 Delivery Device Ventilator
[2017-10-26 04:42] LABS: Basophils # 0.1 10*3/uL (0.0-0.2); Basophils % 0.6 % (0.0-0.8); Eosinophils # 0.1 10*3/uL (0.0-0.87); Eosinophils % 0.9 % (0.00-10.9); Hematocrit 27.3 VOL% (35.7-47.0); Hemoglobin 8.9 GM/DL (12.0-16.0); Immature Granulocytes % 0.7 %; Immature Granulocytes Absolute 0.06 #; Lymphocytes # 0.1 10*3/uL (1.4-4.0); Lymphocytes % 1.2 % (21.3-54.2); Mean Corpuscular HGB Conc 32.6 GM/DL (32-36); Mean Corpuscular Hemoglobin 30 PG (27-34); Mean Corpuscular Volume 91.3 FL (87-102); Monocytes # 0.2 10*3/uL (0.11-0.8); Monocytes % 2.6 % (1.7-12.7); Neutrophils # 7.5 10*3/uL (1.4-7.4); Platelet Count 120 T/CUMM (130-400); Red Blood Count 2.99 MC/CUMM (3.8-5.5); Red Cell Distribution Width 16.2 % (9.3-17.3)
[2017-10-26 05:01] LABS: Calcium 8.8 MG/DL (8.5-10.1); Osmolality,Calculated 314.1 MOS/KG (273-304); Potassium 5.9 MMOL/L (3.5-5.1)
[2017-10-26 05:19] LABS: Band Neutrophils 4 % (0-10); Giant Platelets Few; Hypochromasia 1+; Lymphocytes 1 % (20-55); Microcytosis Slight; Nucleated Red Blood Cells 1 (0-5); Ovalocytes Slight; Platelet Estimate Normal; Segmented Neutrophils 93 % (50-85); Total Cells Counted 100
[2017-10-26] MEDS: methylPREDNISolone SOD SUC 40 MG/1 ML VIAL IV SCH ×3 (06:00→21:50)
[2017-10-26] MEDS: DORNASE ALFA 2.5 MG/2.5 ML VIAL RESP TX SCH ×2 (08:14→19:57)
[2017-10-26] MEDS: ARFORMOTEROL 15 MCG/2 ML NEB RESP TX SCH ×2 (08:14→19:57)
[2017-10-26] MEDS: INSULIN GLARGINE 100 UNIT/ML SUBCUT SCH ×2 (09:19→21:49)
[2017-10-26] MEDS: FAMOTIDINE 20 MG/2 ML VIAL IV SCH (09:19)
[2017-10-26] MEDS: ZINC OXIDE PASTE 113 GM TUBE TOP SCH (09:19)
[2017-10-26] MEDS: ISOSORBIDE DINITRATE 20 MG TABLET PO SCH ×3 (09:19→21:46)
[2017-10-26] MEDS: MUPIROCIN 2% OINT 22 GM TUBE TOP SCH ×2 (09:19→22:53)
[2017-10-26] MEDS: GENTAMICIN 0.1% CREAM 15 GM TUBE TOP SCH (09:19)
[2017-10-26] MEDS: ALUMINUM/MAGNES/SIMETH MAX STR 30 ML UDCUP PO SCH ×4 (09:19→22:54)
[2017-10-26] MEDS: sitaGLIPtin 100 MG TABLET PO SCH (09:19)
[2017-10-26] MEDS: GLIMEPIRIDE 2 MG TABLET PO SCH ×2 (09:19→21:45)
[2017-10-26] MEDS: SKIN HEALING OINT (AQUAPHOR) 50 GM TUBE TOP SCH (09:19)
[2017-10-26] MEDS: MINERAL OIL/PETROLATUM OPH OINT 3.5 GM TUBE BOTH EYES SCH ×3 (09:20→22:00)
[2017-10-26] MEDS: cefTRIAXone 1,000 MG in SYRINGE 1 EACH IV SCH (15:39)
[2017-10-26] MEDS: MULTIVITAMIN INJ 10 ML in AMINO ACIDS/DEXT/LYTES 5-15% 2,000 ML IV SCH (18:39)
[2017-10-26] MEDS: fentaNYL INJ 1,250 MCG in SODIUM CHLORIDE 0.9% 225 ML IV SCH (20:20)
[2017-10-26] MEDS: ENOXAPARIN 30 MG/0.3 ML SYRINGE SUBCUT SCH (21:49)
[2017-10-26] MEDS: hydrALAZINE 20 MG/1 ML VIAL IV SCH (22:30)
[2017-10-26] MEDS: FLUCONAZOLE INJ 100 MG in IV BAG 1 EACH IV SCH (23:00)
[2017-10-27] MEDS ORDERED: METOCLOPRAMIDE 10 MG/2 ML VIAL IV SCH
[2017-10-27] MEDS: INSULIN REGULAR 100 UNIT/ML SUBCUT SCH ×4 (01:45→19:02)
[2017-10-27] MEDS: POLYVINYL ALCOHOL 1.4% OPH SOLN 15 ML BOTTLE BOTH EYES SCH ×12 (01:45→23:10)
[2017-10-27] MEDS: INSULIN LISPRO 100 UNIT/ML SUBCUT SCH ×4 (01:47→19:01)
[2017-10-27] MEDS: ALBUMIN 25% 25 GM in PREMIX 1 EACH IV SCH ×2 (01:48→13:59)
[2017-10-27] MEDS: METOCLOPRAMIDE 10 MG/10 ML UDCUP PO SCH ×4 (01:48→19:04)
[2017-10-27] MEDS: TOBRAMYCIN 0.3% OPH SOLN 5 ML BOTTLE BOTH EYES SCH ×2 (01:59→13:59)
[2017-10-27] MEDS: cloNIDine 0.2 MG/24 HR PATCH TRANSDERM SCH (02:34)
[2017-10-27] MEDS: PROPOFOL 1,000 MG/100 ML BOTTLE IV SCH ×4 (03:31→22:36)
[2017-10-27] MEDS: fentaNYL INJ 1,250 MCG in SODIUM CHLORIDE 0.9% 225 ML IV SCH (03:56)
[2017-10-27] MEDS: hydrALAZINE 20 MG/1 ML VIAL IV SCH (04:06)
[2017-10-27 04:46] LABS: Basophils % 0.4 % (0.0-0.8); Eosinophils # 0.1 10*3/uL (0.0-0.87); Eosinophils % 0.7 % (0.00-10.9); Hematocrit 29.7 VOL% (35.7-47.0); Hemoglobin 9.7 GM/DL (12.0-16.0); Immature Granulocytes % 1.1 %; Immature Granulocytes Absolute 0.09 #; Lymphocytes # 0.2 10*3/uL (1.4-4.0); Lymphocytes % 1.9 % (21.3-54.2); Mean Corpuscular HGB Conc 32.7 GM/DL (32-36); Mean Corpuscular Hemoglobin 29 PG (27-34); Mean Corpuscular Volume 88.7 FL (87-102); Mean Platelet Volume 13.9 FL (9.6-12.0); Monocytes # 0.3 10*3/uL (0.11-0.8); Monocytes % 3.5 % (1.7-12.7); Neutrophils # 7.9 10*3/uL (1.4-7.4); Neutrophils % 92.4 % (38.7-73.9); Platelet Count 80 T/CUMM (130-400); Red Blood Count 3.35 MC/CUMM (3.8-5.5); Red Cell Distribution Width 15.8 % (9.3-17.3); White Blood Count 8.5 T/CUMM (4-12)
[2017-10-27 04:53] LABS: ABG Base Excess -0.2 MMOL/L (-2.5-2.5); ABG HCO3 25.9 MMOL/L (20-26); ABG Oxygen Saturation 98.5 % (95-100); ABG PCO2 48.8 MM HG (35-48); ABG PH 7.342 (7.35-7.45); ABG PO2 145.8 MM HG (80-95); ABG TCO2 27.4 MMOL/L (23-27); Allen Test Positive; Pt O2 Delivery Device Ventilator
[2017-10-27 05:07] LABS: Band Neutrophils 6 % (0-10); Eosinophils 1 % (0-10); Giant Platelets Few; Hypochromasia 1+; Lymphocytes 1 % (20-55); Ovalocytes Slight; Platelet Estimate Decreased; Segmented Neutrophils 89 % (50-85); Total Cells Counted 100
[2017-10-27 05:08] LABS: Microcytosis Slight
[2017-10-27 05:13] LABS: Osmolality,Calculated 291.4 MOS/KG (273-304); Potassium 4.3 MMOL/L (3.5-5.1)
[2017-10-27 05:23] LABS: Prealbumin 13.6 MG/DL (20-40)
[2017-10-27] MEDS: methylPREDNISolone SOD SUC 40 MG/1 ML VIAL IV SCH ×3 (05:55→21:15)
[2017-10-27] MEDS: ALUMINUM/MAGNES/SIMETH MAX STR 30 ML UDCUP PO SCH ×3 (05:55→19:01)
[2017-10-27] MEDS: DORNASE ALFA 2.5 MG/2.5 ML VIAL RESP TX SCH ×2 (07:46→19:46)
[2017-10-27] MEDS: ARFORMOTEROL 15 MCG/2 ML NEB RESP TX SCH ×2 (08:28→19:46)
[2017-10-27] MEDS: MUPIROCIN 2% OINT 22 GM TUBE TOP SCH ×2 (13:54→21:28)
[2017-10-27] MEDS: SKIN HEALING OINT (AQUAPHOR) 50 GM TUBE TOP SCH (13:54)
[2017-10-27] MEDS: BISACODYL 10 MG SUPP RECTAL SCH (13:55)
[2017-10-27] MEDS: GENTAMICIN 0.1% CREAM 15 GM TUBE TOP SCH (13:55)
[2017-10-27] MEDS: ZINC OXIDE PASTE 113 GM TUBE TOP SCH (13:55)
[2017-10-27] MEDS: MINERAL OIL/PETROLATUM OPH OINT 3.5 GM TUBE BOTH EYES SCH ×3 (13:56→21:25)
[2017-10-27] MEDS: INSULIN GLARGINE 100 UNIT/ML SUBCUT SCH ×2 (13:56→21:10)
[2017-10-27] MEDS: FAMOTIDINE 20 MG/2 ML VIAL IV SCH (13:56)
[2017-10-27] MEDS: cefTRIAXone 1,000 MG in SYRINGE 1 EACH IV SCH (13:59)
[2017-10-27] MEDS: hydrALAZINE 20 MG/1 ML VIAL IV PRN (21:11)
[2017-10-27] MEDS: ENOXAPARIN 30 MG/0.3 ML SYRINGE SUBCUT SCH (21:16)
[2017-10-28] MEDS: CEFEPIME 2,000 MG in SYRINGE 1 EACH IV SCH ×3 (00:01→21:16)
[2017-10-28] MEDS: INSULIN LISPRO 100 UNIT/ML SUBCUT SCH ×3 (00:03→14:05)
[2017-10-28] MEDS: INSULIN REGULAR 100 UNIT/ML SUBCUT SCH ×4 (00:04→19:08)
[2017-10-28] MEDS: METOCLOPRAMIDE 10 MG/10 ML UDCUP PO SCH ×4 (00:04→19:24)
[2017-10-28] MEDS: ALUMINUM/MAGNES/SIMETH MAX STR 30 ML UDCUP PO SCH ×5 (00:04→23:46)
[2017-10-28] MEDS: ALBUMIN 25% 25 GM in PREMIX 1 EACH IV SCH ×3 (00:05→23:45)
[2017-10-28] MEDS: POLYVINYL ALCOHOL 1.4% OPH SOLN 15 ML BOTTLE BOTH EYES SCH ×13 (00:15→16:50)
[2017-10-28] MEDS: MULTIVITAMIN INJ 10 ML in AMINO ACIDS/DEXT/LYTES 5-15% 2,000 ML IV SCH (00:26)
[2017-10-28] MEDS: TOBRAMYCIN 0.3% OPH SOLN 5 ML BOTTLE BOTH EYES SCH ×2 (01:40→14:56)
[2017-10-28] MEDS: fentaNYL INJ 1,250 MCG in SODIUM CHLORIDE 0.9% 225 ML IV SCH (02:35)
[2017-10-28] MEDS: PROPOFOL 1,000 MG/100 ML BOTTLE IV SCH ×2 (03:46→15:05)
[2017-10-28 04:21] LABS: ABG Base Excess -1.3 MMOL/L (-2.5-2.5); ABG HCO3 23.7 MMOL/L (20-26); ABG Oxygen Saturation 98.3 % (95-100); ABG PCO2 40.6 MM HG (35-48); ABG PH 7.384 (7.35-7.45); ABG PO2 127.1 MM HG (80-95); ABG TCO2 24.9 MMOL/L (23-27); Allen Test Positive; Pt O2 Delivery Device Ventilator
[2017-10-28] MEDS: ARFORMOTEROL 15 MCG/2 ML NEB RESP TX SCH ×2 (07:30→21:17)
[2017-10-28] MEDS: DORNASE ALFA 2.5 MG/2.5 ML VIAL RESP TX SCH ×2 (07:36→21:17)
[2017-10-28] MEDS: methylPREDNISolone SOD SUC 40 MG/1 ML VIAL IV SCH ×3 (07:45→21:15)
[2017-10-28 08:03] LABS: Basophils % 0.4 % (0.0-0.8); Eosinophils % 0.5 % (0.00-10.9); Hematocrit 30.9 VOL% (35.7-47.0); Hemoglobin 10.2 GM/DL (12.0-16.0); Immature Granulocytes % 0.9 %; Immature Granulocytes Absolute 0.07 #; Lymphocytes # 0.3 10*3/uL (1.4-4.0); Lymphocytes % 3.1 % (21.3-54.2); Mean Corpuscular Hemoglobin 29 PG (27-34); Monocytes # 0.3 10*3/uL (0.11-0.8); Monocytes % 3.7 % (1.7-12.7); Neutrophils # 7.4 10*3/uL (1.4-7.4); Neutrophils % 91.4 % (38.7-73.9); Platelet Count 78 T/CUMM (130-400); Red Blood Count 3.51 MC/CUMM (3.8-5.5); Red Cell Distribution Width 15.9 % (9.3-17.3); White Blood Count 8.1 T/CUMM (4-12)
[2017-10-28 08:16] LABS: Calcium 9.4 MG/DL (8.5-10.1); Osmolality,Calculated 295.5 MOS/KG (273-304); Potassium 4.7 MMOL/L (3.5-5.1)
[2017-10-28 08:31] LABS: Hypochromasia 2+; Macrocytosis 1+; Polychromasia Slight
[2017-10-28] MEDS: MUPIROCIN 2% OINT 22 GM TUBE TOP SCH ×2 (10:10→21:55)
[2017-10-28] MEDS: MINERAL OIL/PETROLATUM OPH OINT 3.5 GM TUBE BOTH EYES SCH ×3 (10:11→21:34)
[2017-10-28] MEDS: BISACODYL 10 MG SUPP RECTAL SCH (10:11)
[2017-10-28] MEDS: FAMOTIDINE 20 MG/2 ML VIAL IV SCH (10:12)
[2017-10-28] MEDS: hydrALAZINE 20 MG/1 ML VIAL IV PRN ×2 (12:04→17:04)
[2017-10-28 13:05] LABS: Albumin 3.5 G/DL (3.4-5.0); Bilirubin,Direct 4.01 MG/DL (0.0-0.20); Total Protein 6.1 G/DL (6.4-8.3)
[2017-10-28] MEDS ORDERED: MINERAL OIL ENEMA 133 ML BOTTLE RECTAL ONE (14:00)
[2017-10-28] MEDS: INSULIN GLARGINE 100 UNIT/ML SUBCUT SCH (14:05)
[2017-10-28] MEDS: GENTAMICIN 0.1% CREAM 15 GM TUBE TOP SCH (14:05)
[2017-10-28] MEDS: SKIN HEALING OINT (AQUAPHOR) 50 GM TUBE TOP SCH (14:56)
[2017-10-28] MEDS: ZINC OXIDE PASTE 113 GM TUBE TOP SCH (16:49)
[2017-10-28] MEDS: INSULIN REGULAR IV SCH (16:54)
[2017-10-28] MEDS: MULTIVITAMIN IV SCH (16:54)
[2017-10-28] MEDS: [UNRECOGNIZED DRUG - OTHER] IV SCH (16:54)
[2017-10-28] MEDS: LORazepam 2 MG/1 ML VIAL IV PRN (19:24)
[2017-10-28] MEDS: ENOXAPARIN 30 MG/0.3 ML SYRINGE SUBCUT SCH (21:16)
[2017-10-28] MEDS: FLUCONAZOLE INJ 100 MG in IV BAG 1 EACH IV SCH (21:33)
[2017-10-28] MEDS: POLYVINYL ALCOHOL 1.4% OPH SOLN 15 ML BOTTLE BOTH EYES PRN ×2 (21:34→23:30)
[2017-10-29] MEDS: POLYVINYL ALCOHOL 1.4% OPH SOLN 15 ML BOTTLE BOTH EYES PRN (01:30)
[2017-10-29] MEDS: hydrALAZINE 20 MG/1 ML VIAL IV PRN ×3 (01:40→20:06)
[2017-10-29] MEDS: TOBRAMYCIN 0.3% OPH SOLN 5 ML BOTTLE BOTH EYES SCH ×2 (02:04→12:51)
[2017-10-29 05:09] LABS: Basophils % 0.3 % (0.0-0.8); Eosinophils # 0.1 10*3/uL (0.0-0.87); Eosinophils % 0.7 % (0.00-10.9); Hematocrit 26.7 VOL% (35.7-47.0); Hemoglobin 8.8 GM/DL (12.0-16.0); Immature Granulocytes % 0.9 %; Immature Granulocytes Absolute 0.07 #; Lymphocytes # 0.2 10*3/uL (1.4-4.0); Lymphocytes % 2.6 % (21.3-54.2); Mean Corpuscular Hemoglobin 29 PG (27-34); Mean Corpuscular Volume 87.3 FL (87-102); Monocytes # 0.3 10*3/uL (0.11-0.8); Monocytes % 3.6 % (1.7-12.7); Neutrophils % 91.9 % (38.7-73.9); Red Blood Count 3.06 MC/CUMM (3.8-5.5); White Blood Count 7.6 T/CUMM (4-12)
[2017-10-29 05:25] LABS: Platelet Count 68 T/CUMM (130-400)
[2017-10-29] MEDS: methylPREDNISolone SOD SUC 40 MG/1 ML VIAL IV SCH ×3 (05:31→21:23)
[2017-10-29] MEDS: ALUMINUM/MAGNES/SIMETH MAX STR 30 ML UDCUP PO SCH ×3 (05:32→17:56)
[2017-10-29 05:41] LABS: Calcium 9.1 MG/DL (8.5-10.1); Osmolality,Calculated 297.1 MOS/KG (273-304); Potassium 4.3 MMOL/L (3.5-5.1)
[2017-10-29] MEDS: INSULIN REGULAR 100 UNIT/ML SUBCUT SCH ×4 (05:47→18:18)
[2017-10-29] MEDS: fentaNYL INJ 1,250 MCG in SODIUM CHLORIDE 0.9% 225 ML IV SCH (05:48)
[2017-10-29] MEDS: ARFORMOTEROL 15 MCG/2 ML NEB RESP TX SCH ×2 (07:53→21:47)
[2017-10-29 08:01] LABS: Band Neutrophils 1 % (0-10); Hypochromasia 1+; Lymphocytes 5 % (20-55); Microcytosis 1+; Segmented Neutrophils 93 % (50-85); Total Cells Counted 100
[2017-10-29 08:02] LABS: Ovalocytes Slight; Platelet Estimate Decreased; Target Cells Slight
[2017-10-29] MEDS: DORNASE ALFA 2.5 MG/2.5 ML VIAL RESP TX SCH ×2 (08:10→21:47)
[2017-10-29] MEDS: BISACODYL 10 MG SUPP RECTAL SCH (08:48)
[2017-10-29] MEDS: ZINC OXIDE PASTE 113 GM TUBE TOP SCH (08:48)
[2017-10-29] MEDS: MUPIROCIN 2% OINT 22 GM TUBE TOP SCH ×2 (08:48→21:25)
[2017-10-29] MEDS: SKIN HEALING OINT (AQUAPHOR) 50 GM TUBE TOP SCH (08:48)
[2017-10-29] MEDS: MINERAL OIL/PETROLATUM OPH OINT 3.5 GM TUBE BOTH EYES SCH ×3 (08:49→21:25)
[2017-10-29] MEDS: FAMOTIDINE 20 MG/2 ML VIAL IV SCH (08:49)
[2017-10-29] MEDS: GENTAMICIN 0.1% CREAM 15 GM TUBE TOP SCH (08:49)
[2017-10-29] MEDS: CEFEPIME 2,000 MG in SYRINGE 1 EACH IV SCH ×2 (09:03→21:26)
[2017-10-29] MEDS: PROPOFOL 1,000 MG/100 ML BOTTLE IV SCH (11:20)
[2017-10-29] MEDS: ALBUMIN 25% 25 GM in PREMIX 1 EACH IV SCH (12:50)
[2017-10-29] MEDS: FAT EMULSION 20% 250 ML IV SCH (15:22)
[2017-10-29] MEDS: MULTIVITAMIN IV SCH (18:16)
[2017-10-29] MEDS: INSULIN REGULAR IV SCH (18:16)
[2017-10-29] MEDS: [UNRECOGNIZED DRUG - OTHER] IV SCH (18:16)
[2017-10-29] MEDS: ENOXAPARIN 30 MG/0.3 ML SYRINGE SUBCUT SCH (21:25)
[2017-10-30] MEDS: TOBRAMYCIN 0.3% OPH SOLN 5 ML BOTTLE BOTH EYES SCH ×2 (01:27→14:33)
[2017-10-30] MEDS: INSULIN REGULAR 100 UNIT/ML SUBCUT SCH ×4 (01:27→18:17)
[2017-10-30] MEDS: ALBUMIN 25% 25 GM in PREMIX 1 EACH IV SCH ×2 (01:27→11:41)
[2017-10-30] MEDS: ALUMINUM/MAGNES/SIMETH MAX STR 30 ML UDCUP PO SCH ×4 (01:27→18:17)
[2017-10-30 03:23] LABS: ABG Base Excess -2.6 MMOL/L (-2.5-2.5); ABG HCO3 22.5 MMOL/L (20-26); ABG Oxygen Saturation 98.7 % (95-100); ABG PCO2 39.8 MM HG (35-48); ABG PO2 171.5 MM HG (80-95); ABG TCO2 23.7 MMOL/L (23-27); Allen Test Positive; Pt O2 Delivery Device Ventilator
[2017-10-30] MEDS: hydrALAZINE 20 MG/1 ML VIAL IV PRN ×3 (04:18→16:30)
[2017-10-30] MEDS: methylPREDNISolone SOD SUC 40 MG/1 ML VIAL IV SCH ×3 (06:15→21:02)
[2017-10-30 07:31] LABS: Calcium 9.2 MG/DL (8.5-10.1); Osmolality,Calculated 313.4 MOS/KG (273-304)
[2017-10-30] MEDS: ARFORMOTEROL 15 MCG/2 ML NEB RESP TX SCH ×2 (07:51→21:08)
[2017-10-30] MEDS: DORNASE ALFA 2.5 MG/2.5 ML VIAL RESP TX SCH ×2 (07:57→21:08)
[2017-10-30] MEDS ORDERED: INSULIN GLARGINE 100 UNIT/ML SUBCUT SCH ×2 (09:00)
[2017-10-30] MEDS: SKIN HEALING OINT (AQUAPHOR) 50 GM TUBE TOP SCH (09:32)
[2017-10-30] MEDS: ZINC OXIDE PASTE 113 GM TUBE TOP SCH (09:32)
[2017-10-30] MEDS: BISACODYL 10 MG SUPP RECTAL SCH (09:32)
[2017-10-30] MEDS: FAMOTIDINE 20 MG/2 ML VIAL IV SCH (09:32)
[2017-10-30] MEDS: MUPIROCIN 2% OINT 22 GM TUBE TOP SCH ×2 (09:32→21:03)
[2017-10-30] MEDS: INSULIN GLARGINE 100 UNIT/ML SUBCUT SCH (09:32)
[2017-10-30] MEDS: GENTAMICIN 0.1% CREAM 15 GM TUBE TOP SCH (09:33)
[2017-10-30] MEDS: MINERAL OIL/PETROLATUM OPH OINT 3.5 GM TUBE BOTH EYES SCH ×3 (09:34→21:05)
[2017-10-30] MEDS: CEFEPIME 2,000 MG in SYRINGE 1 EACH IV SCH ×2 (09:35→21:05)
[2017-10-30] MEDS: PROPOFOL 1,000 MG/100 ML BOTTLE IV SCH (10:14)
[2017-10-30 12:23] LABS: Basophils % 0.3 % (0.0-0.8); Eosinophils # 0.1 10*3/uL (0.0-0.87); Eosinophils % 1.2 % (0.00-10.9); Hematocrit 24.9 VOL% (35.7-47.0); Hemoglobin 8.4 GM/DL (12.0-16.0); Immature Granulocytes % 1.4 %; Immature Granulocytes Absolute 0.11 #; Lymphocytes # 0.3 10*3/uL (1.4-4.0); Lymphocytes % 3.3 % (21.3-54.2); Mean Corpuscular HGB Conc 33.7 GM/DL (32-36); Mean Corpuscular Hemoglobin 29 PG (27-34); Mean Corpuscular Volume 86.5 FL (87-102); Monocytes # 0.1 10*3/uL (0.11-0.8); Monocytes % 1.4 % (1.7-12.7); Neutrophils # 7.2 10*3/uL (1.4-7.4); Neutrophils % 92.4 % (38.7-73.9); Platelet Count 75 T/CUMM (130-400); Red Blood Count 2.88 MC/CUMM (3.8-5.5); Red Cell Distribution Width 16.4 % (9.3-17.3); White Blood Count 7.8 T/CUMM (4-12)
[2017-10-30 13:02] LABS: Band Neutrophils 6 % (0-10); Eosinophils 1 % (0-10); Hypochromasia 1+; Lymphocytes 4 % (20-55); Microcytosis 1+; Platelet Estimate Decreased; Segmented Neutrophils 88 % (50-85); Total Cells Counted 100
[2017-10-30 13:03] LABS: Ovalocytes Slight; Target Cells Slight
[2017-10-30] MEDS: METOPROLOL TARTRATE 5 MG/5 ML VIAL IV SCH ×2 (14:34→14:46)
[2017-10-30] MEDS: LORazepam 2 MG/1 ML VIAL IV PRN (16:54)
[2017-10-30] MEDS: FAT EMULSION 20% 250 ML IV SCH (17:27)
[2017-10-30] MEDS: MULTIVITAMIN IV SCH (17:27)
[2017-10-30] MEDS: [UNRECOGNIZED DRUG - OTHER] IV SCH (17:27)
[2017-10-30] MEDS: INSULIN REGULAR IV SCH (17:27)
[2017-10-30] MEDS: POLYVINYL ALCOHOL 1.4% OPH SOLN 15 ML BOTTLE BOTH EYES PRN (20:00)
[2017-10-30] MEDS: ENOXAPARIN 30 MG/0.3 ML SYRINGE SUBCUT SCH (21:02)
[2017-10-30] MEDS: FLUCONAZOLE INJ 100 MG in IV BAG 1 EACH IV SCH (21:03)
[2017-10-31] MEDS: POLYVINYL ALCOHOL 1.4% OPH SOLN 15 ML BOTTLE BOTH EYES PRN ×4 (00:10→21:03)
[2017-10-31] MEDS: ALUMINUM/MAGNES/SIMETH MAX STR 30 ML UDCUP PO SCH ×5 (00:35→22:31)
[2017-10-31] MEDS: TOBRAMYCIN 0.3% OPH SOLN 5 ML BOTTLE BOTH EYES SCH ×2 (00:36→14:58)
[2017-10-31] MEDS: ALBUMIN 25% 25 GM in PREMIX 1 EACH IV SCH ×2 (00:47→12:21)
[2017-10-31] MEDS: INSULIN REGULAR 100 UNIT/ML SUBCUT SCH ×4 (00:47→18:40)
[2017-10-31] MEDS: hydrALAZINE 20 MG/1 ML VIAL IV PRN ×2 (04:15→15:05)
[2017-10-31] MEDS: methylPREDNISolone SOD SUC 40 MG/1 ML VIAL IV SCH ×3 (06:23→21:04)
[2017-10-31 07:29] LABS: Basophils % 0.3 % (0.0-0.8); Eosinophils # 0.1 10*3/uL (0.0-0.87); Eosinophils % 1.4 % (0.00-10.9); Hematocrit 23.7 VOL% (35.7-47.0); Hemoglobin 8.1 GM/DL (12.0-16.0); Immature Granulocytes % 1.2 %; Immature Granulocytes Absolute 0.09 #; Lymphocytes # 0.2 10*3/uL (1.4-4.0); Lymphocytes % 2.2 % (21.3-54.2); Mean Corpuscular HGB Conc 34.2 GM/DL (32-36); Mean Corpuscular Hemoglobin 29 PG (27-34); Mean Corpuscular Volume 84.9 FL (87-102); Monocytes # 0.2 10*3/uL (0.11-0.8); Monocytes % 2.2 % (1.7-12.7); Neutrophils # 7.1 10*3/uL (1.4-7.4); Neutrophils % 92.7 % (38.7-73.9); Platelet Count 77 T/CUMM (130-400); Red Blood Count 2.79 MC/CUMM (3.8-5.5); Red Cell Distribution Width 16.6 % (9.3-17.3); White Blood Count 7.6 T/CUMM (4-12)
[2017-10-31] MEDS: ARFORMOTEROL 15 MCG/2 ML NEB RESP TX SCH ×2 (07:40→19:50)
[2017-10-31] MEDS: DORNASE ALFA 2.5 MG/2.5 ML VIAL RESP TX SCH ×2 (07:40→19:55)
[2017-10-31 07:51] LABS: Albumin 3.5 G/DL (3.4-5.0); Bilirubin,Total 6.9 MG/DL (0.2-1.0); Calcium 9.3 MG/DL (8.5-10.1); Osmolality,Calculated 320.5 MOS/KG (273-304); Total Protein 5.8 G/DL (6.4-8.3)
[2017-10-31 07:59] LABS: Band Neutrophils 2 % (0-10); Eosinophils 1 % (0-10); Giant Platelets Few; Hypochromasia 1+; Lymphocytes 6 % (20-55); Ovalocytes Slight; Platelet Estimate Decreased; Segmented Neutrophils 88 % (50-85); Total Cells Counted 100
[2017-10-31 08:00] LABS: Microcytosis Slight; Prealbumin 17.4 MG/DL (20-40)
[2017-10-31] MEDS: GENTAMICIN 0.1% CREAM 15 GM TUBE TOP SCH (09:00)
[2017-10-31] MEDS: ZINC OXIDE PASTE 113 GM TUBE TOP SCH (09:00)
[2017-10-31] MEDS: SKIN HEALING OINT (AQUAPHOR) 50 GM TUBE TOP SCH (09:00)
[2017-10-31] MEDS: MUPIROCIN 2% OINT 22 GM TUBE TOP SCH ×2 (09:03→21:02)
[2017-10-31] MEDS: CEFEPIME 2,000 MG in SYRINGE 1 EACH IV SCH ×2 (09:04→21:04)
[2017-10-31] MEDS: FAMOTIDINE 20 MG/2 ML VIAL IV SCH (09:04)
[2017-10-31] MEDS: INSULIN GLARGINE 100 UNIT/ML SUBCUT SCH (09:06)
[2017-10-31] MEDS: MINERAL OIL/PETROLATUM OPH OINT 3.5 GM TUBE BOTH EYES SCH ×3 (09:14→21:03)
[2017-10-31] MEDS: PROPOFOL 1,000 MG/100 ML BOTTLE IV SCH (12:24)
[2017-10-31] MEDS: FAT EMULSION 20% 250 ML IV SCH (14:57)
[2017-10-31] MEDS: INSULIN REGULAR IV SCH (17:11)
[2017-10-31] MEDS: [UNRECOGNIZED DRUG - OTHER] IV SCH (17:11)
[2017-10-31] MEDS: MULTIVITAMIN IV SCH (17:11)
[2017-10-31] MEDS: DEXTROSE IV SCH (17:11)
[2017-10-31] MEDS: LORazepam 2 MG/1 ML VIAL IV PRN (17:29)
[2017-10-31] MEDS: ENOXAPARIN 30 MG/0.3 ML SYRINGE SUBCUT SCH (21:02)
[2017-10-31] MEDS ORDERED: INSULIN GLARGINE 100 UNIT/ML SUBCUT SCH (23:35)
[2017-11-01] MEDS: ALBUMIN 25% 25 GM in PREMIX 1 EACH IV SCH ×2 (00:18→11:41)
[2017-11-01] MEDS: INSULIN REGULAR 100 UNIT/ML SUBCUT SCH ×5 (00:18→21:32)
[2017-11-01] MEDS: hydrALAZINE 20 MG/1 ML VIAL IV PRN ×2 (00:28→08:00)
[2017-11-01] MEDS: LORazepam 2 MG/1 ML VIAL IV PRN (00:28)
[2017-11-01] MEDS: TOBRAMYCIN 0.3% OPH SOLN 5 ML BOTTLE BOTH EYES SCH ×2 (00:31→13:50)
[2017-11-01] MEDS: PROPOFOL 1,000 MG/100 ML BOTTLE IV SCH ×7 (03:38→21:58)
[2017-11-01 04:12] LABS: Allen Test Positive; Pt O2 Delivery Device Ventilator
[2017-11-01 04:13] LABS: ABG Base Excess -1.2 MMOL/L (-2.5-2.5); ABG HCO3 22.9 MMOL/L (20-26); ABG Oxygen Saturation 92.3 % (95-100); ABG PCO2 35.1 MM HG (35-48); ABG PH 7.432 (7.35-7.45); ABG PO2 68.1 MM HG (80-95)
[2017-11-01] MEDS: ALUMINUM/MAGNES/SIMETH MAX STR 30 ML UDCUP PO SCH ×3 (06:21→19:40)
[2017-11-01] MEDS: methylPREDNISolone SOD SUC 40 MG/1 ML VIAL IV SCH ×3 (06:21→21:31)
[2017-11-01] MEDS: DORNASE ALFA 2.5 MG/2.5 ML VIAL RESP TX SCH (07:36)
[2017-11-01] MEDS: ARFORMOTEROL 15 MCG/2 ML NEB RESP TX SCH ×2 (07:36→19:42)
[2017-11-01 07:58] LABS: Basophils % 0.3 % (0.0-0.8); Eosinophils # 0.2 10*3/uL (0.0-0.87); Eosinophils % 3.1 % (0.00-10.9); Hematocrit 19.9 VOL% (35.7-47.0); Hemoglobin 7.7 GM/DL (12.0-16.0); Immature Granulocytes % 1.5 %; Immature Granulocytes Absolute 0.11 #; Lymphocytes # 0.3 10*3/uL (1.4-4.0); Lymphocytes % 3.5 % (21.3-54.2); Mean Corpuscular HGB Conc 38.7 GM/DL (32-36); Mean Corpuscular Hemoglobin 33 PG (27-34); Mean Corpuscular Volume 84.3 FL (87-102); Monocytes # 0.2 10*3/uL (0.11-0.8); Monocytes % 2.8 % (1.7-12.7); Neutrophils # 6.6 10*3/uL (1.4-7.4); Neutrophils % 88.8 % (38.7-73.9); Platelet Count 76 T/CUMM (130-400); Red Blood Count 2.36 MC/CUMM (3.8-5.5); Red Cell Distribution Width 16.7 % (9.3-17.3); White Blood Count 7.4 T/CUMM (4-12)
[2017-11-01 08:22] LABS: Band Neutrophils 5 % (0-10); Eosinophils 3 % (0-10); Lymphocytes 6 % (20-55); Myelocytes 2 %; Segmented Neutrophils 78 % (50-85); Total Cells Counted 100
[2017-11-01 08:23] LABS: Hypochromasia 1+
[2017-11-01 08:24] LABS: Microcytosis Slight; Target Cells Few
[2017-11-01 08:25] LABS: Platelet Estimate Decreased
[2017-11-01 08:45] LABS: Albumin 3.3 G/DL (3.4-5.0); Bilirubin,Total 7.2 MG/DL (0.2-1.0); Calcium 8.2 MG/DL (8.5-10.1); Osmolality,Calculated 300.9 MOS/KG (273-304); Potassium 4.2 MMOL/L (3.5-5.1); Total Protein 5.5 G/DL (6.4-8.3)
[2017-11-01] MEDS: SKIN HEALING OINT (AQUAPHOR) 50 GM TUBE TOP SCH (11:37)
[2017-11-01] MEDS: FAMOTIDINE 20 MG/2 ML VIAL IV SCH (11:38)
[2017-11-01] MEDS: MUPIROCIN 2% OINT 22 GM TUBE TOP SCH ×2 (11:38→21:36)
[2017-11-01] MEDS: ZINC OXIDE PASTE 113 GM TUBE TOP SCH (11:38)
[2017-11-01] MEDS: GENTAMICIN 0.1% CREAM 15 GM TUBE TOP SCH (11:38)
[2017-11-01] MEDS: MINERAL OIL/PETROLATUM OPH OINT 3.5 GM TUBE BOTH EYES SCH ×3 (11:39→21:37)
[2017-11-01] MEDS: CEFEPIME 2,000 MG in SYRINGE 1 EACH IV SCH ×2 (11:39→21:25)
[2017-11-01] MEDS ORDERED: SODIUM CHLORIDE 0.9% 1,000 ML IV PRN (12:33)
[2017-11-01] MEDS: FAT EMULSION 20% 250 ML IV SCH (19:38)
[2017-11-01] MEDS: [UNRECOGNIZED DRUG - OTHER] IV SCH (19:39)
[2017-11-01] MEDS: DEXTROSE IV SCH (19:39)
[2017-11-01] MEDS: INSULIN REGULAR IV SCH (19:39)
[2017-11-01] MEDS: MULTIVITAMIN IV SCH (19:39)
[2017-11-01] MEDS: ENOXAPARIN 30 MG/0.3 ML SYRINGE SUBCUT SCH (21:29)
[2017-11-01] MEDS: FLUCONAZOLE INJ 100 MG in IV BAG 1 EACH IV SCH (21:52)
[2017-11-02] MEDS: ALUMINUM/MAGNES/SIMETH MAX STR 30 ML UDCUP PO SCH ×4 (00:39→17:41)
[2017-11-02] MEDS: INSULIN REGULAR 100 UNIT/ML SUBCUT SCH ×10 (00:40→21:17)
[2017-11-02] MEDS: PROPOFOL 1,000 MG/100 ML BOTTLE IV SCH ×9 (00:57→23:06)
[2017-11-02] MEDS: TOBRAMYCIN 0.3% OPH SOLN 5 ML BOTTLE BOTH EYES SCH ×2 (01:01→16:09)
[2017-11-02 04:25] LABS: ABG Base Excess -4.8 MMOL/L (-2.5-2.5); ABG HCO3 20.4 MMOL/L (20-26); ABG Oxygen Saturation 95.3 % (95-100); ABG PCO2 42.9 MM HG (35-48); ABG PH 7.304 (7.35-7.45); ABG PO2 81.1 MM HG (80-95); ABG TCO2 19.9 MMOL/L (23-27); Allen Test Positive; Pt O2 Delivery Device Ventilator
[2017-11-02] MEDS: methylPREDNISolone SOD SUC 40 MG/1 ML VIAL IV SCH ×3 (05:40→21:17)
[2017-11-02] MEDS: ALBUMIN 25% 25 GM in PREMIX 1 EACH IV SCH ×2 (05:48→17:40)
[2017-11-02 06:30] LABS: Basophils % 0.4 % (0.0-0.8); Eosinophils # 0.1 10*3/uL (0.0-0.87); Eosinophils % 1.8 % (0.00-10.9); Hematocrit 26.1 VOL% (35.7-47.0); Hemoglobin 9.2 GM/DL (12.0-16.0); Immature Granulocytes % 1.6 %; Immature Granulocytes Absolute 0.11 #; Lymphocytes # 0.2 10*3/uL (1.4-4.0); Lymphocytes % 3.4 % (21.3-54.2); Mean Corpuscular HGB Conc 35.2 GM/DL (32-36); Mean Corpuscular Hemoglobin 29 PG (27-34); Mean Corpuscular Volume 83.4 FL (87-102); Monocytes # 0.2 10*3/uL (0.11-0.8); Monocytes % 3.4 % (1.7-12.7); Neutrophils # 6.3 10*3/uL (1.4-7.4); Neutrophils % 89.4 % (38.7-73.9); Platelet Count 84 T/CUMM (130-400); Red Blood Count 3.13 MC/CUMM (3.8-5.5); Red Cell Distribution Width 16.7 % (9.3-17.3); White Blood Count 7.1 T/CUMM (4-12)
[2017-11-02 06:54] LABS: Band Neutrophils 16 % (0-10); Eosinophils 1 % (0-10); Lymphocytes 8 % (20-55); Segmented Neutrophils 70 % (50-85); Total Cells Counted 100
[2017-11-02 06:55] LABS: Hypochromasia 2+; Platelet Estimate Decreased; Target Cells Slight
[2017-11-02 07:16] LABS: Albumin 3.3 G/DL (3.4-5.0); Bilirubin,Total 7.8 MG/DL (0.2-1.0); Osmolality,Calculated 311.9 MOS/KG (273-304); Potassium 4.5 MMOL/L (3.5-5.1)
[2017-11-02] MEDS: ARFORMOTEROL 15 MCG/2 ML NEB RESP TX SCH ×2 (07:37→19:43)
[2017-11-02] MEDS: INSULIN GLARGINE 100 UNIT/ML SUBCUT SCH (08:45)
[2017-11-02] MEDS: FAMOTIDINE 20 MG/2 ML VIAL IV SCH (08:45)
[2017-11-02] MEDS: GENTAMICIN 0.1% CREAM 15 GM TUBE TOP SCH (08:46)
[2017-11-02] MEDS: cloNIDine 0.2 MG/24 HR PATCH TRANSDERM SCH (08:46)
[2017-11-02] MEDS: ZINC OXIDE PASTE 113 GM TUBE TOP SCH (08:47)
[2017-11-02] MEDS: SKIN HEALING OINT (AQUAPHOR) 50 GM TUBE TOP SCH (08:47)
[2017-11-02] MEDS: MINERAL OIL/PETROLATUM OPH OINT 3.5 GM TUBE BOTH EYES SCH ×3 (08:47→21:26)
[2017-11-02] MEDS: MUPIROCIN 2% OINT 22 GM TUBE TOP SCH ×2 (08:47→21:25)
[2017-11-02] MEDS: CEFEPIME 2,000 MG in SYRINGE 1 EACH IV SCH ×2 (09:30→21:26)
[2017-11-02] MEDS: FAT EMULSION 20% 250 ML IV SCH (15:44)
[2017-11-02] MEDS ORDERED: METOCLOPRAMIDE 10 MG/2 ML VIAL IV SCH (18:00)
[2017-11-02] MEDS: MULTIVITAMIN IV SCH ×2 (21:01→23:11)
[2017-11-02] MEDS: DEXTROSE IV SCH ×2 (21:01→23:11)
[2017-11-02] MEDS: [UNRECOGNIZED DRUG - OTHER] IV SCH ×2 (21:01→23:11)
[2017-11-02] MEDS: INSULIN REGULAR IV SCH ×2 (21:01→23:11)
[2017-11-02] MEDS: ENOXAPARIN 30 MG/0.3 ML SYRINGE SUBCUT SCH (21:25)
[2017-11-03] MEDS: ALUMINUM/MAGNES/SIMETH MAX STR 30 ML UDCUP PO SCH ×4 (00:38→17:03)
[2017-11-03] MEDS: TOBRAMYCIN 0.3% OPH SOLN 5 ML BOTTLE BOTH EYES SCH ×2 (00:38→14:37)
[2017-11-03] MEDS: INSULIN REGULAR 100 UNIT/ML SUBCUT SCH ×10 (00:38→21:34)
[2017-11-03] MEDS: ALBUTEROL/IPRATROPIUM 3 ML NEB RESP TX PRN (01:50)
[2017-11-03] MEDS: PROPOFOL 1,000 MG/100 ML BOTTLE IV SCH ×7 (02:04→22:13)
[2017-11-03 03:50] LABS: ABG Base Excess -4.2 MMOL/L (-2.5-2.5); ABG HCO3 22.1 MMOL/L (20-26); ABG Oxygen Saturation 97.6 % (95-100); ABG PCO2 46.1 MM HG (35-48); ABG PH 7.298 (7.35-7.45); ABG PO2 112.8 MM HG (80-95); ABG TCO2 23.5 MMOL/L (23-27); Allen Test Positive; Pt O2 Delivery Device Ventilator
[2017-11-03 06:14] LABS: Basophils % 0.2 % (0.0-0.8); Eosinophils # 0.3 10*3/uL (0.0-0.87); Hematocrit 23.7 VOL% (35.7-47.0); Hemoglobin 8.1 GM/DL (12.0-16.0); Immature Granulocytes % 1.1 %; Lymphocytes # 0.3 10*3/uL (1.4-4.0); Lymphocytes % 2.8 % (21.3-54.2); Mean Corpuscular HGB Conc 34.2 GM/DL (32-36); Mean Corpuscular Hemoglobin 29 PG (27-34); Mean Corpuscular Volume 85.9 FL (87-102); Monocytes # 0.3 10*3/uL (0.11-0.8); Monocytes % 3.5 % (1.7-12.7); NRBC # 0.03 10*3/uL; Neutrophils # 8.1 10*3/uL (1.4-7.4); Neutrophils % 89.4 % (38.7-73.9); Platelet Count 72 T/CUMM (130-400); Red Blood Count 2.76 MC/CUMM (3.8-5.5); White Blood Count 9.1 T/CUMM (4-12)
[2017-11-03] MEDS: ALBUMIN 25% 25 GM in PREMIX 1 EACH IV SCH ×2 (06:20→17:03)
[2017-11-03] MEDS: methylPREDNISolone SOD SUC 40 MG/1 ML VIAL IV SCH ×3 (06:24→21:31)
[2017-11-03 06:38] LABS: Band Neutrophils 6 % (0-10); Burr Cells Slight; Eosinophils 3 % (0-10); Giant Platelets Few; Hypochromasia 1+; Lymphocytes 4 % (20-55); Platelet Estimate Decreased; Segmented Neutrophils 84 % (50-85); Total Cells Counted 100
[2017-11-03 06:40] LABS: Microcytosis Slight
[2017-11-03 06:58] LABS: Prealbumin 15.6 MG/DL (20-40)
[2017-11-03 07:02] LABS: Albumin 3.2 G/DL (3.4-5.0); Bilirubin,Total 7.5 MG/DL (0.2-1.0); Calcium 9.1 MG/DL (8.5-10.1); Osmolality,Calculated 291.7 MOS/KG (273-304); Potassium 4.2 MMOL/L (3.5-5.1); Total Protein 5.7 G/DL (6.4-8.3)
[2017-11-03] MEDS: ARFORMOTEROL 15 MCG/2 ML NEB RESP TX SCH ×2 (07:59→19:16)
[2017-11-03] MEDS: ZINC OXIDE PASTE 113 GM TUBE TOP SCH (09:55)
[2017-11-03] MEDS: GENTAMICIN 0.1% CREAM 15 GM TUBE TOP SCH (09:55)
[2017-11-03] MEDS: SKIN HEALING OINT (AQUAPHOR) 50 GM TUBE TOP SCH (09:55)
[2017-11-03] MEDS: MUPIROCIN 2% OINT 22 GM TUBE TOP SCH ×2 (09:55→21:37)
[2017-11-03] MEDS: MINERAL OIL/PETROLATUM OPH OINT 3.5 GM TUBE BOTH EYES SCH ×3 (09:56→21:37)
[2017-11-03] MEDS: CEFEPIME 2,000 MG in SYRINGE 1 EACH IV SCH ×2 (09:56→21:34)
[2017-11-03] MEDS: INSULIN GLARGINE 100 UNIT/ML SUBCUT SCH (09:56)
[2017-11-03] MEDS: FAMOTIDINE 20 MG/2 ML VIAL IV SCH (09:56)
[2017-11-03] MEDS: INSULIN REGULAR IV SCH (17:02)
[2017-11-03] MEDS: [UNRECOGNIZED DRUG - OTHER] IV SCH (17:02)
[2017-11-03] MEDS: DEXTROSE IV SCH (17:02)
[2017-11-03] MEDS: MULTIVITAMIN IV SCH (17:02)
[2017-11-03] MEDS ORDERED: NOREPINEPHRINE 4 MG/4 ML VIAL IV ONE (18:49)
[2017-11-03] MEDS: SODIUM CHLORIDE 0.9% 150 ML IV SCH (18:52)
[2017-11-03] MEDS ORDERED: NOREPINEPHRINE 8 MG in SODIUM CHLORIDE 0.9% 242 ML IV SCH (19:00)
[2017-11-03] MEDS ORDERED: SODIUM CHLORIDE 0.9% 150 ML IV ONE (21:00)
[2017-11-03] MEDS: FLUCONAZOLE INJ 100 MG in IV BAG 1 EACH IV SCH (22:23)
[2017-11-04] MEDS: TOBRAMYCIN 0.3% OPH SOLN 5 ML BOTTLE BOTH EYES SCH ×2 (01:21→14:36)
[2017-11-04] MEDS: ALUMINUM/MAGNES/SIMETH MAX STR 30 ML UDCUP PO SCH ×3 (01:21→11:41)
[2017-11-04] MEDS: INSULIN REGULAR 100 UNIT/ML SUBCUT SCH ×7 (01:21→14:36)
[2017-11-04] MEDS: PROPOFOL 1,000 MG/100 ML BOTTLE IV SCH ×3 (01:22→11:40)
[2017-11-04 03:31] LABS: ABG Base Excess -4.8 MMOL/L (-2.5-2.5); ABG HCO3 20.5 MMOL/L (20-26); ABG PCO2 43.4 MM HG (35-48); ABG PH 7.301 (7.35-7.45); ABG TCO2 20.1 MMOL/L (23-27); Allen Test Positive; Pt O2 Delivery Device Ventilator
[2017-11-04 03:34] LABS: ABG Oxygen Saturation 99.4 % (95-100)
[2017-11-04] MEDS: SODIUM CHLORIDE 0.9% 150 ML IV SCH (04:11)
[2017-11-04] MEDS: methylPREDNISolone SOD SUC 40 MG/1 ML VIAL IV SCH ×2 (05:48→14:36)
[2017-11-04] MEDS: ALBUMIN 25% 25 GM in PREMIX 1 EACH IV SCH (05:50)
[2017-11-04 06:18] LABS: Albumin 3.1 G/DL (3.4-5.0); Bilirubin,Total 10.9 MG/DL (0.2-1.0); Osmolality,Calculated 291.7 MOS/KG (273-304); Total Protein 5.6 G/DL (6.4-8.3)
[2017-11-04] MEDS: ARFORMOTEROL 15 MCG/2 ML NEB RESP TX SCH (07:25)
[2017-11-04 07:27] LABS: Basophils % 0.2 % (0.0-0.8); Eosinophils # 0.5 10*3/uL (0.0-0.87); Hematocrit 21.9 VOL% (35.7-47.0); Hemoglobin 7.6 GM/DL (12.0-16.0); Immature Granulocytes % 2.9 %; Immature Granulocytes Absolute 0.31 #; Lymphocytes # 0.4 10*3/uL (1.4-4.0); Lymphocytes % 3.7 % (21.3-54.2); Mean Corpuscular HGB Conc 34.7 GM/DL (32-36); Mean Corpuscular Hemoglobin 29 PG (27-34); Mean Corpuscular Volume 84.2 FL (87-102); Monocytes # 0.3 10*3/uL (0.11-0.8); Monocytes % 2.4 % (1.7-12.7); NRBC # 0.02 10*3/uL; Neutrophils # 9.3 10*3/uL (1.4-7.4); Neutrophils % 85.8 % (38.7-73.9); Platelet Count 77 T/CUMM (130-400); Red Cell Distribution Width 17.2 % (9.3-17.3); White Blood Count 10.8 T/CUMM (4-12)
[2017-11-04 07:53] LABS: Band Neutrophils 13 % (0-10); Eosinophils 6 % (0-10); Lymphocytes 4 % (20-55); Segmented Neutrophils 74 % (50-85); Total Cells Counted 100
[2017-11-04 07:54] LABS: Giant Platelets Few; Hypochromasia 1+; Microcytosis Slight; Ovalocytes Slight; Platelet Estimate Decreased
[2017-11-04] MEDS: ZINC OXIDE PASTE 113 GM TUBE TOP SCH (09:43)
[2017-11-04] MEDS: GENTAMICIN 0.1% CREAM 15 GM TUBE TOP SCH (09:43)
[2017-11-04] MEDS: MUPIROCIN 2% OINT 22 GM TUBE TOP SCH (09:43)
[2017-11-04] MEDS: SKIN HEALING OINT (AQUAPHOR) 50 GM TUBE TOP SCH (09:43)
[2017-11-04] MEDS: INSULIN GLARGINE 100 UNIT/ML SUBCUT SCH (09:44)
[2017-11-04] MEDS: FAMOTIDINE 20 MG/2 ML VIAL IV SCH (09:44)
[2017-11-04] MEDS: CEFEPIME 2,000 MG in SYRINGE 1 EACH IV SCH (09:44)
[2017-11-04] MEDS: MINERAL OIL/PETROLATUM OPH OINT 3.5 GM TUBE BOTH EYES SCH ×2 (09:44→14:36)
[2017-11-04] MEDS ORDERED: SODIUM CHLORIDE 0.9% 1,000 ML IV PRN (11:23)
[2017-11-04] MEDS: DEXTROSE 50% 25 GM/50 ML VIAL IV PRN (11:44)
[2017-11-04 14:43] VITALS: BP 141/58
== END 2017-11-04 13:14 | disposition expired | DRG 4 ==
LOC: EDUNIT# → EDBD → N.ED 08:31 → N.EDINP 11:48 → N.4E 15:09 → N.CVR 09-30 10:12 → N.CC 09-30 10:46
PROVIDERS: ADMIT Internal Medicine; ATTEND Internal Medicine